=== PATIENT | female | born 1955 | race Caucasian/White ===

== ENCOUNTER 2025-04-03 09:33 | Outpatient (CLI) | payer MEDICARE, MEDICAID, SELFPAY ==
--- NOTE | 2025-04-03 | ECHO_ITS ---
Patient Info Name: Lluvia Brink Age: 69 years : 1955 Gender: Female Ht: 69 in Wt: 157 lbs BSA: 1.87 m2 HR: 65 bpm BP: 97 / 76 mmHg Technical Quality: Good Exam Date: 04/03/2025 9:54 AM Patient Status: unknown Admit Date: 04/03/2025 Exam Type: CA echo doppler color flow Complete two-dimensional, color flow and Doppler transthoracic echocardiogram is performed. Driver Education Instructor: Cathleen Rogel Attending Provider: Toni Dean DO Summary 1. Complete two-dimensional, color flow and Doppler transthoracic echocardiogram is performed. 2. Left ventricular systolic function is normal, estimated at 55-60. 3. There is severe asymmetric septal increased left ventricular wall thickness. Consistent with hypertrophic cardiomyopathy. 4. The left ventricular diastolic function is grade I diastolic dysfunction. Left Ventricle Left ventricular chamber dimension is normal. Left ventricular systolic function is normal, estimated at 55-60. There is severe asymmetric septal increased left ventricular wall thickness. Consistent with hypertrophic cardiomyopathy. Left ventricular septal wall motion is normal. The left ventricular diastolic function is grade I diastolic dysfunction. Right Ventricle Right ventricular chamber dimension is normal. Right ventricular systolic function is normal. Left Atria Left atrial chamber dimension is normal. Right Atria Right atrial chamber dimension is normal. Aortic Valve The aortic valve is trileaflet. There is no aortic valve sclerosis. There is no aortic valve stenosis. There is no aortic valve regurgitation. Pulmonic Valve The pulmonic valve is normal. There is no pulmonic valve stenosis. There is no pulmonic regurgitation. Mitral Valve The mitral valve has normal leaflets. There is no mitral valve stenosis. There is no mitral valve regurgitation. There is mild mitral valve calcification. Tricuspid Valve The tricuspid valve leaflets are normal. There is no significant tricuspid valve stenosis. There is no tricuspid valve regurgitation. Pericardium/Pleural The pericardium appears normal. There is no pericardial effusion. Inferior Vena Cava Normal inferior vena cava with >50% collapse upon inspiration consistent with normal right atrial pressure, 5 mmHg. Aorta The aortic root size at the sinus of Valsalva is normal. The prox ascending aorta size is normal. Left Ventricular Outflow Tract Name Value Normal LVOT 2D LVOT Diameter 2.0 cm LVOT Doppler LVOT Peak Velocity 174 cm/s LVOT Peak Gradient 12 mmHg LVOT Mean Gradient 6 mmHg LVOT VTI 36 cm LVOT VTI/AV VTI Ratio 0.9 LVOT Stroke Volume 113 ml LVOT CO 7.1 l/min LVOT CI 3.8 l/min/m2 Pulmonic Valve Name Value Normal RVOT Doppler RVOT Peak Velocity 121 cm/s RVOT Peak Gradient 6 mmHg PV Doppler PV Peak Velocity 125 cm/s PV Peak Gradient 6 mmHg Mitral Valve Name Value Normal MV Diastolic Function MV E Peak Velocity 60 cm/s MV A Peak Velocity 90 cm/s MV E/A 0.7 MV Decel Time (PW) 276 ms MV Annular TDI MV E/e' (Septal) 18.8 MV E/e' (Lateral) 10.7 MV E/e' (Average) 14.8 Tricuspid Valve Name Value Normal Estimated PAP/RSVP RA Pressure 5 mmHg <=5 Aortic Valve Name Value Normal AV Doppler AV Peak Velocity 185 cm/s AV Peak Gradient 14 mmHg AV Mean Gradient 7 mmHg AV VTI 39 cm AV Area (Cont Eq VTI) 2.9 cm2 >=3.0 AV Area (Cont Eq Nir) 2.9 cm2 AV DI (Nir) 0.94 AV Regurgitation 2D LVOT Area 3.1 cm2 Ventricles Name Value Normal LV Dimensions 2D/MM IVS Diastolic Thickness (2D) 2.4 cm 0.6-1.0 LVID Diastole (2D) 2.5 cm 3.8-5.2 LVIW Diastolic Thickness (2D) 1.1 cm 0.6-0.9 LVID Systole (2D) 1.8 cm 2.2-3.5 LVOT Diameter 2.0 cm LV Mass (2D Cubed) 166.41 g 67.00-162.00 LV Mass Index (2D Cubed) 89 g/m2 43-95 Relative Wall Thickness (2D) 0.87 <=0.42 LV Fractional Shortening/Ejection Fraction 2D/MM LV Fractional Shortening (2D) 30 % 27-45 LV EF (2D Teichholz) 59 % LV Diastolic Volume (4C MOD) 101 ml LV EF (4C MOD) 76 % LV Diastolic Volume (2C MOD) 92 ml LV EF (2C MOD) 81 % LV Diastolic Volume (BP MOD) 96 ml 46-106 LV Diastolic Volume Index (BP MOD) 52 ml/m2 29-61 LV Systolic Volume (BP MOD) 22 ml 14-42 LV Systolic Volume Index (BP MOD) 12 ml/m2 8-24 LV EF (BP MOD) 77 % 54-74 LV Diastolic Length (4C) 8.5 cm LV Systolic Length (4C) 6.1 cm LV Stroke Volume (4C MOD) 76 ml Atria Name Value Normal LA Dimensions LA Volume (4C A-L) 43 ml LA Volume (BP A-L) 48 ml RA Dimensions RA Area (4C) 12.1 cm2 <=18.0 Report Signatures
--- OUTSIDE RECORDS SUMMARY | 2025-04-03 10:16 | XMS_ITS ---
Author Organization [facility] Address [address] [place] [address] Care Team Providers Care Product Marketing Director Name Role Phone Darin Valles Primary Care Provider + Portillo Maciel MD Unavailable Pradeep Guerra MD Unavailable Active Problems Problem Noted Date Diagnosed Date Constipation 03/06/2025 Assessment & Plan (03/06/2025 2:03 PM CDT): - 03/06: no BM since admission, milk of magnesia ordered Abnormal CT scan 03/05/2025 Assessment & Plan (03/05/2025 11:07 AM CDT): - Right adnexal cystic lesions maximally measures 3.4 cm. These are slightly increased in size since 07/23/2021. Can consider follow-up imaging in 6-12 months to assess for interval change. - 03/05: discussed with patient at bedside ABLA (acute blood loss anemia) 03/04/2025 Assessment & Plan (03/04/2025 2:46 PM CDT): - Hgb 11.4 on admission - 03/01: Hgb 10.7 - CBC as indicated Discharge planning issues 03/04/2025 Assessment & Plan (03/06/2025 1:59 PM CDT): - 03/04: Patient is medically stable for discharge, SW/CM updated. Discharge pending family choice of facility - : Patient is medically stable for discharge, SW/CM updated. Discharge pending insurance authorization [x] treatment plan note Acute pain due to trauma 03/04/2025 Assessment & Plan (03/04/2025 2:47 PM CDT): - tylenol 1000 mg q6h - Ibuprofen 800 mg TID PRN - Oxycodone 5 mg q4h PRN Other closed displaced fract ure of proximal end of left humerus, initial encounter 03/02/2025 Assessment & Plan (03/06/2025 3:33 PM CDT): S/p mechanical fall. L proximal humerus fracture and L scapular body fracture. Ambulates with a walker at baseline, L arm dominant. -Ortho consulted - nonop management. -NWB LUE per ortho -Sling, out for ROM -PT/OT, pain control - DVT ppx at discharge: Eliquis 2.5 mg BID x 6 weeks - Follow up with Ortho Trauma 04/15/25 Pubic ramus fracture 03/02/2025 Assessment & Plan (03/06/2025 3:33 PM CDT): Left superior and inferior mildly displaced pubic rami fractures -Ortho consulted -CT pelvis and pelvic XR - non operative management - WBAT BLE - PT/OT, pain control - DVT ppx at discharge: Eliquis 2.5 mg BID x 6 weeks - Follow up with Ortho Trauma 04/15/25 Seizure disorder 03/02/2025 Assessment & Plan (03/02/2025 5:10 PM CDT): History of seizure disorder. -continue home meds: lamotrigine 200 mg BID, Keppra 750 mg BID, phenobarb 64.8 mg TID Calculus of gallbladder with out cholecystitis without obstruction 09/28/2021 Overview (09/28/2021): Added automatically from request for surgery [id number] Abnormal electrocardiogram (ECG) (EKG) Allergic rhinitis 09/07/2021 Asthma 09/07/2021 Assessment & Plan (03/04/2025 2:48 PM CDT): - continue home singulair Candidiasis 09/07/2021 Disorder of vitamin B12 09/07/2021 Folliculitis 09/07/2021 Gastroesophageal reflux disease 09/07/2021 Hyperlipidemia 09/07/2021 Pneumonia 09/07/2021 Pure hypercholesterolemia 09/07/2021 Assessment & Plan (03/04/2025 2:47 PM CDT): - continue home atorvastatin Vitamin D deficiency 09/07/2021 Anxiety 07/09/2021 Assessment & Plan (03/04/2025 2:54 PM CDT): - continue quetiapine 12.5 mg nightly COPD (chronic obstructive pulmonary disease) Assessment & Plan (03/02/2025 5:11 PM CDT): On home O2 2-3 L NC at night. 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 Past Treatment and Therapy Plans No past plan information found. Lifetime Dose Tracking * Chemical Lifetime Dose Automatic Entry Manual Entr y Fluoro Time 0.333 minutes 0.333 minutes 0 minutes Air kerma at the reference point (Ka,r) 1.48 mGy 1 .48 mGy 0 mGy DLP 1,241 mGycm 1,241 mGycm 0 mGycm Treatment Summaries Colon cancer (HCC)* Images from the original note were not included. [facility] [address] [place] [address] This Survivorship Care Plan is a cancer treatment summary and follow-up plan and is provided to youto keep with your health care records and to share with your primary care provider or any of your doctors and nurses. This summary is a brief record of major aspects of your cancer treatment not a detailed or comprehensive record of your care. You should review this with your cancer provider. Treatment Summary and Survivorship Care Plan for Colorectal Cancer General Information Patient name Lluvia Brink (home) Date of 1955 Health Care Providers (Including Names, Institutions) Provider Name: Contact Information: Primary Care Physician Darin Valles PA [phone] Surgeon Portilol Maciel MD [phone] Radiation Oncologist No care service team leader to display Medical Oncologist No care service team leader to display Ferruler Pradeep Guerra MD [phone] Treatment Summary Cancer Diagnosis Information Diagnosis Malignant neoplasm of sigmoid colon (CMS/HCC) (HCC) Diagnosis date 06/10/2021 Staging information Cancer Staging Stage II Predisposing Conditions None Family History of Colon, Rectal or Anal Cancer Colon, Rectal, or Anal Cancer- related family historyis not on file. Received Genetic counseling No Genetic Testing No Pre-op Colonoscopy Yes, sigmoidoscopy Completion to cecum No Treatment Completed Surgery Surgery date 07/24/2021 Surgical procedure / location / findings Laparoscopic Sigmoid Colon Resection and Oophorectomy Radiation No Permanent [place] No Persistent symptoms or side effects that have continued after finishing treatment: None Treatment Ongoing: No Follow-up Care Plan Your follow-up care plan is design to inform you and primary care providers regarding the recommended and required follow-up, cancer screening and routine health maintenance that is needed to maintain optimal health. Schedule of Clinical Visits Coordinating Provider When/How often Colon Surgeon: Portillo Maciel MD History and Physical every 3 months for 2 years then, every 6 months for following 3 years Darin Valles After 5 years of treatment completion - yearly exam Cancer Surveillance or other Recommended Tests Coordinating Provider Test How Often Colon Surgeon: Portillo Maciel MD Colonoscopy 1 year after surgery Colon Surgeon: Portillo Maciel MD CEA blood test Every 3 months for 2 years then every 6 months for following 3 years. Possible late- and long-term effects that someone with this type of cancer and treatment may experience: Bowel problems (urgency, incontinence, change in consistency) Numbness/tingling Fatigue Memory/concentration difficulty Patients receiving radiation therapy for rectal cancer may also experience: Pelvic insufficiency fractures Urinary problems - urinary incontinence Sexual dysfunction - erectile dysfunction, ejaculatory problems, menopause, vaginal dryness, painful intercourse Please continue to see your primary care provider for all general health care recommended for a patient your age, including cancer screening tests, except for colon cancer. Any symptoms should be brought to the attention of your provider: Anything that represents a brand new symptom; Anything that represents a persistent symptom; Anything you are worried about that might be related to the cancer coming back. Cancer survivors may experience issues with the areas listed below. If you have any concerns in these or other areas, please speak with your doctors or nurses to find out how you can get help with them. Anxiety and depression Emotional and mental health Fatigue Fertility Financial advice or assistance Insurance Memory or concentration loss Parenting Physical functioning School/work Sexual functioning Stopping smoking Weight changes Other A number of lifestyle/behaviors can affect your ongoing health, including the risk for the cancer coming back or developing another cancer. Discuss these recommendations with your doctor or nurse: Colon and Rectal cancer require lifelong surveillance. It is essential that you follow your doctors??? recommendations for follow up appointments and tests. Eat a healthy diet: focus on lean meats and proteins, more fruits, vegetables and whole grains and low in sugars and fats. Limit red meat and avoid processed meat. Maintain a healthy weight; avoid being overweight. Aim for a normal body mass index (BMI) of 18.5-24.9. Help learning to eat healthier, call the unit control worker at: [facility] . Have an active lifestyle, strive for 30 minutes of moderate exercise 5 times a week and strength orresistance training at least twice a week. Use broad-spectrum (UVA+UVB) sunscreen with SPF 30 or greater, is water resistant, limit time spentin the sun (10 am-4pm), wear hat, wear UV protective clothing, wear sunglasses. Never use a tanningbed. Skin that was irradiated may be more sensitive over your lifetime. Do not smoke or chew tobacco; participate in a smoking cessation program. Limit alcohol intake, 1 drink per day for a woman and 2 drinks per day for a man. Family members may be at risk for colorectal cancer, please advise your family members to discuss with their primary care physician their risk and screening needs. Family members may be at risk for colorectal cancer, please advise your family members to discuss with their primary care physician their risk and screening needs. Discuss your need for daily aspirin and other healthy life style measures with your primary care physician. Resources you may be interested in: [facility] A National Cancer [place] [facility] http://www.[facility] [place]/ [facility] 1st floor of [facility] [phone]. Computer access, educational material, counseling services (FREE) [employer] Association: the place for ostomy resources, advocacy, and support. www.ostomy.org The ostomy nurse at [facility] can be reached at [phone] Online Resources: www.cancer.net; http://www.cdc.gov/cancer/survivorship; http://www.cancercare.org/tagged/post-treatment_survivorship; http://www.cancer.gov/about-cancer/coping/survivorship [employer]: https://survivorship.cancer.gov/ an online tool for cancer survivors andcaregivers created by the [place] [employer] and the National Cancer [place]. It provides: Information on dealing with side effects from cancer and treatment Caregivers with support and resources Practical advice about talking to friends and family about cancer Questions to ask their health care team Help understanding their rights in the workplace
--- OUTSIDE RECORDS SUMMARY | 2025-04-03 10:16 | XMS_ITS ---
Author Organization [facility] Address [address] [place] [address] Care Team Providers Care Unloading Checker Name Role Phone Maurice Link MD Primary Care Provider [phone] [place] PROTOTYPE CARPENTER-FAMILY LITERACY COORDINATOR Unavailable [phone] Active Problems Problem Noted Date Diagnosed Date Closed displaced trimalleolar fracture of right ankle 04/06/2024 Fall, initial encounter 04/06/2024 Elevated CK 04/06/2024 Closed fracture of right ankle, initial encounte r 04/06/2024 Traumatic rhabdomyolysis, initial encounter 03/12 Ground-level fall 04/06/2024 Epilepsy 07/01/2021 COPD (chronic obstructive pulmonary disease) Acute encephalopathy 07/01/2021 Leukocytosis 07/01/2021 Ileus 07/01/2021 Primary hypertension 07/01/2021 Colon cancer 07/01/2021 Dysuria 06/26/2021 Altered mental status 06/26/2021 Acute cystitis without hematuria 06/26/2021 Dyspnea and respiratory abnormalities 06/26/2021 Seizures 06/26/2021 Current Treatment and Therapy Plans No current plan information found. Past Treatment and Therapy Plans No past plan information found. Lifetime Dose Tracking * Chemical Lifetime Dose Automatic Entry Manual Entr y Dose Length Product 1,297.8 mGy-cm 1,297.8 mGy-cm 0 mG y-cm
--- OUTSIDE RECORDS SUMMARY | 2025-04-03 10:16 | XMS_ITS | Clinical Summary ---
Author Organization [facility] [employer] Address [address] [place] [address] Care Team Providers Care Standards Engineer Name Role Phone Maurice Link MD Primary Care Provider [phone] America Ly APRN-FITNESS INSTRUCTOR Unavailable [phone] Source Comments [facility] [employer],non-owned Affiliates and Associated Physician Practices is amultiple site organization consisting of ambulatory clinics and hospital sitesin [place], [place], [place] and [place]. This disclosure is being madepursuant to the Care Everywhere program and may not contain all information available regarding this patient. Last updated 18.[facility] [employer] Allergies No known active allergies Medications * Be aware that medications may not be up to date on this document. Alwaysverify current medications with the patient. lamoTRIgine (LAMICTAL) 200 MG tablet Take 1 (one) tablet by mouth 2 times daily 1 Active PHENobarbital (LUMINAL) 64.8 MG tablet Take 1 (one) tablet by mouth 2 times daily for 90 days 60 tablet 2 1 04/12/20 25 Active atorvastatin (Lipitor) 40 MG tablet Take 1 (one) tablet by mouth at bedtime Active albuterol HFA (Proventil; Ventolin; Proair) 108 (90 Base) MCG/ACT inhaler Inhale 2 (two) puffs by mouth every 4 hours as needed for Shortness of Breath or Wheezing 4 Active budesonide-form oterol (Symbicort) 80-4.5 MCG/ACT inhaler Inhale 2 (two) puffs by mouth 2 times daily 4 Active polyethylene glycol 3350 (Miralax) 17 g packet Take 17 (seventeen) g by mouth once daily as needed for Constipation 4 Active vitamin D3 (Cholecaciferol ) 125 MCG (5000 UT) tablet Take 1 (one) tablet by mouth once daily 4 Active vitamin D3 (Cholecalcifero l) 25 MCG (1000 UNITS) tablet Take 1 (one) tablet by mouth once daily 4 Active apixaban (Eliquis) 2.5 MG tablet Take 1 (one) tablet by mouth 2 times daily for 35 days 4 Active oxyCODONE, immediate release, (Roxicodone) 5 MG tabletIndicatio ns:Closed bimalleolar fracture, unspecified laterality, initial encounter TAKE 1 TABLET BY MOUTH EVERY 4 HOURS NEEDED FOR PAIN 15 tablet 4 Active oxyCODONE, immediate release, (Roxicodone) 5 MG tabletIndicatio ns:Closed bimalleolar fracture, unspecified laterality, initial encounter Take 1 (one) tablet by mouth every 4 hours as needed 30 tablet 4 Active PHENobarbital 60 MG tablet Take 1 (one) tablet by mouth every 8 hours 90 tablet 3 4 Active Active Problems Problem Noted Date Diagnosed Date [...] Dyspnea and respiratory abnormalities 06/26/2021 Seizures 06/26/2021 Social History Tobacco Use Types Packs/Day Years Used Date Smoking Tobacco: Former Cigarettes Q uit: 07/11/2004 Smokeless Tobacco: Never Tobacco Cessation:Counseling Given: Not Answered Alcohol Use Standard Drinks/Week Comments Never 0 (1 standard drink = 0.6 oz pur e alcohol) AUDIT-C Answer Date Recorded Q1: How often do you have a drink containing alcohol? Never 04/06/2024 Q2: How many drinks containi ng alcohol do you have on a typical day when you are drinking? Patient does not drink Q3: How often do you have si x or more drinks on one occasion? Never 04/06/2024 Overall Financial Resource Strain (CARDIA) Answe r Date Recorded How hard is it for you to pa y for the very basics like food, housing, medical care, and heating? Not hard at all 04/06/2024 PHQ-2 Answer Date Recorded Patient Health Questionnaire-2 Score 0 07/27/2024 [facility] - Occupational Stress Questionnaire Answer Date Recorded Do you feel stress - tense, restless, nervous, or anxious, or unable to sleep at night because your mind is troubled all the time - these days? Not at all 04/06/2024 Hunger Vital Sign Answer Date Recorded Within the past 12 months, y ou worried that your food would run out before you got the money to buy more. Never true 04/06/20 24 Within the past 12 months, t he food you bought just didn't last and you didn't have money to get more. Never true 04/06/2024 PRAPARE - Transportation Answer Date Re corded In the past 12 months, has l ack of transportation kept you from medical appointments or from getting medications? No 03/12 In the past 12 months, has l ack of transportation kept you from meetings, work, or from getting things needed for daily living? No 04/06/2024 Housing Stability Vital Sign Answer Felipe e Recorded In the last 12 months, was t here a time when you were not able to pay the mortgage or rent on time? No 04/06/2024 In the last 12 months, how many places have you lived? 1 04/06/2024 In the last 12 months, was t here a time when you did not have a steady place to sleep or slept in a fpc (including now)? No 04/06/2024 Comments Unknown Sex and Gender Information Value Date Recorded Sex Assigned at Not on file Legal Sex Female 1:57 PM [employer]IDENTIAL [employer] Gender Identity Not on file Sexual Orientation Not on file Last Filed Vital Signs Vital Sign Reading Time Taken Comments Blood Pressure 121/71 05/14/2024 12:12 PM [employer]IDENTIAL [employer]PENTER Pulse 74 05/14/2024 12:12 PM [employer]IDENTIAL [employer]PENTER Temperature 36.2 C (97.2 F) 05/14/2024 12:12 PM [employer]IDENTIAL CARPENTER Respiratory Rate 20 05/14/2024 12:12 PM [employer]IDENTIAL CARPENTER Oxygen Saturation 94% 05/14/2024 12:12 PM [employer]IDENTIAL CARPENTER Inhaled Oxygen Concentration - - Weight 88 kg (194 lb) 07/27/2024 9:25 AM RESIDENTIAL CARPENTER Height 172.7 cm (5' 8) 07/27/2024 9:25 AM [facility]IDENTIAL [facility] Body Mass Index 29.5 07/27/2024 9:25 AM [facility]IDENT[facility] Plan of Treatment Health Maintenance Due Date Last Done Comments BONE DENSITY TESTING 1955 COLOGUARD (AGES 45-75) - COLON CA SCREENING 1955 CT COLONOGRAPHY - COLON CA SCREENING 1955 FIT - COLON CA SCREENING 1955 FLEX SIG - COLON CA SCREENING 1955 MAMMOGRAM 1955 MEDICARE AWV 12 MONTHS 1955 HEPATITIS C SCREENING 06/17/1973 DTAP/TDAP/TD VACCINES (1 - Tdap) 1974 PNEUMOCOCCAL VACCINE 50+ (1 of 2 - PCV) 1974 ZOSTER VACCINE (1 of 2) 2005 Respiratory Syncytial Virus (RSV) Vaccine Pt: or over 60 yrs (1 - Risk 60-74 years 1-dose series) 2015 COVID-19 VACCINE ( - season) 2025 INFLUENZA VACCINE (#1) 2025 2, 04/26/2019, 03/28/2018, Additional history exists SCREENING FOR DIABETES 04/11/2027 4, 04/10/2024, 04/09/2024, Additional history exists COLON MONITORING 07/23/2031 07/23/2021 COLONOSCOPY - COLON CA SCREENING 07/23/2031 07/23/2021 Colorectal Cancer Screening 07/23/2031 DEPRESSION SCREENING Completed 07/27/2024, 06/15/20 24 HEPATITIS B VACCINE Aged Out No longe r eligible based on patient's age to complete this topic HIB VACCINE Aged Out No longer eligi ble based on patient's age to complete this topic HPV VACCINE Aged Out No longer eligi ble based on patient's age to complete this topic MENINGOCOCCAL (Group B) VACCINE SHARED DECISION-MAKING Aged Out No longer eligible based on patient's age to complete this topic MENINGOCOCCAL GROUPS A/C/Y/W VACCINE Aged Out No longer eligible based on patient's age to complete this topic Goals Goal Patient Goal Type Associated Problems Recent Progress Patient-Stated? Author Safety General No Roya English RN Note: Expected end date: 04/13/2024 Interventions: Complete physical therapy Safe discharge Medical Devices Implanted Type Area Software Technical Lead Device Identifier Shelf Expiration Date Model / Serial / Lot Screw 2.7mm 2.1mm 14mm T8 Slf-Tap Lck Implanted:Qty: 2 on 04/09/2024 by Nacho Zavaleta DO at [facility] Right: Ankle [employer] 202.214 / / 3.5 Mm Locking Screws Self Tapping With Start Drive Recess 85mm Implanted:Qty: 1 on 04/09/2024 by Sathish Park MD at [facility] Right: Ankle 204.885 / / Screw 3.5mm 2.9mm 14mm T15 Ft Slf-Tap Implanted:Qty: 1 on 04/09/2024 by Sathish Park MD at [facility] Right: Ankle [employer] 212.103 / / Plate 7 Hl Fib Rt Dist Lat 125mm Contr Implanted:Qty: 1 on 04/09/2024 by Sathish Park MD at [facility] Right: Ankle [employer] [id number] / / Plate 3 Hl Shrp Hk Lopro Precontr Fib Implanted:Qty: 1 on 04/09/2024 by Sathish Park MD at [facility] Right: Ankle [employer] [id number] / / Screw 2.7mm 2.1mm 16mm T8 Slf-Tap Lck Implanted:Qty: 2 on 04/09/2024 by Nacho Zavaleta DO at [facility] Right: Ankle [employer] 202.216 / / Screw 2.7mm 2.1mm 18mm T8 Slf-Tap Lck Implanted:Qty: 3 on 04/09/2024 by Nacho Zavaleta DO at [facility] Right: Ankle [employer] 202.218 / / Screw 3.5mm 6mm 14mm [employer] Slf-Tap Sm Implanted:Qty: 2 on 04/09/2024 by Nacho Zavaleta DO at [facility] Right: Ankle [employer] 204.814 / / Screw 3.5mm 6mm 38mm 2.5mm Ft Slf-Tap Implanted:Qty: 1 on 04/09/2024 by Nacho Zavaleta DO at [facility] Right: Ankle [employer] 204.838 / / Screw 3.5mm 6mm 50mm Slf-Tap Sm Hex Sckt Implanted:Qty: 1 on 04/09/2024 by Nacho Zavaleta DO at [facility] Right: Ankle [employer] 204.850 / / Screw 3.5mm 6mm 55mm 2.5mm Ft Slf-Tap Implanted:Qty: 1 on 04/09/2024 by Nacho Zavaleta DO at [facility] Right: Ankle [employer] 204.855 / / Screw 3.5mm 6mm 44mm 2.5mm Ft Slf-Tap Implanted:Qty: 1 on 04/09/2024 by Nacho Zavaleta DO at [facility] Right: Ankle [employer] 204.844 / / Explanted Type Area Software Technical Lead Device Identifier Shelf Expiration Date Model / Serial / Lot Screw 3.5mm 6mm 95mm [employer] Slf-Tap Sm Explanted:Qty: 1 on 04/09/2024 by Sathish Park MD at [facility] Right: Ankle [employer] 204.895 / / Procedures Procedure Name Priority Date/Time Associated Diagnosis Comments RENAL FUNCTION PANEL Routine 04/11/2024 2:41 AM CDT from Last 3 Months or Most Recently Relevant to Health Maintenance Results * (ABNORMAL) RENAL FUNCTION PANEL (04/11/2024 2:41 AM CDT) BUN 9 7 - 26 mg/dL 04/11/2024 4:09 AM [facility] Creatinine 0.76 0.56 - 0.96 mg/dL 04/11/2024 4:09 AM [facility] Sodium 137 136 - 145 mmol/L 04/11/2024 4:09 AM [facility] Potassium 3.6 3.5 - 4.5 mmol/L 04/11/2024 4:09 AM [facility] Chloride 107 98 - 107 mmol/L 04/11/2024 4:09 AM [facility] CO2 23 22 - 29 mmol/L 04/11/2024 4:09 AM [facility] Glucose 98 70 - 115 mg/dL 04/11/2024 4:09 AM [facility] Albumin 2.6(L) 3.4 - 5.0 g/dL 04/11/2024 4:09 AM [facility] Calcium 9.5 8.4 - 10.2 mg/dL 04/11/2024 4:09 AM [facility] Phosphorus 2.3(L) 2.9 - 5.1 mg/dL 04/11/2024 4:09 AM [facility] Anion Gap 7 6 - 16 04/11/2024 4:09 AM [facility] BUN/Creatinine Ratio 12 7 - 23 04/11/2024 4:09 AM [facility] Osmolality Calculated 283 275 - 295 mOsm/kg 04/11/2024 4:09 AM [facility] eGFR by CKD-EPI 85(L) >=90 mL/min/1.7 3 m2 04/11/2024 4:09 AM [facility] Blood BLOOD SPECIMEN / Unknown Lab Venipuncture / Unknown 04/11/2024 2:41 AM CDT 04/11/2024 3:39 AM CDT us José Miguel Philip MD LAB - CHEMISTRY ORDERABLES F inal Result [facility] [address] [place] [address], [facility] [phone] from Last 3 Months or Most Recently Relevant to Health Maintenance Insurance [facility] MEDICARE Member Subscriber Plan / Payer (Ef fective 2023-Present) Name:Lluvia Brink Member ID:[id number] Relation to Subscriber:Self Name:Lluvia Brink Subscriber ID:[id number] Payer ID:Not on file Group ID:Not on file Type:Medicare Address: [place] [id number] MEDICARE Advance Directives * Full Code (Latest Code Status on File) Date Activated Date Inactivated Comments 04/06/2024 4:50 PM 04/11/2024 6:45 PM * Full Code Date Activated Date Inactivated Comments 06/26/2021 5:21 PM 07/01/2021 2:25 PM Care Teams Standards Engineer Relationship Specialty Start Date End Date Maurice Link MD [address] [place] [address] PCP - General Internal Medicine 07/27/24 America Ly APRN-FITNESS INSTRUCTOR [address] [place] [address] PCP - Attributed-[facility] 02/08/25
--- OUTSIDE RECORDS SUMMARY | 2025-04-03 10:16 | XMS_ITS | Clinical Summary ---
Author Organization [facility] Address [address] [place] [address] Care Team Providers Care [place]. Senator Name Role Phone Darin Valles Primary Care Provider + Portillo Maciel MD Unavailable [phone] Pradeep Guerra MD Unavailable [phone] Allergies Active Allergy Reactions Criticality Noted Date Comments Iodinated Contrast Media Unknown 06/10/2021 Medications lamoTRIgine (LaMICtal) 200 mg tabletIndication s:Tonic-Clonic Epilepsy Take 200 mg by mouth 2 (two) times a day 021 Active PHENobarbitaL (LUMINAL) 60 mg tabletIndication s:seizure disorder Take 64.8 mg by mouth 3 (three) times a day 970 Active cyanocobalamin (Vitamin B-12) 1,000 mcg sublingual tabletIndication s:Prevention of Vitamin B12 Deficiency Take 1,000 mcg by mouth 2 (two) times a day Active bisacodyl EC (DULCOLAX EC) 5 mg EC tabletIndication s:constipation Take 5 mg by mouth daily as needed Active atorvastatin (LIPITOR) 10 mg tabletIndication s:hyperlipidemia Take 10 mg by mouth every morning Active montelukast (SINGULAIR) 10 mg tabletIndication s:Seasonal Allergic Rhinitis Take 10 mg by mouth every morning Active cyanocobalamin (Vitamin B-12) 1,000 mcg/mL injectionIndicat ions:Vitamin B12 Deficiency Inject under the skin every 30 (thirty) days Active medical supply, miscellaneous (MISCELLANEOUS MEDICAL SUPPLY [facility]) nightly HOME OXYGEN AT BEDTIME: 2-3L/NC Active QUEtiapine (SEROquel) 25 mg tablet Take 0.5 tablets (12.5 mg total) by mouth nightly Active acetaminophen 500 mg capsuleIndicatio ns:Pain Take 2 capsules (1,000 mg total) by mouth every 6 (six) hours as needed (pain) Active ibuprofen (ADVIL,MOTRIN) 800 mg tablet Take 1 tablet (800 mg total) by mouth 3 (three) times a day as needed for pain Active apixaban (ELIQUIS) 2.5 mg tabletIndication s:VTE Prophylaxis Take 1 tablet (2.5 mg total) by mouth 2 (two) times a day 84 tablet 2024 Active levETIRAcetam (KEPPRA) 750 mg tablet Take 1 tablet (750 mg total) by mouth 2 (two) times a day Active polyethylene glycol (MIRALAX) 17 gram packetIndication s:constipation Take 1 packet (17 g total) by mouth daily Active senna-docusate (PERICOLACE) 8.6-50 mg Take 1 tablet by mouth 2 (two) times a day Active oxyCODONE (ROXICODONE) 5 mg immediate release tabletIndication s:Pain Take 1 tablet (5 mg total) by mouth every 4 (four) hours as needed for pain 15 tablet Active clonazePAM (KlonoPIN) 0.5 mg tablet every 12 hours 2024 Discontinued(S top Taking at Discharge) acetaminophen 500 mg capsuleIndicatio ns:Pain Take 2 capsules (1,000 mg total) by mouth every 6 (six) hours 30 tablet 2024 Discontinued ibuprofen (ADVIL,MOTRIN) 600 mg tabletIndication s:Postoperative Acute Pain Take 1 tablet (600 mg total) by mouth every 8 (eight) hours 30 tablet 022 2024 Discontinued(S top Taking at Discharge) oxyCODONE (ROXICODONE) 5 mg immediate release tabletIndication s:Pain Take 1 tablet (5 mg total) by mouth every 4 (four) hours as needed (breakthrough pain) 5 tablet 022 2024 Discontinued(S top Taking at Discharge) docusate sodium (COLACE) 100 mg capsuleIndicatio ns:constipation Take 1 capsule (100 mg total) by mouth 2 (two) times a day as needed for constipation with a glass of water. Hold for diarrhea 20 capsule 022 2024 Discontinued(S top Taking at Discharge) oxyCODONE (ROXICODONE) 5 mg immediate release tabletIndication s:Pain Take 1 tablet (5 mg total) by mouth every 4 (four) hours as needed for pain 10 tablet 022 2024 Discontinued Active Problems Problem Noted Date Diagnosed Date [...] Discharge pending family choice of facility - 03/05-: Patient is medically stable for discharge, SW/CM [...] (09/28/2021): Added automatically from request for surgery [id number] Abnormal electrocardiogram (ECG) (EKG) Allergic rhinitis 09/07/2021 [...] strain 03/28/2018 Labyrinthitis 09/07/2016 Pediculosis capitis 06/08/2016 Encounters Date Type Department Care Team Description 03/27/[address] [phone] Mariah Valdes RN 03/02/2025 4:00 AM CDT - 03/06/2025 3:34 PM CDT Hospital Encounter [address] [phone] Cleveland Pierce MD Paulsen, Robbie Ellen, MD Mariee, Joe Semaj, MD Other closed displaced fracture of proximal end of left humerus, initial encounter (Primary Dx); Closed fracture of left scapula, unspecified part of scapula, initial encounter; Closed fracture of left inferior pubic ramus, initial encounter (HCC); Closed fracture of superior ramus of left pubis, initial encounter (HCC) Discharge Disposition: Discharge to [facility] 02/23/2025 Documentation [facility] [address] [place] [address] 4th [address] [place] [address] Iveth Pepe MD from Last 3 Months Surgical History Surgery Date Site/Laterality Comments CARDIAC CATHETERIZATION COLON SURGERY 07/24/2021 SIGMOIDOSCOPY 07/23/2021 CHOLECYSTECTOMY 10/29/2021 Medical History Medical History Date Comments COPD (chronic obstructive pulmonary disease) HTN (hypertension) Heart attack ([facility]) 2008 Colon cancer ([facility]) 04/08/2021 Mild cognitive impairment GERD (gastroesophageal reflux disease) Seizure disorder ([facility]) since age 5 RBBB (right bundle branch block) On home oxygen therapy 2-3L/NC a t night Sleep apnea Family History Medical History Relation Name Comments Stroke Sister Anesthesia problems Neg Hx Relation Name Status Comments Sister Social History Tobacco Use Types Packs/Day Years Used Date Smoking Tobacco: Former Cigarettes Q uit: 2004 Smokeless Tobacco: Never AUDIT-C Answer Date Recorded Q1: How often do you have a drink containing alc ohol? Never 10/21/2021 Average Number of Drinks Not on file 022 Q3: How often do you have si x or more drinks on one occasion? Never 10/21/2021 Personal Safety Answer Date Recorded Have you ever been in or are you currently in a harmful physical or emotional relationship or is someone making you feel afraid or unsafe? 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 Gender Identity Not on file Sexual Orientation Not on file Obstetrics History Last Filed Vital Signs Vital Sign Reading Time Taken Comments Blood Pressure 121/68 03/06/2025 3:58 PM CDT Pulse 71 03/06/2025 3:58 PM CDT Temperature 36.6 C (97.9 F) 03/06/2025 3:58 PM CDT Respiratory Rate 18 03/06/2025 4:41 AM CDT Oxygen Saturation 93% 03/06/2025 3:58 PM CDT Inhaled Oxygen Concentration - - Weight 67.6 kg (149 lb) 03/03/2025 1:21 AM CDT Height 175.3 cm (5' 9) 03/02/2025 4:14 AM CDT Body Mass Index 22 03/02/2025 4:14 AM CDT Plan of Treatment Health Maintenance Due Date Last Done Comments Breast Cancer Screening-Mammogram 1955 Depression Screening 1955 Hepatitis C Screening 1955 Osteoporosis Screening-Bone Density Scan 1955 DTaP/Tdap/Td Vaccine (1 - Tdap) 1966 Hepatitis B Screening 1973 Zoster Vaccine (1 of 2) 2005 Pneumococcal vaccine 65+ (2 of 2 - PCV) 04/08/2018 04/08/2017 Well Visit 65+ 2020 Influenza Vaccine (#1) 2025 2, 04/26/2019, 03/28/2018, Additional history exists Fall Risk Assessment 03/06/2026 03/06/2025 Colon Cancer Screening-Colonoscopy 07/23/20312021 Medical Devices Implanted Type Area Superintendent Stations Device Identifier Shelf Expiration Date Model / Serial / Lot Vesolock [id number] Symmetry Vesolock Large Clip Internal - [id number] - [id number] Implanted:Qty: 2 on 10/29/2021 by Ezequiel Casiano MD PhD at [facility] Clip N/A: Abdomen [employer] 05/11/2024 [id number] / [id number] / [id number] Procedures Procedure Name Priority Date/Time Associated Diagnosis Comments INFECTION PREVENTION SOPHIA AURIS PCR, SURVEILLANCE Routine 03/06/2025 6:09 PM CDT ALBUMIN Routine 03/03/2025 8:06 PM CDT EGFR Routine 03/03/2025 8:06 PM CDT CBC WITHOUT DIFFERENTIAL Routine 03/03/2025 8:06 PM CDT BASIC METABOLIC PANEL Routine 03/03/2025 8:06 PM CDT ECG 12-LEAD Routine 03/02/2025 8:[address] PELVIS WO CONTRAST ED 03/02/2025 2:00 PM CDT XR PELVIS 3 OR MORE VIEWS ED 03/02/2025 1:52 PM CDT XR PELVIS 1 OR 2 VIEWS ED 03/02/2025 11:20 AM CDT XR CHEST 1 VIEW ED 03/02/2025 11:[address] SHOULDER LEFT WO CONTRAST ED Urgent/IP Urgent 03/02/2025 7:22 AM CDT XR SHOULDER LEFT 2 OR MORE VIEWS ED Urgent/IP Urgent 03/02/2025 6:22 AM CDT XR HUMERUS LEFT 2 OR MORE VIEWS ED Urgent/IP Urgent 03/02/2025 5:41 AM CDT EGFR STAT 03/02/2025 4:15 AM CDT DIFFERENTIAL AUTO STAT 03/02/2025 4:1 5 AM CDT PROTIME-INR STAT 03/02/2025 4:15 AM CDT APTT STAT 03/02/2025 4:15 AM CDT CBC WITH AUTO DIFFERENTIAL STAT 03/02/2025 4:15 AM CDT BASIC METABOLIC PANEL STAT 03/02/2025 4:15 AM CDT COLONOSCOPY 07/23/2021 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 Comment: Interpretive Data Testing performed by [facility] using the Jefe rony [id number] Sophia auris assay. This assay detects DNA from Sophia auris using Real-Time PCR. This assay is laboratory developed and is not cleared by the [place] Food and Drug Administration. The performance characteristics have been verified by the [facility]. Axilla/Groin 03/06/2025 6:09 PM CDT 03/06/2025 6:20 PM CDT Narrative HILDA [facility] - 03/07/2025 1:02 AM CDT Order placed by [facility] due to ring surveillance. us Instant Order Generic Provider LAB MICROBIOLOGY - GENERAL ORDERABLES Final Result [facility] [place] [address] [facility] * eGFR (03/03/2025 8:06 PM CDT) eGFR 79 >=60 mL/min/1. 73 m2 Comment: Interpretive Data Reference Interval Normal >/= 90 mL/min/1.73m2 Mildly decreased* 60 - 89 mL/min/1.73m2 Mildly to moderately decreased 45 - 59 mL/min/1.73m2 Moderately to severely decreased 30 - 44 mL/min/1.73m2 Severely decreased 15 - 29 mL/min/1.73m2 Kidney Failure < 15 mL/min/1.73m2 *Relative to young adult level Estimated glomerular filtration rate is determined by the 2020 CKD-EPI equation recommended by the National Kidney Foundation (A Unifying Approach to GFR Estimation: Recommendations of the NKF-ASK Task Force on Reassessing the Inclusion of Race in Diagnosing Kidney Disease, JASN 2020). The CKD-EPI equation should not be used for patients with unstable renal function and has not been validated in children and those over 70. Current interpretive data was last reviewed 2021. Blood 03/03/2025 8:06 PM CDT 03/03/2025 9:18 PM CDT Joe Mariee MD LAB BLOOD ORDERABLES Roberta dolores Result Performing Organization Address [facility] Co de Phone Number [facility] Department [place] [address] * (ABNORMAL) CBC without differential (03/03/2025 8:06 PM CDT) Pathologist [facility] [place] WBC 5.32 3.80 - 9.90 K/cumm Hgb 10.7(L) 11.9 - 15.5 g/dL [facility] Hct 31.9(L) 35.6 - 45.5 % [facility] Plt 199 150 - 400 K/cumm [facility] MPV 10.8 9.1 - 12.3 fL [facility] RBC 3.33(L) 3.90 - 5.20 M/cumm [facility] MCV 95.8 81.3 - 96.4 fL [facility] MCH 32.1 27.1 - 33.3 pg [facility] MCHC 33.5 32.3 - 35.7 g/dL [facility] RDW CV 11.9 11.1 - 14.9 % [facility] RDW SD 41.2 35.7 - 48.1 fL [facility] NRBC abs 0.00 0.00 - 0.01 K/cumm [facility] Blood 03/03/2025 8:06 PM CDT 03/03/2025 9:17 PM CDT Joe Mariee MD LAB BLOOD ORDERABLES Roberta bernal Result Performing Organization Address [facility]/ZIP Co de Phone Number [facility] Department [place] [address] * (ABNORMAL) Albumin (03/03/2025 8:06 PM CDT) Pathologist [facility] [place] Albumin 3.2(L) 3.5 - 5.0 g/dL Blood 03/03/2025 8:06 PM CDT 03/03/2025 9:18 PM CDT Niles Albarran MD LAB BLOOD ORDERABLES Roberta l Result Performing Organization Address [facility]/ZIP Co de Phone Number [facility] [place] [address] * Basic metabolic panel (03/03/2025 8:06 PM CDT) [facility] Sodium 136 135 - 145 mmol/L Potassium, pl 4.0 3.3 - 4.9 mmol/L [facility] Chloride 102 97 - 110 mmol/L [facility] CO2 25 22 - 32 mmol/L [facility] Anion gap 9 2 - 15 mmol/L [facility] BUN 17 6 - 25 mg/dL [facility] Creatinine 0.81 0.60 - 1.10 mg/dL [facility] Glucose 90 70 - 199 mg/dL [facility] Comment: Interpretive Data Fasting glucose >/= 126 mg/dl is diagnostic for diabetes. Fasting is defined as no caloric intake for at least 8 hours. Fasting glucose between 100 mg/dl to 125 mg/dl is diagnostic of prediabetes. In a patient with classic symptoms of hyperglycemia or hyperglycemic crisis, a random glucose >/= 200 mg/dl is diagnostic for diabetes. In the absence of unequivocal hyperglycemia, results should be confirmed by repeat testing. The classification and Diagnosis of Diabetes Diabetes Care 2021; 46: S19-S40. Current interpretive data was last revised 2022. Calcium 9.8 8.5 - 10.3 mg/dL [facility] Blood 03/03/2025 8:06 PM CDT 03/03/2025 9:18 PM CDT Joe Mariee MD LAB BLOOD ORDERABLES Roberta l Result Performing Organization Address [facility] Co de Phone Number [facility] Department [place] [employer] [place] [address] * ECG 12 lead (03/02/2025 8:08 PM CDT) Ventricular Rate EKG/Min 71 BPM [facility] Atrial Rate 71 BPM [facility] ND-Interval (MSEC) 152 ms [facility] QRS-Interval (MSEC) 144 ms [facility] QT-Interval (MSEC) 442 ms [facility] QTc 480 ms [facility] R Truro 227 degrees [facility] T Truro 67 degrees [facility] Diagnosis Normal sinus rhythm Right bundle branch block , plus right ventricular hypertrophy Abnormal ECG Confirmed by Rahul GRANDE, [facility] ([id number]) on 03/05/2025 8:20:01 AM [facility] 03/02/2025 8:08 PM CDT 03/05/2025 8:20 AM CDT us Joe Mariee MD ECG ORDERABLES Final Res ult [facility] * CT Pelvis WO Contrast (03/02/2025 2:00 PM CDT) Anatomical Region Laterality Modality Body N/A Computed Tomogra phy 03/02/2025 2:06 PM CDT Impressions 03/02/2025 4:35 PM CDT 1. Subacute appearing left superior and inferior pubic rami fractures extending to the pubic body with some surrounding osseous callus formation suggesting interval healing. 2. Linear areas of sclerosis involving the sacrum extending into the right and left sacral ala are concerning for sacral insufficiency fractures. Pelvic MRI may be helpful in determining extent of insufficiency fractures. 3. Right adnexal cystic lesions maximally measures 3.4 cm. These are slightly increased in size since 07/23/2021. Can consider follow-up imaging in 6-12 months to assess for interval change. Dictated by: Shahram Darnell MD The radiology attending physician has personally reviewed this study, and had reviewed and/or edited this written report and agrees with it. Electronically signed by: Lashell Card M.D. Narrative 03/02/2025 4:35 PM CDT EXAMINATION: Computed tomography of the pelvis without intravenous contrast HISTORY: Pelvic fracture TECHNIQUE: Transaxial computed tomographic images of the pelvis were obtained without intravenous contrast according to the standard protocol. COMPARISON: August FINDINGS: Comminuted fractures of the left superior and inferior pubic rami with involvement of the pubic body. There is surrounding callus likely reflecting an element of interval healing. Linear sclerotic appearance of the left and right sacral ala, greater on the left, likely reflecting sacral insufficiency fractures. Hips are seated in the acetabula without significant osteoarthritic changes. Evaluation of the intrapelvic structures on this nondedicated examination. Bladder appears normal. Calcified uterine fibroids. No abnormal pelvic lymphadenopathy. Two right adnexal cystic lesions 3.4 and 2.7 cm respectively. These are slightly increased in size since 07/23/2021 Mild scattered atherosclerotic calcifications within the iliac vessels. Imaged portion of the bowel is within normal limits without evidence of obstruction. Surgical changes of lower anterior resection. Procedure Note Lashell Card MD - 03/02/2025 EXAMINATION: Computed tomography of the pelvis without intravenous contrast HISTORY: Pelvic fracture TECHNIQUE: Transaxial computed tomographic images of the pelvis were obtained without intravenous contrast according to the standard protocol. COMPARISON: August FINDINGS: Comminuted fractures of the left superior and inferior pubic rami with involvement of the pubic body. There is surrounding callus likely reflecting an element of interval healing. Linear sclerotic appearance of the left and right sacral ala, greater on the left, likely reflecting sacral insufficiency fractures. Hips are seated in the acetabula without significant osteoarthritic changes. Evaluation of the intrapelvic structures on this nondedicated examination. Bladder appears normal. Calcified uterine fibroids. No abnormal pelvic lymphadenopathy. Two right adnexal cystic lesions 3.4 and 2.7 cm respectively. These are slightly increased in size since 07/23/2021 Mild scattered atherosclerotic calcifications within the iliac vessels. Imaged portion of the bowel is within normal limits without evidence of obstruction. Surgical changes of lower anterior resection. IMPRESSION: 1. Subacute appearing left superior and inferior pubic rami fractures extending to the pubic body with some surrounding osseous callus formation suggesting interval healing. 2. Linear areas of sclerosis involving the sacrum extending into the right and left sacral ala are concerning for sacral insufficiency fractures. Pelvic MRI may be helpful in determining extent of insufficiency fractures. 3. Right adnexal cystic lesions maximally measures 3.4 cm. These are slightly increased in size since 07/23/2021. Can consider follow-up imaging in 6-12 months to assess for interval change. Dictated by: Shahram Darnell MD The radiology attending physician has personally reviewed this study, and had reviewed and/or edited this written report and agrees with it. Electronically signed by: Lashell Card M.D. Piotr Machuca MD IM CT PROCEDURES Final Result * XR Pelvis 3 or More Views (03/02/2025 1:52 PM CDT) Anatomical Region Laterality Modality Pelvis, Body N/A Computed Radiogr aphy 03/02/2025 2:00 PM CDT Impressions 03/02/2025 4:36 PM CDT FINDINGS/IMPRESSION: Fractures of the left inferior and superior pubic rami extending to the pubic body are similar to prior study. Alignment of the hips is within normal limits. Linear areas of sclerosis through the sacrum are better appreciated on the prior CT of the pelvis. Findings are better appreciated on the separately performed CT of the pelvis. Dictated by: Shahram Darnell MD The radiology attending physician has personally reviewed this study, and had reviewed and/or edited this written report and agrees with it. Electronically signed by: Lashell Card M.D. Narrative 03/02/2025 4:36 PM CDT EXAMINATION: XR PELVIS 3 OR MORE VIEWS HISTORY: pain INLET/OUTLET/JUDET VIEWS COMPARISON: Radiograph from 03/02/2025 Procedure Note Lashell Card MD - 03/02/2025 EXAMINATION: XR PELVIS 3 OR MORE VIEWS HISTORY: pain INLET/OUTLET/JUDET VIEWS COMPARISON: Radiograph from 03/02/2025 IMPRESSION: FINDINGS/IMPRESSION: Fractures of the left inferior and superior pubic rami extending to the pubic body are similar to prior study. Alignment of the hips is within normal limits. Linear areas of sclerosis through the sacrum are better appreciated on the prior CT of the pelvis. Findings are better appreciated on the separately performed CT of the pelvis. Dictated by: Shahram Darnell MD The radiology attending physician has personally reviewed this study, and had reviewed and/or edited this written report and agrees with it. Electronically signed by: Lashell Card M.D. Joe Mariee MD IMG XR PROCEDURES Final R esult * XR Pelvis 1 or 2 Views (03/02/2025 11:20 AM CDT) Anatomical Region Laterality Modality Body, Pelvis N/A Computed Radiogr aphy 03/02/2025 11:3 2 AM CDT Impressions 03/02/2025 11:32 AM CDT Chest: Comminuted left humeral neck fracture, better assessed on earlier studies. The heart size and mediastinal contour are normal. No pleural effusion, pneumothorax, pneumonia, or pulmonary edema are present. Pelvis: Left superior and inferior pubic rami mildly displaced fractures. Both hips are seated without identification of additional pelvic fractures. Electronically signed by: Vicente Phillips M.D. Narrative 03/02/2025 11:32 AM CDT EXAMINATION: XR CHEST 1 VIEW, XR PELVIS 1 OR 2 VIEWS HISTORY: Accidental fall COMPARISON: Same-day radiographs and CT of the left shoulder Procedure Note Vicente Phillips MD - 03/02/2025 EXAMINATION: XR CHEST 1 VIEW, XR PELVIS 1 OR 2 VIEWS HISTORY: Accidental fall COMPARISON: Same-day radiographs and CT of the left shoulder IMPRESSION: Chest: Comminuted left humeral neck fracture, better assessed on earlier studies. The heart size and mediastinal contour are normal. No pleural effusion, pneumothorax, pneumonia, or pulmonary edema are present. Pelvis: Left superior and inferior pubic rami mildly displaced fractures. Both hips are seated without identification of additional pelvic fractures. Electronically signed by: Vicente Phillips M.D. Piotr Machuca MD [facility] XR PROCEDURES Final Result * XR Chest 1 Vw Portable (03/02/2025 11:20 AM CDT) Anatomical Region Laterality Modality Body, Chest N/A Computed Radiogr aphy 03/02/2025 11:3 2 AM CDT Impressions 03/02/2025 11:32 AM CDT Chest: Comminuted left humeral neck fracture, better assessed on earlier studies. The heart size and mediastinal contour are normal. No pleural effusion, pneumothorax, pneumonia, or pulmonary edema are present. Pelvis: Left superior and inferior pubic rami mildly displaced fractures. Both hips are seated without identification of additional pelvic fractures. Electronically signed by: Vicente Phillips M.D. Narrative 03/02/2025 11:32 AM CDT EXAMINATION: XR CHEST 1 VIEW, XR PELVIS 1 OR 2 VIEWS HISTORY: Accidental fall COMPARISON: Same-day radiographs and CT of the left shoulder Procedure Note Vicente Phillips MD - 03/02/2025 EXAMINATION: XR CHEST 1 VIEW, XR PELVIS 1 OR 2 VIEWS HISTORY: Accidental fall COMPARISON: Same-day radiographs and CT of the left shoulder IMPRESSION: Chest: Comminuted left humeral neck fracture, better assessed on earlier studies. The heart size and mediastinal contour are normal. No pleural effusion, pneumothorax, pneumonia, or pulmonary edema are present. Pelvis: Left superior and inferior pubic rami mildly displaced fractures. Both hips are seated without identification of additional pelvic fractures. Electronically signed by: Vicente Phillips M.D. Piotr Machuca MD IMG XR PROCEDURES Final Result * CT Shoulder Left WO Contrast (03/02/2025 7:22 AM CDT) Anatomical Region Laterality Modality Upper Extremities Left Computed Tomog christine 03/02/2025 10:1 8 AM CDT Impressions 03/02/2025 10:38 AM CDT 1. Comminuted displaced 2 part proximal humeral fracture. 2. Minimally displaced scapular body fracture. Dictated by: Adri Hays M.D. The radiology attending physician has personally reviewed this study, and had reviewed and/or edited this written report and agrees with it. Electronically signed by: Vicente Phillips M.D. Narrative 03/02/2025 10:38 AM CDT EXAMINATION: CT SHOULDER LEFT WO CONTRAST HISTORY: Left humeral fracture COMPARISON: 03/02/25 x-ray FINDINGS: There is a comminuted 2 part proximal humeral fracture with greater than 1 cm displacement of the proximal humeral shaft with adjacent fat stranding. There is no glenohumeral dislocation. There is internal fixation of the glenoid. There is a minimally displaced scapular body fracture (series 2, image 108 and series 5, image 135). There is no clavicle fracture. Procedure Note Vicente Phillips MD - 03/02/2025 EXAMINATION: CT SHOULDER LEFT WO CONTRAST HISTORY: Left humeral fracture COMPARISON: 03/02/25 x-ray FINDINGS: There is a comminuted 2 part proximal humeral fracture with greater than 1 cm displacement of the proximal humeral shaft with adjacent fat stranding. There is no glenohumeral dislocation. There is internal fixation of the glenoid. There is a minimally displaced scapular body fracture (series 2, image 108 and series 5, image 135). There is no clavicle fracture. IMPRESSION: 1. Comminuted displaced 2 part proximal humeral fracture. 2. Minimally displaced scapular body fracture. Dictated by: Adri Hays M.D. The radiology attending physician has personally reviewed this study, and had reviewed and/or edited this written report and agrees with it. Electronically signed by: Vicente Phillips M.D. Cleveland Christiano Pierce MD IMG CT PROCEDURES Final R esult * XR Shoulder Left 2 or More Views (03/02/2025 6:22 AM CDT) Anatomical Region Laterality Modality Upper Extremities, Shoulder Left Comp uted Radiography 03/02/2025 6:43 AM CDT Impressions 03/02/2025 10:45 AM CDT Comparison to same day radiograph at 5:34 AM. Screw fixation of the glenoid. Redemonstrated transverse fracture of the left humeral surgical neck with medial displacement of the distal fracture fragment. The humeral head is located. Soft tissue swelling about the proximal left arm. Dictated by: Phillip Deleon M.D. The radiology attending physician has personally reviewed this study, and had reviewed and/or edited this written report and agrees with it. Electronically signed by: Vicente Phillips M.D. Narrative 03/02/2025 10:45 AM CDT EXAMINATION: XR SHOULDER LEFT 2 OR MORE VIEWS HISTORY: Fracture Procedure Note Vicente Phillips MD - 03/02/2025 EXAMINATION: XR SHOULDER LEFT 2 OR MORE VIEWS HISTORY: Fracture IMPRESSION: Comparison to same day radiograph at 5:34 AM. Screw fixation of the glenoid. Redemonstrated transverse fracture of the left humeral surgical neck with medial displacement of the distal fracture fragment. The humeral head is located. Soft tissue swelling about the proximal left arm. Dictated by: Phillip Deleon M.D. The radiology attending physician has personally reviewed this study, and had reviewed and/or edited this written report and agrees with it. Electronically signed by: Vicente Phillips M.D. Cleveland Pierce MD IMG XR PROCEDURES Final R esult * XR Humerus Left 2 or More Views (03/02/2025 5:41 AM CDT) Anatomical Region Laterality Modality Upper Extremities, Upper Arm Left Com puted Radiography 03/02/2025 5:53 AM CDT Impressions 03/02/2025 10:42 AM CDT FINDINGS/IMPRESSION: No comparison. Screw fixation of the glenoid. Transverse fracture of the left humeral surgical neck with medial displacement of the distal fracture fragment. No definite dislocation. Dictated by: Eriberto Friedman MD The radiology attending physician has personally reviewed this study, and had reviewed and/or edited this written report and agrees with it. Electronically signed by: Vicente Phillips M.D. Narrative 03/02/2025 10:42 AM CDT EXAMINATION: XR HUMERUS LEFT 2 OR MORE VIEWS HISTORY: Fracture Procedure Note Vicente Phillips MD - 03/02/2025 EXAMINATION: XR HUMERUS LEFT 2 OR MORE VIEWS HISTORY: Fracture IMPRESSION: FINDINGS/IMPRESSION: No comparison. Screw fixation of the glenoid. Transverse fracture of the left humeral surgical neck with medial displacement of the distal fracture fragment. No definite dislocation. Dictated by: Eriberto Friedman MD The radiology attending physician has personally reviewed this study, and had reviewed and/or edited this written report and agrees with it. Electronically signed by: Vicente Phillips M.D. Cleveland Pierce MD IMG XR PROCEDURES Final R esult * eGFR (03/02/2025 4:15 AM CDT) eGFR 86 >=60 mL/min/1. 73 m2 Comment: Interpretive Data Reference Interval Normal >/= 90 mL/min/1.73m2 Mildly decreased* 60 - 89 mL/min/1.73m2 Mildly to moderately decreased 45 - 59 mL/min/1.73m2 Moderately to severely decreased 30 - 44 mL/min/1.73m2 Severely decreased 15 - 29 mL/min/1.73m2 Kidney Failure < 15 mL/min/1.73m2 *Relative to young adult level Estimated glomerular filtration rate is determined by the 2020 CKD-EPI equation recommended by the National [employer] (A Unifying Approach to GFR Estimation: Recommendations of the NKF-ASK Task Force on Reassessing the Inclusion of Race in Diagnosing Kidney Disease, JASN 2020). The CKD-EPI equation should not be used for patients with unstable renal function and has not been validated in children and those over 70. Current interpretive data was last reviewed 2021. Blood 03/02/2025 4:15 AM CDT 03/02/2025 4:24 AM CDT Cleveland Pierce MD LAB BLOOD ORDERABLES Roberta l Result [facility] [place] [address] * Differential, auto (03/02/2025 4:15 AM CDT) Neutrophil abs 5.82 1.50 - 6.50 K/cumm Imm gran abs 0.03 0.00 - 0.10 K/cumm [facility] Lymphocyte abs 1.49 0.80 - 3.30 K/cumm [facility] Monocyte abs 0.80 0.20 - 0.80 K/cumm [facility] Eosinophil abs 0.03 0.00 - 0.50 K/cumm [facility] Basophil abs 0.02 0.00 - 0.10 K/cumm [facility] Neutrophil pct 71.0 % [facility] Comment: Interpretive Data Percent cell count reference ranges are not reported, since discordance with absolute values may lead to misinterpretation of CBC data. Current Interpretive Data was last revised on 2017. Imm gran pct 0.4 % [facility] Comment: Interpretive Data Percent cell count reference ranges are not reported, since discordance with absolute values may lead to misinterpretation of CBC data. Current Interpretive Data was last revised on 2017. Lymphocyte pct 18.2 % [facility] Comment: Interpretive Data Percent cell count reference ranges are not reported, since discordance with absolute values may lead to misinterpretation of CBC data. Current Interpretive Data was last revised on 2017. Monocyte pct 9.8 % [facility] Comment: Interpretive Data Percent cell count reference ranges are not reported, since discordance with absolute values may lead to misinterpretation of CBC data. Current Interpretive Data was last revised on 2017. Eosinophil pct 0.4 % [facility] Comment: Interpretive Data Percent cell count reference ranges are not reported, since discordance with absolute values may lead to misinterpretation of CBC data. Current Interpretive Data was last revised on 2017. Basophil pct 0.2 % [facility] Comment: Interpretive Data Percent cell count reference ranges are not reported, since discordance with absolute values may lead to misinterpretation of CBC data. Current Interpretive Data was last revised on 2017. Blood 03/02/2025 4:15 AM CDT 03/02/2025 4:24 AM CDT Cleveland Pierce MD LAB BLOOD ORDERABLES Roberta bernal Result [facility] [place] [address] * (ABNORMAL) CBC with auto differential (03/02/2025 4:15 AM CDT) [facility] WBC 8.19 3.80 - 9.90 K/cumm Hgb 11.4(L) 11.9 - 15.5 g/dL [facility] Hct 34.6(L) 35.6 - 45.5 % [facility] Plt 209 150 - 400 K/cumm [facility] MPV 10.0 9.1 - 12.3 fL [facility] RBC 3.54(L) 3.90 - 5.20 M/cumm [facility] MCV 97.7(H) 81.3 - 96.4 fL [facility] MCH 32.2 27.1 - 33.3 pg [facility] MCHC 32.9 32.3 - 35.7 g/dL [facility] RDW CV 11.8 11.1 - 14.9 % [facility] RDW SD 42.8 35.7 - 48.1 fL [facility] NRBC abs 0.00 0.00 - 0.01 K/cumm [facility] Blood 03/02/2025 4:15 AM CDT 03/02/2025 4:24 AM CDT Cleveland Pierce MD LAB BLOOD ORDERABLES Roberta bernal Result [facility] [place] [address] * (ABNORMAL) aPTT (03/02/2025 4:15 AM CDT) [facility] aPTT 24(L) 26 - 38 sec Comment: Interpretive Data Heparin therapeutic range: 66.0 - 100.0 seconds. Range based on correlation with therapeutic heparin activity range of 0.3 - 0.7 Units/mL. Current interpretive data was last revised on 2023. Blood 03/02/2025 4:15 AM CDT 03/02/2025 4:32 AM CDT Cleveland Pierce MD LAB BLOOD ORDERABLES Roberta l Result Performing Organization Address [facility] Co de Phone Number [facility] [place] [address] * Protime-INR (03/02/2025 4:15 AM CDT) PT 11.3 10.2 - 13.5 sec INR 1.00 0.90 - 1.20 [facility] Comment: Interpretive data Oral anticoagulant therapeutic ranges: Venous thromboembolism prophylaxis or treatment: 2.0-3.0 CARDIOLOGY Standard range: 2.0-3.0 High-intensity range: 2.5-3.5 Refer to indication-specific guidelines for appropriate target ranges for prosthetic heart valve replacement. Current interpretive data was last revised on 2019. Blood 03/02/2025 4:15 AM CDT 03/02/2025 4:32 AM CDT Cleveland Pierce MD LAB BLOOD ORDERABLES Roberta l Result Performing Organization Address [facility] de Phone Number [facility] [place] [address] * (ABNORMAL) Basic metabolic panel (03/02/2025 4:15 AM CDT) Sodium 141 135 - 145 mmol/L Potassium, pl 4.5 3.3 - 4.9 mmol/L [facility] Chloride 111(H) 97 - 110 mmol/L [facility] CO2 23 22 - 32 mmol/L [facility] Anion gap 7 2 - 15 mmol/L [facility] BUN 18 6 - 25 mg/dL [facility] Creatinine 0.75 0.60 - 1.10 mg/dL [facility] Glucose 124 70 - 199 mg/dL [facility] Comment: Interpretive Data Fasting glucose >/= 126 mg/dl is diagnostic for diabetes. Fasting is defined as no caloric intake for at least 8 hours. Fasting glucose between 100 mg/dl to 125 mg/dl is diagnostic of prediabetes. In a patient with classic symptoms of hyperglycemia or hyperglycemic crisis, a random glucose >/= 200 mg/dl is diagnostic for diabetes. In the absence of unequivocal hyperglycemia, results should be confirmed by repeat testing. The classification and Diagnosis of Diabetes Diabetes Care 202; 46: S19-S40. Current interpretive data was last revised 2022. Calcium 9.7 8.5 - 10.3 mg/dL [facility] Blood 03/02/2025 4:15 AM CDT 03/02/2025 4:24 AM CDT us Cleveland Pierce MD LAB BLOOD ORDERABLES Roberta bernal Result 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 Room: [facility] ENDOSCOPY ROOM 05 Note Status: Finalized Procedure: Colonoscopy Indications: High risk colon cancer surveillance: Personalhistory of colon cancer Providers: Ashly Sparks M.D. Referring MD: Medicines: Propofol per Anesthesia Complications: No immediate complications. Estimated Blood Loss: Estimated blood loss was minimal. Estimated blood loss: none. Procedure: Pre-Anesthesia Assessment: - Prior to the procedure, a History and Physicalwas performed, and patient medications, allergies and sensitivities were reviewed. The patient'stolerance of previous anesthesia was reviewed. - The risks and benefits of the procedure and the sedation options and risks were discussed with the patient. All questions were answered and informed consent was obtained. The benefits, risks and alternatives of theprocedure and sedation were discussed and informed consentwas obtained. All questions were answered. Please referto the signed informed consent document in the medical record. The scope was passed under direct vision.The [id number] was introduced through the anusand advanced to the sigmoid colon to examine a mass.This was the intended extent. The colonoscopy wasperformed without difficulty. The patient tolerated the procedure well. The quality of the bowelpreparation was adequate. Bowel prep was administered using a split dose. Findings: A frond-like/villous partially obstructing large mass was found inthe sigmoid colon. Estimated blood loss: none. A tattoo was seen in the sigmoid colon just distal to the mass. The tattoo site appeared normal. 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 - A tattoo was seen in the sigmoid colon. Thetattoo site appeared normal. - No specimens collected. Recommendation: - Patient has a contact number available for emergencies. The signs and symptoms of potential delayed complications were discussed with thepatient. Return to normal activities tomorrow. Written discharge instructions were provided to thepatient. - Clear liquid diet. - Perform CT scan (computed tomography) of thechest, abdomen, and pelvis with contrast. Patient is to be preadmitted for contrast allergy and undergosurgical intervention tomorrow. - CEA Electronically signed by Ashly Sparks MD Ashly Sparks M.D. 07/23/2021 9:35:55 AM Number of Addenda: 0 Note Initiated On: 07/23/2021 9:14 AM us Ashly Sparks MD ENDOSCOPY PROCEDURES F inal Result from Last 3 Months or Most Recently Relevant to Health Maintenance Insurance [facility] MEDICARE ADVANTAGE [facility] Address: [address] [address] [place] [address] [facility] MEDIC[facility]AGE [facility] Address: [address] [address] [place] [address] Advance Directives For more information, please contact: [phone] * Full Code (Latest Code Status on File) Date Activated Date Inactivated Comments 03/02/2025 4:57 PM 03/06/2025 11:28 PM * Full Code Date Activated Date Inactivated Comments 07/23/2021 1:41 PM 07/28/2021 4:41 PM * Full Code Date Activated Date Inactivated Comments 07/23/2021 7:15 AM 07/23/2021 12:29 PM Care Teams [place] Senator Relationship Specialty Start Date End Date Darin Valles PA [facility] [place] [address] PCP - General Internal Medicine 05/27/21 Portillo Maciel MD [address] [facility] [id number] [place] [address] Surgeon Colon and Rectal Surgery 07/28/21 [place] [id number] [address] Photo Booth Operator Gastroenterology 07/28/21
== END 2025-04-03 09:34 | disposition home or self-care (01) ==
LOC: ANHCARD 09:35
PROVIDERS: Visit Provider Internal Medicine
DX: I10 Essential (primary) hypertension (principal)
CPT/HCPCS: 93306

== ENCOUNTER 2025-04-30 21:25 | Emergency (ER) | payer MEDICARE, MEDICAID, SELFPAY ==
--- OUTSIDE RECORDS SUMMARY | 2006-02-16 08:00 | XMS_ITS | Continuity of Care Document ---
Author Organization [facility] Address [address] [place] [address] Phone Care Team Providers Care Beverage Server Name Role Phone Desouza OD, Stephen Unavailable Unavailable Advance Directives Directive Yes / No Effective Date File Name No Information Encounters Encounter Description Practice Location Reason(s) For Visit Diagnoses Date Provider Providers Copied on Encounter [facility], [address], [place], [place], [id number], [place] tel:[phone] [facility] [place] No Information Aug-0 9-200 6 Desouza OD Stephen. [address] [place] , [address], [place], [address], [place]. tel:[phone] Family History Family Member Type Diagnosis Age At Onset No Information Payers Payer name Insurance type Covered republican ID Authorchaveza timata(s) Medicaid [facility] [id number] Social History Type Description Quantity Date Captured Comments Sex Female Smoking Status No Information Chief Complaint And Reason For Visit No Information Reason For Referral Reason For Referral No Information History Of Present Illness Encounter Date Complaint History Of Prese nt Illness No Information Functional Status Date Functional Assessmen t No Information Instructions Date Instruction Additional Infor mation No Information Assessments Type Assessment Date No Information Patient Care Teams Name Effective Dates (start - stop) Status Members No Information
[2025-04-30] VITALS (12 sets, daily range): BP systolic 118–137; BP diastolic 59–74; PULSE 68–81; RESP 12–21; TEMP 37; O2SAT 94–98
--- NOTE | ~2025-04-30 | CT_ITS ---
CT HEAD NON-CONTRAST Clinical History: seizure Comparison: None Technique: Unenhanced axial images skull base to vertex Coronal, sagittal reformats CT images acquired with automatic exposure control for dose reduction DLP: 681 mGy-cm Findings: Sulci, ventricles: Unremarkable. No intracerebral hemorrhage. No evidence acute territorial infarct. No mass effect, midline shift. Bony calvarium intact. Visualized paranasal sinuses: Clear. Mastoid air cells: Clear. IMPRESSION: 1. No acute intracranial findings. Reviewed, dictated and finalized at location R.
--- NOTE | ~2025-04-30 | XR_ITS ---
XR shoulder LT min 2V 05/01/2025 01:29 Indication: Recent fracture. Procedure: 4 views left shoulder Comparison: No prior studies for comparison. Findings: There is a displaced humeral neck fracture with developing callus formation. There is a screw transfixing the glenoid process. Acromioclavicular joint appears to be intact with mild degenerative change. Impression: 1: Healing displaced left humeral neck fracture which may be subacute or chronic with evidence of callus formation. Reviewed, dictated and finalized at location O. Impression: 1: Healing displaced left humeral neck fracture which may be subacute or chroni c with evidence of callus formation.
[2025-04-30 21:54] LABS: Hematocrit 42.5 % (37.0-47.0); Hemoglobin 14.2 g/dL (12.0-15.0); Immature Granulocyte Percent A 0.3 % (0-0.5); Lymphocytes Absolute Auto 2.30 K/mm3 (0.9-3.2); Mean Corpuscular HGB Conc 33.4 g/dl (32-36); Mean Corpuscular Hemoglobin 30.8 pg (26-34); Mean Corpuscular Volume 92.2 fl (80-100); Nucleated Red Blood Cells Absolute Auto 0.000 K/mm3 (0.0-0.012); Nucleated Red Blood Cells Perc 0.0 % (0.0-0.2); Platelet Count Result 221 k/mm3 (150-375); Red Blood Count 4.61 M/mm3 (4.2-5.4); White Blood Count 5.8 K/mm3 (4.5-10.0)
[2025-04-30 22:06] LABS: Alanine Aminotransferase 20 U/L (6-35); Albumin Level 4.0 g/dL (3.5-5.1); Alkaline Phosphatase 328 U/L (38-126); Anion Gap 10 mmol/L (4-12); Aspartate Amino Transferase 22 U/L (14-36); Bilirubin,Total 0.4 mg/dL (0.2-1.3); Blood Urea Nitrogen 11 mg/dL (7-17); Calcium 10.2 mg/dL (8.4-10.2); Carbon Dioxide 24 mmol/L (22-30); Chloride 106 mmol/L (98-107); Estimated CRCL calculation 65 ml/min; Estimated Glomerular Filt Rate > 60; Glucose 131 mg/dL (65-110); Potassium 3.4 mmol/L (3.4-5.0); Sodium 140 mmol/L (137-145); Total Protein 7.1 g/dL (6.3-8.2)
--- NOTE | 2025-04-30 22:56 | ECG_ITS ---
Test Date: 2025-04-30 23:20:30 Measurements Intervals Cook Rate: 66 P: 14 GA: 141 QRS: -25 QRSD: 153 T: 136 QT: 479 QTc: 502 Interpretive Statements SINUS RHYTHM RIGHT BUNDLE BRANCH BLOCK LEFT VENTRICULAR HYPERTROPHY AND ST-T CHANGE BASELINE ARTIFACT- I, II, III, AVR, AVL, AVF, V4-V6 ABNORMAL ECG No previous ECG available for comparison Electronically Signed On 05-01-2025 06:18:01 CDT by Dallas Allen D.O.
[2025-04-30 23:38] LABS: Add Urine Microscopic? YES; Appearance Urine Turbid (Clear); Glucose Urine UA Negative (Negative); Leukocyte Esterase Ur 2+ LEU/UL (Negative); Nitrate Urine Negative (Negative); Non Pathogenic Casts 0-2; Specific Grav Ur 1.023 (1.001-1.035)
[2025-05-01] VITALS: PULSE 69; RESP 19; O2SAT 96
--- OUTSIDE RECORDS SUMMARY | 2025-05-01 00:08 | XMS_ITS | Clinical Summary ---
Author Organization [facility] [employer] Address [address] [place] [address] Care Team Providers Care Scallop Cutter Name Role Phone Maurice Link MD Primary Care Provider [phone] Yennifer Lynna SHEAR OPERATOR-TRACK LAYER HEAD Unavailable [phone] Source Comments [facility] [employer],non-owned Affiliates and Associated Physician Practices is amultiple site organization consisting of ambulatory clinics and hospital sitesin [place], [place], [place] and [place]. This disclosure is being madepursuant to the Care Everywhere program and may not contain all information available regarding this patient. Last updated 18.[facility] [employer] Allergies No known active allergies Medications * Be aware that medications may not be up to date on this document. Alwaysverify current medications with the patient. lamoTRIgine (LAMICTAL) 200 MG tablet Take 1 (one) tablet by mouth 2 times daily 1 Active PHENobarbital (LUMINAL) 64.8 MG tablet Take 1 (one) tablet by mouth 2 times daily for 90 days 60 tablet 2 1 Active atorvastatin (Lipitor) 40 MG tablet Take [...] Dyspnea and respiratory abnormalities 06/26/2021 Seizures 06/26/2021 Encounters Date Type Department Care Team Description 04/22/2025 Patient Outreach [facility] - Care Coordination [address] [place] [phone] Karlie Colmenares Outreach Preventive Care 04/17/2025 Patient Outreach [facility] - Care Coordination [address] [place] [phone] Dedra Karlie N Outreach Preventive Care from Last 3 Months Immunizations Immunization Administration Dates Next Due INFLUENZA VACCINE, QUADR. (A FLURIA, FLUZONE QUADRIVALENT; 6MO+) (IIV4) 07/14/2021,04/26/2019,04/08/2017,2015 INFLUENZA VACCINE, QUADR. (F LUZONE; FLULAVAL; FLUARIX; AFLURIA QUADRIVALENT; 6MO+), 0.5 ML (IIV4) 03/28/2018 PNEUMOCOCCAL PPV VACCINE 04/08/2017 Social History Tobacco Use Types Packs/Day Years [...] Recorded Patient Health Questionnaire-2 Score 0 07/27/2024 [facility] [place] [facility] - Occupational Stress [...] place to sleep or slept in a half-way (including now)? 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 Gender Identity Not on file Sexual Orientation Not on file Last Filed Vital Signs Vital Sign Reading Time Taken Comments Blood Pressure 121/71 05/14/2024 12:12 PM FILTER PLANT OPERATOR Pulse 74 05/14/2024 12:12 PM FILTER PLANT OPERATOR Temperature 36.2 C (97.2 F) 05/14/2024 12:12 PM FILTER PLANT OPERATOR Respiratory Rate 20 05/14/2024 12:12 PM FILTER PLANT OPERATOR Oxygen Saturation 94% 05/14/2024 12:12 PM FILTER PLANT OPERATOR Inhaled Oxygen Concentration - - Weight 88 kg (194 lb) 07/27/2024 9:25 AM FILTER PLANT OPERATOR Height 172.7 cm (5' 8) 07/27/2024 9:25 AM FILTER PLANT OPERATOR Body Mass Index 29.5 07/27/2024 9:25 AM FILTER PLANT OPERATOR Plan of Treatment Health Maintenance Due Date Last Done Comments BONE DENSITY TESTING 1955 COLOGUARD (AGES 45-75) - COLON CA SCREENING 1955 CT COLONOGRAPHY - COLON CA SCREENING 1955 FIT - COLON CA SCREENING 1955 FLEX SIG - COLON CA SCREENING 1955 MAMMOGRAM 1955 MEDICARE AWV 12 MONTHS 1955 HEPATITIS C SCREENING 06/17/1973 DTAP/TDAP/TD VACCINES (1 - Tdap) 1974 ZOSTER VACCINE (1 of 2) 2005 Respiratory Syncytial Virus (RSV) Vaccine Pt: or over 60 yrs (1 - Risk 60-74 years 1-dose series) 2015 PNEUMOCOCCAL VACCINE 50+ (2 of 2 - PCV) 04/08/2018 04/08/2017 COVID-19 VACCINE (1 - season) 2025 INFLUENZA VACCINE (#1) 2025 [...] Progress Patient-Stated? Author Safety General No Roya English, RN Note: Expected end date: 04/13/2024 Interventions: Complete physical therapy Safe discharge Medical Devices Implanted Type Area Boat Hop Device Identifier Shelf Expiration Date Model / Serial / Lot Screw 2.7mm 2.1mm 14mm T8 Slf-Tap Lck Implanted:Qty: 2 on 04/09/2024 by Nacho Zavaleta DO at [facility] Right: Ankle Synthes [facility] [id number] / / 3.5 Mm Locking Screws Self Tapping With Start Drive Recess 85mm Implanted:Qty: 1 on 04/09/2024 by Sathish Park MD at [facility] Right: Ankle 204.885 / / Screw 3.5mm 2.9mm 14mm T15 Ft Slf-Tap Implanted:Qty: 1 on 04/09/2024 by Sathish Park MD at [facility] Right: Ankle Synthe[employer] 212.103 / / Plate 7 Hl Fib Rt Dist Lat 125mm Contr Implanted:Qty: 1 on 04/09/2024 by Sathish Park MD at [facility] Right: Ankle [employer] [id number] / / Plate 3 Hl Shrp Hk Lopro Precontr Fib Implanted:Qty: 1 on 04/09/2024 by Sathish Park MD at [facility] Right: Ankle [employer] [id number] / / Screw 2.7mm 2.1mm 16mm T8 Slf-Tap Lck Implanted:Qty: 2 on 04/09/2024 by Nacho Zavaleta DO at [facility] Right: Ankle [employer] 202.216 / / Screw 2.7mm 2.1mm 18mm T8 Slf-Tap Lck Implanted:Qty: 3 on 04/09/2024 by Nacho Zavaleta DO at [facility] Right: Ankle [employer] 202.218 / / Screw 3.5mm 6mm 14mm Ft [employer] Slf-Tap Sm Implanted:Qty: 2 on 04/09/2024 by Nacho Zavaleta DO at [facility] Right: Ankle [employer] 204.814 / / Screw 3.5mm 6mm 38mm 2.5mm Ft Slf-Tap Implanted:Qty: 1 on 04/09/2024 by Nacho Zavaleta DO at [facility] Right: Ankle [employer] 204.838 / / Screw 3.5mm 6mm 50mm Slf-Tap Sm Hex Sckt Implanted:Qty: 1 on 04/09/2024 by Nacho Zavaleta DO at [facility] Right: Ankle [employer] 204.850 / / Screw 3.5mm 6mm 55mm 2.5mm Ft Slf-Tap Implanted:Qty: 1 on 04/09/2024 by Nacho Zavaleta DO at [facility] Right: Ankle [employer] 204.855 / / Screw 3.5mm 6mm 44mm 2.5mm Ft Slf-Tap Implanted:Qty: 1 on 04/09/2024 by Nacho Zavaleta DO at [facility] Right: Ankle [employer] 204.844 / / Explanted Type Area Boat Hop Device Identifier Shelf Expiration Date Model / Serial / Lot Screw 3.5mm 6mm 95mm F[employer] Slf-Tap Sm Explanted:Qty: 1 on 04/09/2024 by Sathish Park MD at [facility] Right: Ankle Synthe[employer] [id number] / / Procedures Procedure Name Priority Date/Time Associated Diagnosis Comments RENAL FUNCTION PANEL Routine 04/11/2024 2:41 AM CDT from Last 3 Months or Most Recently Relevant to Health Maintenance Results * (ABNORMAL) RENAL FUNCTION PANEL (04/11/2024 2:41 AM CDT) BUN 9 7 - 26 mg/dL 04/11/2024 4:09 AM [facility] Creatinine 0.76 0.56 - 0.96 mg/dL 04/11/2024 4:09 AM [facility] Sodium 137 136 - 145 mmol/L 04/11/2024 4:09 AM [facility] Potassium 3.6 3.5 - 4.5 mmol/L 04/11/2024 4:09 AM [facility] Chloride 107 98 - 107 mmol/L 04/11/2024 4:09 AM [facility] CO2 23 22 - 29 mmol/L 04/11/2024 4:09 AM [facility] Glucose 98 70 - 115 mg/dL 04/11/2024 4:09 AM [facility] Albumin 2.6(L) 3.4 - 5.0 g/dL 04/11/2024 4:09 AM [facility] Calcium 9.5 8.4 - 10.2 mg/dL 04/11/2024 4:09 AM [facility] Phosphorus 2.3(L) 2.9 - 5.1 mg/dL 04/11/2024 4:[address] [facility] Anion Gap 7 6 - 16 04/11/2024 4:[address] [facility] BUN/Creatinine Ratio 12 7 - 23 04/11/2024 4:[address] [facility] Osmolality Calculated 283 275 - 295 mOsm/kg 04/11/2024 4:09 AM [facility] eGFR by CKD-EPI 85(L) >=90 mL/min/1.7 3 m2 04/11/2024 4:[address] [facility] Blood BLOOD SPECIMEN / Unknown Lab Venipuncture / Unknown 04/11/2024 2:41 AM CDT 04/11/2024 3:39 AM CDT us José Miguel Philip MD LAB - CHEMISTRY ORDERABLES F inal Result [facility] [address] [place] [address], [facility] [phone] from Last 3 Months or Most Recently Relevant to Health Maintenance Insurance [facility] MEDICARE MEDICARE Advance Directives * Full Code (Latest Code Status on File) Date Activated Date Inactivated Comments 04/06/2024 4:50 PM 04/11/2024 6:45 PM * Full Code Date Activated Date Inactivated Comments 06/26/2021 5:21 PM 07/01/2021 2:25 PM Care Teams Scallop Cutter Relationship Specialty Start Date End Date Maurice Link MD [address] [place] [phone] PCP - General Internal Medicine 07/27/24 America Ly APRN-TRACK LAYER HEAD [address] [place] [id number] PCP - Attributed-[facility] 02/08/25
--- OUTSIDE RECORDS SUMMARY | 2025-05-01 00:08 | XMS_ITS ---
Author Organization [facility] Address [address] [place] [address] Care Team Providers Care Deputy Editor In Chief Name Role Phone Maurice Link MD Primary Care Provider [phone] America Ly MECHANICAL SYSTEMS DESIGNER-COTTON FARMWORKER Unavailable [phone] Active Problems Problem Noted Date Diagnosed Date [...]
--- OUTSIDE RECORDS SUMMARY | 2025-05-01 00:08 | XMS_ITS | Data Portability ---
Author Organization [facility] Address [address] [place] [address] Assessment No assessment recorded. Plan of Treatment Reminders Order Date Submit Date Provider Last Modified By Organization Details Last Modified Time Details Appointments NEW PATIENT 30 2024 08:30A Shannan Wilde MD Not available Not available Not available Lab vitamin D, 25-hydrox y, total, serum 2023 024 [email or web address] [facility], [address] [place] [address], [facility] [address], [place], [address], 07/28/2024 11:14:52 vitamin B12 + folate, serum or blood 2023 024 [email or web address] [facility], [address] [place] [address], [address], [place], [address], 07/28/2024 11:14:52 TSH + free T4, serum 2022 023 NAHID [facility], [address] [place] [address], [address], [place], [address], 10/20/2022 17:50:03 CBC 2022 023 NAHID [facility], [address] [place], [place] [address]gil[address]to Glass, [address], [place], [address], 10/20/2022 17:50:02 lipid panel, serum 2022 023 [facility], [address] [place] [address], [address], [place], [address], 04/25/2023 08:45:17 Referral gynecolog ist referral 2021 NAHID Not available 04/15/2022 11:56:19 Procedures None recorded. Surgeries None recorded. Imaging None recorded. Medication Orders lamotrigi ne 200 mg tablet 2024 025 [facility] #[id number], [address], [place], [id number], 12/26/2024 17:28:00 phenobarb ital 60 mg tablet 2024 025 [facility] [employer] [facility] #[id number], [address], [place], [id number], 12/26/2024 17:28:03 Spiriva with [employer] r 18 mcg and inhalatio n capsules 2021 022 [email or web address] Not available 10/20/2022 15:56:22 amoxicill in 875 mg-potass ium clavulana te 125 mg tablet 2021 022 [email or web address] Not available 04/12/2022 12:25:52 naproxen 500 mg tablet 2021 022 [email or web address] Not available 10/20/2022 15:55:15 Patient TargetsNo targets recorded. Patient Instructions Encounter Date Encounter Id Patient Instructions Last Modified By Organization Details Last Modified Time 10/20/2022 [id number] thyroid nodules: care instructions [email or web address] Not available 10/20/2022 17:49:52 A healthy lifest yle: care instructions [email or web address] Not available 10/20/2022 17:49:52 epilepsy: care instructions [email or web address] Not available 10/20/2022 17:49:52 gastroesophageal reflux disease (GERD): care instructions [email or web address] Not available 10/20/2022 17:49:52 high cholesterol : care instructions Not available 10/20/2022 17:49:52 02/20/2024 [id number] heart murmur: ca re instructions [email or web address] Not available 02/20/2024 17:36:54 12/26/2024 [id number] epilepsy: care instructions [email or web address] Not available 12/26/2024 17:27:53 heart murmur: ca re instructions [email or web address] Not available 12/26/2024 17:27:53 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 for Referral 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 Referral for Fa ilure of orgasm Referring Physician: Darin Valles, Family Medicine, Encounter Date: 04/12/2022 Results Created Date Observation Date Name Description Value Unit Range Abnormal Flag Note LastModifiedBy Organization Detail LastModifiedTime 04/06/20 24 04/06/2024 Creat ine kinas e [Enzy matic activ ity/v olume ] in Serum or Plasm a creatine kinase [enzymatic activity/vol ume] in serum or plasma 1596 U/L low: 30U/Lh igh: 200U/L high Not Available Not Available 12/26/2024 05:10:10 04/06/20 24 04/06/2024 Creat ine kinas e [Enzy matic activ ity/v olume ] in Serum or Plasm a interpretati on and review of laboratory results Abnorm al Not Available Not Available 05:10:10 04/06/20 24 04/06/2024 ABO and Rh group [Type ] in Blood ABO and Rh group [type] in blood O POS Not Available Not Available 05:10:10 04/06/20 24 04/06/2024 25-hy droxy vitam in D3 [Mass /volu me] in Serum or Plasm a 25-hydroxyvi tamin D3+25-hydrox yvitamin D2 [mass/volume ] in serum or plasma 8.7 NG/mL low: 30NG/m Lhigh: 80NG/m L low The recom menda tions for 25-Hy droxy Vitam in D clini radha decis ion point s are as follo ws: Defic ient: <20.0 ng/mL Insuf ficie nt: 20.0 - 29.9 ng/mL Suffi cient : 30.0 - 100.0 ng/mL Poten tial Toxic ity: >100 ng/mL Refer ence: The Endoc rine Socie ty Clini radha Pract ice Guide lines . 2010 If the 25-Hy droxy Vitam in D resul ts are incon siten t with clini radha evide nce, it is recom ashli d that follo w-up testi ng using a metho d such as LC/MS /MS be perfo rmed to confi rm the resul t. Not Available Not Available 12/26/2024 05:10:10 04/06/2004/06/2024 25-hy droxy vitam in D3 [Mass /volu me] in Serum or Plasm a interpretati on and review of laboratory results Abnorm al Not Available Not Available 05:10:10 04/06/2004/06/2024 Creat ine kinas e [Enzy matic activ ity/v olume ] in Serum or Plasm a creatine kinase [enzymatic activity/vol ume] in serum or plasma 1758 U/L low: 30U/Lh igh: 200U/L high Not Available Not Available 12/26/2024 05:10:10 04/06/20 24 04/06/2024 Creat ine kinas e [Enzy matic activ ity/v olume ] in Serum or Plasm a interpretati on and review of laboratory results Abnorm al Not Available Not Available 05:10:10 04/06/20 24 04/06/2024 Blood type and Indir ect antib khushbu scree n panel - Blood blood group antibody screen [presence] in serum or plasma NEG Not Available Not Available 12/09 05:10:10 04/06/20 24 04/06/2024 Blood type and Indir ect antib khushbu scree n panel - Blood ABO and Rh group [type] in blood O POS Not Available Not Available 05:10:10 04/06/20 24 04/06/2024 Magne sium [Mass /volu me] in Serum or Plasm a magnesium [mass/volume ] in serum or plasma 1.8 mg/dL low: 1.6mg/ dLhigh : 2.6mg/ dL Not Available Not Available 12/26/2024 05:10:10 04/06/2004/06/2024 Magne sium [Mass /volu me] in Serum or Plasm a interpretati on and review of laboratory results Normal Not Available Not Available 12/09 05:10:10 04/06/20 24 04/06/2024 Compr ehens linette metab olic 1999 panel - Serum or Plasm a urea nitrogen [mass/volume ] in serum or plasma 15 mg/dL low: 7mg/dL high: 26mg/d L Not Available Not Available 12/26/2024 05:10:10 04/06/20 24 04/06/2024 Compr ehens linette metab olic 1999 panel - Serum or Plasm a creatinine [mass/volume ] in serum or plasma 0.68 mg/dL low: 0.56mg /dLhig h: 0.96mg /dL Not Available Not Available 12/26/2024 05:10:10 04/06/20 24 04/06/2024 Compr ehens linette metab olic 1999 panel - Serum or Plasm a sodium [moles/volum e] in serum or plasma 140 mmol/ L low: 136mmo l/Lhig h: 145mmo l/L Not Available Not Available 12/26/2024 05:10:10 04/06/20 24 04/06/2024 Compr ehens linette metab olic 1999 panel - Serum or Plasm a potassium [moles/volum e] in serum or plasma 3.7 mmol/ L low: 3.5mmo l/Lhig h: 4.5mmo l/L Not Available Not Available 12/26/2024 05:10:10 04/06/20 24 04/06/2024 Compr ehens linette metab olic 1999 panel - Serum or Plasm a chloride [moles/volum e] in serum or plasma 113 mmol/ L low: 98mmol /Lhigh : 107mmo l/L high Not Available Not Available 12/26/2024 05:10:10 04/06/20 24 04/06/2024 Compr ehens linette metab olic 1999 panel - Serum or Plasm a carbon dioxide, total [moles/volum e] in serum or plasma 22 mmol/ L low: 22mmol /Lhigh : 29mmol /L Not Available Not Available 12/26/2024 05:10:10 04/06/20 24 04/06/2024 [facility] 1999 panel - Serum or Plasm a glucose [mass/volume ] in serum or plasma 113 mg/dL low: 70mg/d Lhigh: 115mg/ dL Not Available Not Available 12/26/2024 05:10:10 04/06/20 24 04/06/2024 [facility] 1999 panel - Serum or Plasm a calcium [moles/volum e] in serum or plasma 9.3 mg/dL low: 8.4mg/ dLhigh : 10.2mg /dL Not Available Not Available 12/26/2024 05:10:10 04/06/20 24 04/06/2024 [facility] 1999 panel - Serum or Plasm a protein [mass/volume ] in serum or plasma 6.1 g/dL low: 6g/dLh igh: 8.3g/d L Not Available Not Available 12/26/2024 05:10:10 04/06/20 24 04/06/2024 [facility] 1999 panel - Serum or Plasm a albumin [mass/volume ] in serum or plasma by bromocresol green (bcg) dye binding method 3.4 g/dL low: 3.4g/d Lhigh: 5g/dL Not Available Not Available 12/26/2024 05:10:10 04/06/20 24 04/06/2024 [place] [id number] panel - Serum or Plasm a bilirubin.to steve [mass/volume ] in serum or plasma 0.8 mg/dL low: 0.2mg/ dLhigh : 1.2mg/ dL Not Available Not Available 12/26/2024 05:10:10 04/06/20 24 04/06/2024 [facility] 1999 panel - Serum or Plasm a alkaline phosphatase [enzymatic activity/vol ume] in serum or plasma 131 U/L low: 40U/Lh igh: 150U/L Not Available Not Available 12/26/2024 05:10:10 04/06/20 24 04/06/2024 [place] [id number] panel - Serum or Plasm a alanine aminotransfe rase [enzymatic activity/vol ume] in serum or plasma by no addition of P-5'-P 20 U/L low: 5U/Lhi gh: 55U/L Not Available Not Available 12/26/2024 05:10:10 04/06/20 24 04/06/2024 Compr ehens linette metab olic 1999 panel - Serum or Plasm a aspartate aminotransfe rase [enzymatic activity/vol ume] in serum or plasma 40 U/L low: 5U/Lhi gh: 34U/L high Not Available Not Available 12/26/2024 05:10:10 04/06/20 24 04/06/2024 Compr ehens linette metab olic 1999 panel - Serum or Plasm a anion gap 5 low: 6high: 16 low Not Available Not Available 12/26/2024 05:10:10 04/06/20 24 04/06/2024 Compr ehens linette metab olic 1999 panel - Serum or Plasm a urea nitrogen/cre atinine [mass ratio] in serum or plasma 22 low: 7high: 23 Not Available Not Available 12/26/2024 05:10:10 04/06/20 24 04/06/2024 Compr ehens linette metab olic 1999 panel - Serum or Plasm a osmolality calculated 292 text: 275 - 295 mOsm/k g Not Available Not Available 12/26/2024 05:10:10 04/06/20 24 04/06/2024 Compr ehens linette metab olic 2000 panel - Serum or Plasm a albumin/glob ulin ratio 1.3 low: 1.1hig h: 2.3 Not Available Not Available 12/26/2024 05:10:10 04/06/20 24 04/06/2024 Compr ehens linette metab olic 1999 panel - Serum or Plasm a glomerular filtration rate [volume rate/area] in serum, plasma or blood by creatinine-b ased formula (CKD-epi)/1. 73 sq M text: >=90 mL/min /1.73 m2 Not Available Not Available 12/26/2024 05:10:10 04/06/20 24 04/06/2024 Compr ehens linette metab olic 1999 panel - Serum or Plasm a interpretati on and review of laboratory results Abnorm al Not Available Not Available 05:10:10 04/06/20 24 04/06/2024 CBC W Auto Diffe renti al panel - Blood leukocytes [#/volume] in blood by automated count 8.3 text: 4.0 - 10.7 x10e9/ L Not Available Not Available 12/26/2024 05:10:10 04/06/20 24 04/06/2024 CBC W Auto Diffe renti al panel - Blood erythrocytes [#/volume] in blood by automated count 3.52 text: 3.90 - 5.20 x10e12 /L low Not Available Not Available 12/26/2024 05:10:10 04/06/20 24 04/06/2024 CBC W Auto Diffe renti al panel - Blood hemoglobin [mass/volume ] in blood 12.4 g/dL low: 11.9g/ dLhigh : 15.8g/ dL Not Available Not Available 12/26/2024 05:10:10 04/06/20 24 04/06/2024 CBC W Auto Diffe renti al panel - Blood hematocrit [volume fraction] of blood by automated count 34.8 % low: 34.8%h igh: 46.1% Not Available Not Available 12/26/2024 05:10:10 04/06/20 24 04/06/2024 CBC W Auto Diffe renti al panel - Blood MCV [entitic mean volume] in red blood cells by automated count 98.9 fL low: 80fLhi gh: 98fL high Not Available Not Available 12/26/2024 05:10:10 04/06/20 24 04/06/2024 CBC W Auto Diffe renti al panel - Blood MCH [entitic mass] by automated count 35.2 pg low: 26.7pg high: 33.6pg high Not Available Not Available 12/26/2024 05:10:10 04/06/20 24 04/06/2024 CBC W Auto Diffe renti al panel - Blood MCHC [entitic mass/volume] in red blood cells by automated count 35.6 g/dL low: 31.7g/ dLhigh : 36.3g/ dL Not Available Not Available 12/26/2024 05:10:10 04/06/20 24 04/06/2024 CBC W Auto Diffe renti al panel - Blood erythrocyte [distwidth] in red blood cells by automated count 13.7 % low: 11.3%h igh: 14.8% Not Available Not Available 12/26/2024 05:10:10 04/06/20 24 04/06/2024 CBC W Auto Diffe renti al panel - Blood platelets [#/volume] in blood by automated count 182 text: 150 - 420 x10e9/ L Not Available Not Available 12/26/2024 05:10:10 04/06/20 24 04/06/2024 CBC W Auto Diffe renti al panel - Blood platelet [entitic mean volume] in blood by automated count 9 fL low: 7.8fLh igh: 11.4fL Not Available Not Available 12/26/2024 05:10:10 04/06/20 24 04/06/2024 CBC W Auto Diffe renti al panel - Blood neutrophils/ leukocytes in blood by automated count 63.4 % low: 41%hig h: 74% Not Available Not Available 12/26/2024 05:10:10 04/06/20 24 04/06/2024 CBC W Auto Diffe renti al panel - Blood lymphocytes/ leukocytes in blood by automated count 24.1 % low: 17%hig h: 47% Not Available Not Available 12/26/2024 05:10:10 04/06/20 24 04/06/2024 CBC W Auto Diffe renti al panel - Blood monocytes/le ukocytes in blood by automated count 11.5 % low: 3%high : 11% high Not Available Not Available 12/26/2024 05:10:10 04/06/20 24 04/06/2024 CBC W Auto Diffe renti al panel - Blood eosinophils/ leukocytes in blood by automated count 0.2 % low: 0%high : 7% Not Available Not Available 12/26/2024 05:10:10 04/06/20 24 04/06/2024 CBC W Auto Diffe renti al panel - Blood basophils/le ukocytes in blood by automated count 0.2 % low: 0%high : 1.6% Not Available Not Available 12/26/2024 05:10:10 04/06/20 24 04/06/2024 CBC W Auto Diffe renti al panel - Blood immature granulocytes /leukocytes in blood by automated count 0.6 % low: 0%high : 1% Not Available Not Available 12/26/2024 05:10:10 04/06/20 24 04/06/2024 CBC W Auto Diffe renti al panel - Blood neutrophils [#/volume] in blood by automated count 5.28 text: 1.60 - 7.50 x10e9/ L Not Available Not Available 12/26/2024 05:10:10 04/06/20 24 04/06/2024 CBC W Auto Diffe renti al panel - Blood lymphocytes [#/volume] in blood by automated count 2.01 text: 1.00 - 4.40 x10e9/ L Not Available Not Available 12/26/2024 05:10:10 04/06/20 24 04/06/2024 CBC W Auto Diffe renti al panel - Blood monocytes [#/volume] in blood by automated count 0.96 text: 0.15 - 1.00 x10e9/ L Not Available Not Available 12/26/2024 05:10:10 04/06/20 24 04/06/2024 CBC W Auto Diffe renti al panel - Blood eosinophils [#/volume] in blood 0.02 text: 0.00 - 0.60 x10e9/ L Not Available Not Available 12/26/2024 05:10:10 04/06/20 24 04/06/2024 CBC W Auto Diffe renti al panel - Blood basophils [#/volume] in blood by automated count 0.02 text: 0.00 - 0.13 x10e9/ L Not Available Not Available 12/26/2024 05:10:10 04/06/20 24 04/06/2024 CBC W Auto Diffe renti al panel - Blood interpretati on and review of laboratory results Abnorm al Not Available Not Available 05:10:10 04/07/20 24 04/07/2024 CBC panel - Blood by Autom ated count leukocytes [#/volume] in blood by automated count 6.2 text: 4.0 - 10.7 x10e9/ L Not Available Not Available 12/26/2024 05:10:11 04/07/20 24 04/07/2024 CBC panel - Blood by Autom ated count erythrocytes [#/volume] in blood by automated count 3.2 text: 3.90 - 5.20 x10e12 /L low Not Available Not Available 12/26/2024 05:10:11 04/07/20 24 04/07/2024 CBC panel - Blood by Autom ated count hemoglobin [mass/volume ] in blood 11.3 g/dL low: 11.9g/ dLhigh : 15.8g/ dL low Not Available Not Available 12/26/2024 05:10:11 04/07/20 24 04/07/2024 CBC panel - Blood by Autom ated count hematocrit [volume fraction] of blood by automated count 32.4 % low: 34.8%h igh: 46.1% low Not Available Not Available 12/26/2024 05:10:11 04/07/20 24 04/07/2024 CBC panel - Blood by Autom ated count MCV [entitic mean volume] in red blood cells by automated count 101.3 fL low: 80fLhi gh: 98fL high Not Available Not Available 12/26/2024 05:10:11 04/07/20 24 04/07/2024 CBC panel - Blood by Autom ated count MCH [entitic mass] by automated count 35.3 pg low: 26.7pg high: 33.6pg high Not Available Not Available 12/26/2024 05:10:11 04/07/20 24 04/07/2024 CBC panel - Blood by Autom ated count MCHC [entitic mass/volume] in red blood cells by automated count 34.9 g/dL low: 31.7g/ dLhigh : 36.3g/ dL Not Available Not Available 12/26/2024 05:10:11 04/07/20 24 04/07/2024 CBC panel - Blood by Autom ated count erythrocyte [distwidth] in red blood cells by automated count 14 % low: 11.3%h igh: 14.8% Not Available Not Available 12/26/2024 05:10:11 04/07/20 24 04/07/2024 CBC panel - Blood by Autom ated count platelets [#/volume] in blood by automated count 155 text: 150 - 420 x10e9/ L Not Available Not Available 12/26/2024 05:10:11 04/07/20 24 04/07/2024 CBC panel - Blood by Autom ated count platelet [entitic mean volume] in blood by automated count 9.7 fL low: 7.8fLh igh: 11.4fL Not Available Not Available 12/26/2024 05:10:11 04/07/20 24 04/07/2024 CBC panel - Blood by Autom ated count interpretati on and review of laboratory results Abnorm al Not Available Not Available 05:10:11 04/07/20 24 04/07/2024 Renal funct ion 1999 panel - Serum or Plasm a urea nitrogen [mass/volume ] in serum or plasma 11 mg/dL low: 7mg/dL high: 26mg/d L Not Available Not Available 12/26/2024 05:10:11 04/07/20 24 04/07/2024 Renal funct ion 1999 panel - Serum or Plasm a creatinine [mass/volume ] in serum or plasma 0.66 mg/dL low: 0.56mg /dLhig h: 0.96mg /dL Not Available Not Available 12/26/2024 05:10:11 04/07/20 24 04/07/2024 Renal funct ion 1999 panel - Serum or Plasm a sodium [moles/volum e] in serum or plasma 137 mmol/ L low: 136mmo l/Lhig h: 145mmo l/L Not Available Not Available 12/26/2024 05:10:11 04/07/20 24 04/07/2024 Renal funct ion 1999 panel - Serum or Plasm a potassium [moles/volum e] in serum or plasma 4.1 mmol/ L low: 3.5mmo l/Lhig h: 4.5mmo l/L Not Available Not Available 12/26/2024 05:10:11 04/07/20 24 04/07/2024 Renal funct ion 1999 panel - Serum or Plasm a chloride [moles/volum e] in serum or plasma 110 mmol/ L low: 98mmol /Lhigh : 107mmo l/L high Not Available Not Available 12/26/2024 05:10:11 04/07/20 24 04/07/2024 Renal funct ion 1999 panel - Serum or Plasm a carbon dioxide, total [moles/volum e] in serum or plasma 23 mmol/ L low: 22mmol /Lhigh : 29mmol /L Not Available Not Available 12/26/2024 05:10:11 04/07/20 24 04/07/2024 Renal funct ion 1999 panel - Serum or Plasm a glucose [mass/volume ] in serum or plasma 78 mg/dL low: 70mg/d Lhigh: 115mg/ dL Not Available Not Available 12/26/2024 05:10:11 04/07/20 24 04/07/2024 Renal funct ion 1999 panel - Serum or Plasm a albumin [mass/volume ] in serum or plasma by bromocresol green (bcg) dye binding method 2.9 g/dL low: 3.4g/d Lhigh: 5g/dL low Not Available Not Available 12/26/2024 05:10:11 04/07/20 24 04/07/2024 Renal funct ion 1999 panel - Serum or Plasm a calcium [moles/volum e] in serum or plasma 9.2 mg/dL low: 8.4mg/ dLhigh : 10.2mg /dL Not Available Not Available 12/26/2024 05:10:11 04/07/20 24 04/07/2024 Renal funct ion 1999 panel - Serum or Plasm a phosphate [mass/volume ] in serum or plasma 1.8 mg/dL low: 2.9mg/ dLhigh : 5.1mg/ dL low Not Available Not Available 12/26/2024 05:10:11 04/07/20 24 04/07/2024 Renal funct ion 1999 panel - Serum or Plasm a anion gap 4 low: 6high: 16 low Not Available Not Available 12/26/2024 05:10:11 04/07/20 24 04/07/2024 Renal funct ion 1999 panel - Serum or Plasm a urea nitrogen/cre atinine [mass ratio] in serum or plasma 17 low: 7high: 23 Not Available Not Available 12/26/2024 05:10:11 04/07/20 24 04/07/2024 Renal funct ion 1999 panel - Serum or Plasm a osmolality calculated 282 text: 275 - 295 mOsm/k g Not Available Not Available 12/26/2024 05:10:11 04/07/20 24 04/07/2024 Renal funct ion 1999 panel - Serum or Plasm a glomerular filtration rate [volume rate/area] in serum, plasma or blood by creatinine-b ased formula (CKD-epi)/1. 73 sq M text: >=90 mL/min /1.73 m2 Not Available Not Available 12/26/2024 05:10:11 04/07/20 24 04/07/2024 Renal funct ion 1999 panel - Serum or Plasm a interpretati on and review of laboratory results Abnorm al Not Available Not Available 05:10:11 04/07/20 24 04/07/2024 Creat ine kinas e [Enzy matic activ ity/v olume ] in Serum or Plasm a creatine kinase [enzymatic activity/vol ume] in serum or plasma 1046 U/L low: 30U/Lh igh: 200U/L high Not Available Not Available 12/26/2024 05:10:10 04/07/20 24 04/07/2024 Creat ine kinas e [Enzy matic activ ity/v olume ] in Serum or Plasm a interpretati on and review of laboratory results Abnorm al Not Available Not Available 05:10:10 04/08/20 24 04/09/2024 Bacte kenia ident ified in Urine by Cultu re bacteria identified in urine by culture 100-1, 000 CFU/mL urogen ital sakshi Not Available Not Available 05:10:11 04/08/20 24 04/08/2024 Renal funct ion 1999 panel - Serum or Plasm a urea nitrogen [mass/volume ] in serum or plasma 8 mg/dL low: 7mg/dL high: 26mg/d L Not Available Not Available 12/26/2024 05:10:11 04/08/20 24 04/08/2024 Renal funct ion 1999 panel - Serum or Plasm a creatinine [mass/volume ] in serum or plasma 0.66 mg/dL low: 0.56mg /dLhig h: 0.96mg /dL Not Available Not Available 12/26/2024 05:10:11 04/08/20 24 04/08/2024 Renal funct ion 1999 panel - Serum or Plasm a sodium [moles/volum e] in serum or plasma 134 mmol/ L low: 136mmo l/Lhig h: 145mmo l/L low Not Available Not Available 12/26/2024 05:10:11 04/08/20 24 04/08/2024 Renal funct ion 1999 panel - Serum or Plasm a potassium [moles/volum e] in serum or plasma 4.2 mmol/ L low: 3.5mmo l/Lhig h: 4.5mmo l/L Not Available Not Available 12/26/2024 05:10:11 04/08/20 24 04/08/2024 Renal funct ion 1999 panel - Serum or Plasm a chloride [moles/volum e] in serum or plasma 109 mmol/ L low: 98mmol /Lhigh : 107mmo l/L high Not Available Not Available 12/26/2024 05:10:11 04/08/20 24 04/08/2024 Renal funct ion 1999 panel - Serum or Plasm a carbon dioxide, total [moles/volum e] in serum or plasma 20 mmol/ L low: 22mmol /Lhigh : 29mmol /L low Not Available Not Available 12/26/2024 05:10:11 04/08/20 24 04/08/2024 Renal funct ion 1999 panel - Serum or Plasm a glucose [mass/volume ] in serum or plasma 94 mg/dL low: 70mg/d Lhigh: 115mg/ dL Not Available Not Available 12/26/2024 05:10:11 04/08/20 24 04/08/2024 Renal funct ion 1999 panel - Serum or Plasm a albumin [mass/volume ] in serum or plasma by bromocresol green (bcg) dye binding method 2.9 g/dL low: 3.4g/d Lhigh: 5g/dL low Not Available Not Available 12/26/2024 05:10:11 04/08/20 24 04/08/2024 Renal funct ion 1999 panel - Serum or Plasm a calcium [moles/volum e] in serum or plasma 9.1 mg/dL low: 8.4mg/ dLhigh : 10.2mg /dL Not Available Not Available 12/26/2024 05:10:11 04/08/20 24 04/08/2024 Renal funct ion 1999 panel - Serum or Plasm a phosphate [mass/volume ] in serum or plasma 2 mg/dL low: 2.9mg/ dLhigh : 5.1mg/ dL low Not Available Not Available 12/26/2024 05:10:11 04/08/20 24 04/08/2024 Renal funct ion 1999 panel - Serum or Plasm a anion gap 5 low: 6high: 16 low Not Available Not Available 12/26/2024 05:10:11 04/08/20 24 04/08/2024 Renal funct ion 2000 panel - Serum or Plasm a urea nitrogen/cre atinine [mass ratio] in serum or plasma 12 low: 7high: 23 Not Available Not Available 12/26/2024 05:10:11 04/08/20 24 04/08/2024 Renal funct ion 1999 panel - Serum or Plasm a osmolality calculated 276 text: 275 - 295 mOsm/k g Not Available Not Available 12/26/2024 05:10:11 04/08/20 24 04/08/2024 Renal funct ion 2000 panel - Serum or Plasm a glomerular filtration rate [volume rate/area] in serum, plasma or blood by creatinine-b ased formula (CKD-epi)/1. 73 sq M text: >=90 mL/min /1.73 m2 Not Available Not Available 12/26/2024 05:10:11 04/08/20 24 04/08/2024 Renal funct ion 1999 panel - Serum or Plasm a interpretati on and review of laboratory results Abnorm al Not Available Not Available 05:10:11 04/08/20 24 04/08/2024 Magne sium [Mass /volu me] in Serum or Plasm a magnesium [mass/volume ] in serum or plasma 1.8 mg/dL low: 1.6mg/ dLhigh : 2.6mg/ dL Not Available Not Available 12/26/2024 05:10:11 04/08/20 24 04/08/2024 Magne sium [Mass /volu me] in Serum or Plasm a interpretati on and review of laboratory results Normal Not Available Not Available 12/09 05:10:11 04/08/20 24 04/08/2024 Creat ine kinas e [Enzy matic activ ity/v olume ] in Serum or Plasm a creatine kinase [enzymatic activity/vol ume] in serum or plasma 642 U/L low: 30U/Lh igh: 200U/L high Not Available Not Available 12/26/2024 05:10:11 04/08/20 24 04/08/2024 Creat ine kinas e [Enzy matic activ ity/v olume ] in Serum or Plasm a interpretati on and review of laboratory results Abnorm al Not Available Not Available 05:10:11 04/08/20 24 04/08/2024 Urina lysis panel - Urine by Autom ated color UA Yellow text: straw, yellow Not Available Not Available 12/26/2024 05:10:11 04/08/20 24 04/08/2024 Urina lysis panel - Urine by Autom ated clarity UA Clear text: clear Not Available Not Available 12/26/2024 05:10:11 04/08/20 24 04/08/2024 Urina lysis panel - Urine by Autom ated specific gravity UA 1.013 low: 1.005h igh: 1.03 Not Available Not Available 12/26/2024 05:10:11 04/08/20 24 04/08/2024 Urina lysis panel - Urine by Autom ated pH UA 6 pH low: 5pHhig h: 8pH Not Available Not Available 12/26/2024 05:10:11 04/08/20 24 04/08/2024 Urina lysis panel - Urine by Autom ated protein UA Negati ve text: negati ve Not Available Not Available 12/26/2024 05:10:11 04/08/20 24 04/08/2024 Urina lysis panel - Urine by Autom ated glucose UA Negati ve text: negati ve Not Available Not Available 12/26/2024 05:10:11 04/08/20 24 04/08/2024 Urina lysis panel - Urine by Autom ated ketone UA Trace text: negati ve abnormal Not Available Not Available 12/26/2024 05:10:11 04/08/20 24 04/08/2024 Urina lysis panel - Urine by Autom ated bilirubin UA Negati ve text: negati ve Not Available Not Available 12/26/2024 05:10:11 04/08/20 24 04/08/2024 Urina lysis panel - Urine by Autom ated blood UA 1+ text: negati ve abnormal Not Available Not Available 12/26/2024 05:10:11 04/08/20 24 04/08/2024 Urina lysis panel - Urine by Autom ated nitrite UA Negati ve text: negati ve Not Available Not Available 12/26/2024 05:10:11 04/08/20 24 04/08/2024 Urina lysis panel - Urine by Autom ated leukocyte esterase 1+ text: negati ve abnormal Not Available Not Available 12/26/2024 05:10:11 04/08/20 24 04/08/2024 Urina lysis panel - Urine by Autom ated urobilinogen UA Negati ve text: negati ve mg/dL Not Available Not Available 12/26/2024 05:10:11 04/08/20 24 04/08/2024 Urina lysis panel - Urine by Autom ated RBC UA 3-5 text: none seen, 0-2, 3-5 /hpf Not Available Not Available 12/26/2024 05:10:11 04/08/20 24 04/08/2024 Urina lysis panel - Urine by Autom ated WBC UA 21-50 text: none seen, 0-5 /hpf abnormal Not Available Not Available 12/26/2024 05:10:11 04/08/20 24 04/08/2024 Urina lysis panel - Urine by Autom ated squamous epithelial cells UA 0-2 text: none seen, 0-2, 3-5 /hpf Not Available Not Available 12/26/2024 05:10:11 04/08/2004/08/2024 Urina lysis panel - Urine by Autom ated mucus UA 1+ text: /lpf Not Available Not Available 12/26/2024 05:10:11 04/08/20 24 04/08/2024 Urina lysis panel - Urine by Autom ated Unknown Analyte Not Available Not Available 12/09 05:10:11 04/08/20 24 04/08/2024 Urina lysis panel - Urine by Autom ated interpretati on and review of laboratory results Abnorm al Not Available Not Available 05:10:11 04/09/20 24 04/09/2024 CBC panel - Blood by Autom ated count leukocytes [#/volume] in blood by automated count 4.5 text: 4.0 - 10.7 x10e9/ L Not Available Not Available 12/26/2024 05:10:11 04/09/20 24 04/09/2024 CBC panel - Blood by Autom ated count erythrocytes [#/volume] in blood by automated count 2.98 text: 3.90 - 5.20 x10e12 /L low Not Available Not Available 12/26/2024 05:10:11 04/09/20 24 04/09/2024 CBC panel - Blood by Autom ated count hemoglobin [mass/volume ] in blood 10.4 g/dL low: 11.9g/ dLhigh : 15.8g/ dL low Not Available Not Available 12/26/2024 05:10:11 04/09/20 24 04/09/2024 CBC panel - Blood by Autom ated count hematocrit [volume fraction] of blood by automated count 30.1 % low: 34.8%h igh: 46.1% low Not Available Not Available 12/26/2024 05:10:11 04/09/2004/09/2024 CBC panel - Blood by Autom ated count MCV [entitic mean volume] in red blood cells by automated count 101 fL low: 80fLhi gh: 98fL high Not Available Not Available 12/26/2024 05:10:11 04/09/2004/09/2024 CBC panel - Blood by Autom ated count MCH [entitic mass] by automated count 34.9 pg low: 26.7pg high: 33.6pg high Not Available Not Available 12/26/2024 05:10:11 04/09/2004/09/2024 CBC panel - Blood by Autom ated count MCHC [entitic mass/volume] in red blood cells by automated count 34.6 g/dL low: 31.7g/ dLhigh : 36.3g/ dL Not Available Not Available 12/26/2024 05:10:11 04/09/20 24 04/09/2024 CBC panel - Blood by Autom ated count erythrocyte [distwidth] in red blood cells by automated count 14.4 % low: 11.3%h igh: 14.8% Not Available Not Available 12/26/2024 05:10:11 04/09/20 24 04/09/2024 CBC panel - Blood by Autom ated count platelets [#/volume] in blood by automated count 133 text: 150 - 420 x10e9/ L low Not Available Not Available 12/26/2024 05:10:11 04/09/20 24 04/09/2024 CBC panel - Blood by Autom ated count platelet [entitic mean volume] in blood by automated count 9.6 fL low: 7.8fLh igh: 11.4fL Not Available Not Available 12/26/2024 05:10:11 04/09/20 24 04/09/2024 CBC panel - Blood by Autom ated count interpretati on and review of laboratory results Abnorm al Not Available Not Available 05:10:11 04/09/20 24 04/09/2024 Renal funct ion 1999 panel - Serum or Plasm a urea nitrogen [mass/volume ] in serum or plasma 7 mg/dL low: 7mg/dL high: 26mg/d L Not Available Not Available 12/26/2024 05:10:11 04/09/20 24 04/09/2024 Renal funct ion 1999 panel - Serum or Plasm a creatinine [mass/volume ] in serum or plasma 0.7 mg/dL low: 0.56mg /dLhig h: 0.96mg /dL Not Available Not Available 12/26/2024 05:10:11 04/09/20 24 04/09/2024 Renal funct ion 1999 panel - Serum or Plasm a sodium [moles/volum e] in serum or plasma 139 mmol/ L low: 136mmo l/Lhig h: 145mmo l/L Not Available Not Available 12/26/2024 05:10:11 04/09/20 24 04/09/2024 Renal funct ion 1999 panel - Serum or Plasm a potassium [moles/volum e] in serum or plasma 3.8 mmol/ L low: 3.5mmo l/Lhig h: 4.5mmo l/L Not Available Not Available 12/26/2024 05:10:11 04/09/20 24 04/09/2024 Renal funct ion 1999 panel - Serum or Plasm a chloride [moles/volum e] in serum or plasma 109 mmol/ L low: 98mmol /Lhigh : 107mmo l/L high Not Available Not Available 12/26/2024 05:10:11 04/09/20 24 04/09/2024 Renal funct ion 1999 panel - Serum or Plasm a carbon dioxide, total [moles/volum e] in serum or plasma 23 mmol/ L low: 22mmol /Lhigh : 29mmol /L Not Available Not Available 12/26/2024 05:10:11 04/09/20 24 04/09/2024 Renal funct ion 1999 panel - Serum or Plasm a glucose [mass/volume ] in serum or plasma 96 mg/dL low: 70mg/d Lhigh: 115mg/ dL Not Available Not Available 12/26/2024 05:10:11 04/09/20 24 04/09/2024 Renal funct ion 1999 panel - Serum or Plasm a albumin [mass/volume ] in serum or plasma by bromocresol green (bcg) dye binding method 2.7 g/dL low: 3.4g/d Lhigh: 5g/dL low Not Available Not Available 12/26/2024 05:10:11 04/09/20 24 04/09/2024 Renal funct ion 1999 panel - Serum or Plasm a calcium [moles/volum e] in serum or plasma 9.3 mg/dL low: 8.4mg/ dLhigh : 10.2mg /dL Not Available Not Available 12/26/2024 05:10:11 04/09/20 24 04/09/2024 Renal funct ion 1999 panel - Serum or Plasm a phosphate [mass/volume ] in serum or plasma 2.7 mg/dL low: 2.9mg/ dLhigh : 5.1mg/ dL low Not Available Not Available 12/26/2024 05:10:11 04/09/20 24 04/09/2024 Renal funct ion 1999 panel - Serum or Plasm a anion gap 7 low: 6high: 16 Not Available Not Available 12/26/2024 05:10:11 04/09/2004/09/2024 Renal funct ion 1999 panel - Serum or Plasm a urea nitrogen/cre atinine [mass ratio] in serum or plasma 10 low: 7high: 23 Not Available Not Available 12/26/2024 05:10:11 04/09/20 24 04/09/2024 Renal funct ion 1999 panel - Serum or Plasm a osmolality calculated 286 text: 275 - 295 mOsm/k g Not Available Not Available 12/26/2024 05:10:11 04/09/2004/09/2024 Renal funct ion 2000 panel - Serum or Plasm a glomerular filtration rate [volume rate/area] in serum, plasma or blood by creatinine-b ased formula (CKD-epi)/1. 73 sq M text: >=90 mL/min /1.73 m2 Not Available Not Available 12/26/2024 05:10:11 04/09/20 24 04/09/2024 Renal funct ion 2000 panel - Serum or Plasm a interpretati on and review of laboratory results Abnorm al Not Available Not Available 05:10:11 04/10/20 24 04/10/2024 CBC panel - Blood by Autom ated count leukocytes [#/volume] in blood by automated count 5.7 text: 4.0 - 10.7 x10e9/ L Not Available Not Available 12/26/2024 05:10:11 04/10/2004/10/2024 CBC panel - Blood by Autom ated count erythrocytes [#/volume] in blood by automated count 3.08 text: 3.90 - 5.20 x10e12 /L low Not Available Not Available 12/26/2024 05:10:11 04/10/2004/10/2024 CBC panel - Blood by Autom ated count hemoglobin [mass/volume ] in blood 10.8 g/dL low: 11.9g/ dLhigh : 15.8g/ dL low Not Available Not Available 12/26/2024 05:10:11 04/10/20 24 04/10/2024 CBC panel - Blood by Autom ated count hematocrit [volume fraction] of blood by automated count 31.6 % low: 34.8%h igh: 46.1% low Not Available Not Available 12/26/2024 05:10:11 04/10/20 24 04/10/2024 CBC panel - Blood by Autom ated count MCV [entitic mean volume] in red blood cells by automated count 102.6 fL low: 80fLhi gh: 98fL high Not Available Not Available 12/26/2024 05:10:11 04/10/20 24 04/10/2024 CBC panel - Blood by Autom ated count MCH [entitic mass] by automated count 35.1 pg low: 26.7pg high: 33.6pg high Not Available Not Available 12/26/2024 05:10:11 04/10/20 24 04/10/2024 CBC panel - Blood by Autom ated count MCHC [entitic mass/volume] in red blood cells by automated count 34.2 g/dL low: 31.7g/ dLhigh : 36.3g/ dL Not Available Not Available 12/26/2024 05:10:11 04/10/20 24 04/10/2024 CBC panel - Blood by Autom ated count erythrocyte [distwidth] in red blood cells by automated count 14.6 % low: 11.3%h igh: 14.8% Not Available Not Available 12/26/2024 05:10:11 04/10/20 24 04/10/2024 CBC panel - Blood by Autom ated count platelets [#/volume] in blood by automated count 156 text: 150 - 420 x10e9/ L Not Available Not Available 12/26/2024 05:10:11 04/10/20 24 04/10/2024 CBC panel - Blood by Autom ated count platelet [entitic mean volume] in blood by automated count 9.7 fL low: 7.8fLh igh: 11.4fL Not Available Not Available 12/26/2024 05:10:11 04/10/2004/10/2024 CBC panel - Blood by Autom ated count interpretati on and review of laboratory results Abnorm al Not Available Not Available 05:10:11 04/10/20 24 04/10/2024 Renal funct ion 1999 panel - Serum or Plasm a urea nitrogen [mass/volume ] in serum or plasma 9 mg/dL low: 7mg/dL high: 26mg/d L Not Available Not Available 12/26/2024 05:10:11 04/10/20 24 04/10/2024 Renal funct ion 1999 panel - Serum or Plasm a creatinine [mass/volume ] in serum or plasma 0.72 mg/dL low: 0.56mg /dLhig h: 0.96mg /dL Not Available Not Available 12/26/2024 05:10:11 04/10/20 24 04/10/2024 Renal funct ion 1999 panel - Serum or Plasm a sodium [moles/volum e] in serum or plasma 137 mmol/ L low: 136mmo l/Lhig h: 145mmo l/L Not Available Not Available 12/26/2024 05:10:11 04/10/2004/10/2024 Renal funct ion 1999 panel - Serum or Plasm a potassium [moles/volum e] in serum or plasma 4 mmol/ L low: 3.5mmo l/Lhig h: 4.5mmo l/L Not Available Not Available 12/26/2024 05:10:11 04/10/20 24 04/10/2024 Renal funct ion 1999 panel - Serum or Plasm a chloride [moles/volum e] in serum or plasma 105 mmol/ L low: 98mmol /Lhigh : 107mmo l/L Not Available Not Available 12/26/2024 05:10:11 04/10/2004/10/2024 Renal funct ion 1999 panel - Serum or Plasm a carbon dioxide, total [moles/volum e] in serum or plasma 24 mmol/ L low: 22mmol /Lhigh : 29mmol /L Not Available Not Available 12/26/2024 05:10:11 04/10/20 24 04/10/2024 Renal funct ion 1999 panel - Serum or Plasm a glucose [mass/volume ] in serum or plasma 116 mg/dL low: 70mg/d Lhigh: 115mg/ dL high Not Available Not Available 12/26/2024 05:10:11 04/10/20 24 04/10/2024 Renal funct ion 1999 panel - Serum or Plasm a albumin [mass/volume ] in serum or plasma by bromocresol green (bcg) dye binding method 2.7 g/dL low: 3.4g/d Lhigh: 5g/dL low Not Available Not Available 12/26/2024 05:10:11 04/10/20 24 04/10/2024 Renal funct ion 1999 panel - Serum or Plasm a calcium [moles/volum e] in serum or plasma 9 mg/dL low: 8.4mg/ dLhigh : 10.2mg /dL Not Available Not Available 12/26/2024 05:10:11 04/10/20 24 04/10/2024 Renal funct ion 1999 panel - Serum or Plasm a phosphate [mass/volume ] in serum or plasma 2.2 mg/dL low: 2.9mg/ dLhigh : 5.1mg/ dL low Not Available Not Available 12/26/2024 05:10:11 04/10/20 24 04/10/2024 Renal funct ion 2000 panel - Serum or Plasm a anion gap 8 low: 6high: 16 Not Available Not Available 12/26/2024 05:10:11 04/10/20 24 04/10/2024 Renal funct ion 2000 panel - Serum or Plasm a urea nitrogen/cre atinine [mass ratio] in serum or plasma 13 low: 7high: 23 Not Available Not Available 12/26/2024 05:10:11 04/10/20 24 04/10/2024 Renal funct ion 2000 panel - Serum or Plasm a osmolality calculated 284 text: 275 - 295 mOsm/k g Not Available Not Available 12/26/2024 05:10:11 04/10/20 24 04/10/2024 Renal funct ion 2000 panel - Serum or Plasm a glomerular filtration rate [volume rate/area] in serum, plasma or blood by creatinine-b ased formula (CKD-epi)/1. 73 sq M text: >=90 mL/min /1.73 m2 Not Available Not Available 12/26/2024 05:10:11 04/10/20 24 04/10/2024 Renal funct ion 2000 panel - Serum or Plasm a interpretati on and review of laboratory results Abnorm al Not Available Not Available 05:10:11 04/11/20 24 04/11/2024 CBC panel - Blood by Autom ated count leukocytes [#/volume] in blood by automated count 5.1 text: 4.0 - 10.7 x10e9/ L Not Available Not Available 12/26/2024 05:10:11 04/11/20 24 04/11/2024 CBC panel - Blood by Autom ated count erythrocytes [#/volume] in blood by automated count 3.05 text: 3.90 - 5.20 x10e12 /L low Not Available Not Available 12/26/2024 05:10:11 04/11/20 24 04/11/2024 CBC panel - Blood by Autom ated count hemoglobin [mass/volume ] in blood 10.4 g/dL low: 11.9g/ dLhigh : 15.8g/ dL low Not Available Not Available 12/26/2024 05:10:11 04/11/20 24 04/11/2024 CBC panel - Blood by Autom ated count hematocrit [volume fraction] of blood by automated count 31.8 % low: 34.8%h igh: 46.1% low Not Available Not Available 12/26/2024 05:10:11 04/11/20 24 04/11/2024 CBC panel - Blood by Autom ated count MCV [entitic mean volume] in red blood cells by automated count 104.3 fL low: 80fLhi gh: 98fL high Not Available Not Available 12/26/2024 05:10:11 04/11/20 24 04/11/2024 CBC panel - Blood by Autom ated count MCH [entitic mass] by automated count 34.1 pg low: 26.7pg high: 33.6pg high Not Available Not Available 12/26/2024 05:10:11 04/11/20 24 04/11/2024 CBC panel - Blood by Autom ated count MCHC [entitic mass/volume] in red blood cells by automated count 32.7 g/dL low: 31.7g/ dLhigh : 36.3g/ dL Not Available Not Available 12/26/2024 05:10:11 04/11/20 24 04/11/2024 CBC panel - Blood by Autom ated count erythrocyte [distwidth] in red blood cells by automated count 14.8 % low: 11.3%h igh: 14.8% Not Available Not Available 12/26/2024 05:10:11 04/11/20 24 04/11/2024 CBC panel - Blood by Autom ated count platelets [#/volume] in blood by automated count 163 text: 150 - 420 x10e9/ L Not Available Not Available 12/26/2024 05:10:11 04/11/20 24 04/11/2024 CBC panel - Blood by Autom ated count platelet [entitic mean volume] in blood by automated count 9.5 fL low: 7.8fLh igh: 11.4fL Not Available Not Available 12/26/2024 05:10:11 04/11/20 24 04/11/2024 CBC panel - Blood by Autom ated count interpretati on and review of laboratory results Abnorm al Not Available Not Available 05:10:11 04/11/2004/11/2024 Renal funct ion 1999 panel - Serum or Plasm a urea nitrogen [mass/volume ] in serum or plasma 9 mg/dL low: 7mg/dL high: 26mg/d L Not Available Not Available 12/26/2024 05:00:40 04/11/20 24 04/11/2024 Renal funct ion 1999 panel - Serum or Plasm a creatinine [mass/volume ] in serum or plasma 0.76 mg/dL low: 0.56mg /dLhig h: 0.96mg /dL Not Available Not Available 12/26/2024 05:00:40 04/11/2004/11/2024 Renal funct ion 1999 panel - Serum or Plasm a sodium [moles/volum e] in serum or plasma 137 mmol/ L low: 136mmo l/Lhig h: 145mmo l/L Not Available Not Available 12/26/2024 05:00:40 04/11/2004/11/2024 Renal funct ion 1999 panel - Serum or Plasm a potassium [moles/volum e] in serum or plasma 3.6 mmol/ L low: 3.5mmo l/Lhig h: 4.5mmo l/L Not Available Not Available 12/26/2024 05:00:40 04/11/2004/11/2024 Renal funct ion 1999 panel - Serum or Plasm a chloride [moles/volum e] in serum or plasma 107 mmol/ L low: 98mmol /Lhigh : 107mmo l/L Not Available Not Available 12/26/2024 05:00:40 04/11/20 24 04/11/2024 Renal funct ion 1999 panel - Serum or Plasm a carbon dioxide, total [moles/volum e] in serum or plasma 23 mmol/ L low: 22mmol /Lhigh : 29mmol /L Not Available Not Available 12/26/2024 05:00:40 04/11/20 24 04/11/2024 Renal funct ion 1999 panel - Serum or Plasm a glucose [mass/volume ] in serum or plasma 98 mg/dL low: 70mg/d Lhigh: 115mg/ dL Not Available Not Available 12/26/2024 05:00:40 04/11/20 24 04/11/2024 Renal funct ion 1999 panel - Serum or Plasm a albumin [mass/volume ] in serum or plasma by bromocresol green (bcg) dye binding method 2.6 g/dL low: 3.4g/d Lhigh: 5g/dL low Not Available Not Available 12/26/2024 05:00:40 04/11/20 24 04/11/2024 Renal funct ion 1999 panel - Serum or Plasm a calcium [moles/volum e] in serum or plasma 9.5 mg/dL low: 8.4mg/ dLhigh : 10.2mg /dL Not Available Not Available 12/26/2024 05:00:40 04/11/2004/11/2024 Renal funct ion 1999 panel - Serum or Plasm a phosphate [mass/volume ] in serum or plasma 2.3 mg/dL low: 2.9mg/ dLhigh : 5.1mg/ dL low Not Available Not Available 12/26/2024 05:00:40 04/11/20 24 04/11/2024 Renal funct ion 1999 panel - Serum or Plasm a anion gap 7 low: 6high: 16 Not Available Not Available 12/26/2024 05:00:40 04/11/2004/11/2024 Renal funct ion 2000 panel - Serum or Plasm a urea nitrogen/cre atinine [mass ratio] in serum or plasma 12 low: 7high: 23 Not Available Not Available 12/26/2024 05:00:40 04/11/20 24 04/11/2024 Renal funct ion 1999 panel - Serum or Plasm a osmolality calculated 283 text: 275 - 295 mOsm/k g Not Available Not Available 12/26/2024 05:00:40 04/11/20 24 04/11/2024 Renal funct ion 2000 panel - Serum or Plasm a glomerular filtration rate [volume rate/area] in serum, plasma or blood by creatinine-b ased formula (CKD-epi)/1. 73 sq M 85 text: >=90 mL/min /1.73 m2 low Not Available Not Available 12/26/2024 05:00:40 04/11/20 24 04/11/2024 Renal funct ion 2000 panel - Serum or Plasm a interpretati on and review of laboratory results Abnorm al Not Available Not Available 05:00:40 06/03/20 22 06/03/2022 XR, chest No observ ation record ed. [facility] [address] [place], [address], 06/04/2022 15:23:16 10/12/19 23 10/10/2022 CT, head, w/o contr ast No observ ation record ed. [address] [place], [address], 10/11/2022 12:42:40 10/12/19 23 10/10/2022 CT, head, w/o contr ast No observ ation record ed. [address] [place], [address], 11/10/2022 05:21:41 10/12/19 23 10/10/2022 CT, head, w/o contr ast No observ ation record ed. [address] [place], [address], 10/11/2022 12:42:55 10/12/1910/11/2022 XR, knee No observ ation record ed. [address] [place], [address], 10/11/2022 12:43:12 10/12/19 23 10/11/2022 XR, hip + pelvi s, unila teral , 2 or 3 view No observ ation record ed. [address] [place], [address], 10/11/2022 12:43:39 Result Notes None recorded. Problems Name Problem SNOMED Code Status Onset Date Resolution Date Notes Provider Name and Address Organization Details Recorded Time Seizure disorder 286636841 Active Not Available [facility] 00:45:36 Allergic rhinitis 84665103 Active Not Available [facility] 00:45:36 Folliculi tis 20898110 Active Not Available [facility] 1 00:45:36 Candidias is 97518654 Active Not Available [facility] 1 00:45:36 Disorder of vitamin B12 399874391 Active Not Available [facility] Asthma 895126194 Active Not Available [facility] 1 00:45:36 Vitamin D deficienc y 65019186 Active Not Available [facility] 1 00:45:36 Hyperlipi demia 12301069 Active Not Available [facility] 1 00:45:36 Constipat ion 65747231 Active Not Available [facility] 1 00:45:36 Labyrinth itis 64367065 Active Not Available [facility] 00:45:36 Low back pain 007164106 Active Not Available [facility] 00:45:36 Pneumonia 895343732 Active Not Available [facility] 00:45:36 Gastroeso phageal reflux disease 845790393 Active Not Available [facility] 1 00:45:36 Pediculos is capitis 36577185 Active 2015 Not Available [facility] 1 00:45:36 Administr ation of influenza vaccine Active 2015 Not Available [facility] 1 00:45:36 Acute sinusitis 77780086 Active 2016 Not Available [facility] 1 00:45:36 Screening for malignant neoplasm of colon Active 2016 Not Available [facility] 1 00:45:36 Administr ation of pneumococ radha vaccine Active 2016 Not Available [facility] 1 00:45:36 Normal grief reaction 413307137 Active 2016 Not Available [facility] 1 00:45:36 Low back strain 597597723 Active 2017 Not Available [facility] 1 00:45:36 Screening for malignant neoplasm of breast Active 2018 Not Available [facility] 1 00:45:36 Cough 38309838 Active 2019 Not Available [facility] 1 00:45:36 Diarrhea 03442671 Active 2020 Not Available [facility] 00:45:36 Hematoche cruz 583636019 Active 2020 Not Available [facility] 00:45:36 Right bundle branch block 19101216 Active 2020 see myocardial perfusion study 09/09/2020 Not Available [facility] 1 00:45:37 Kidney stone 40172818 Active [address] 10/29/2020 Not Available [facility] 00:45:36 Adenocarc inoma of sigmoid colon 813714677 Active 2020 Darin Valles PA-C Attn: Accounting ,[address] [place], [address] , [place] [facility] 1 11:10:26 Anxiety 28003143 Active 2020 Darin Valles PA-C Attn: Accounting ,[address] [place], [address] , [place] [facility] 1 14:31:53 Cholelith iasis without obstructi on 15692657 Active 2021 Darin Valles PA-C Attn: Accounting ,[address] [place], [address] , [place] [facility] 2 10:04:02 Thyroid nodule 501418706 Active 2021 Darin Valles PA-C Attn: Accounting ,[address] [facility], [place], [address] , [place] [facility] 2 10:04:16 Otitis externa 8960350 Active 2021 Darin Valles PA-C Attn: Accounting ,[address] [place], [address] , [place] [facility] 2 13:07:17 Failure of orgasm 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 Please review this document and add these problems to the patient's chart manually as needed. Problem Notes None recorded. Procedures Surgical History Date Name Laterality Status Provider Name and Address Organization Details Recorded Time 4 Date of Last Pap Smear completed Juanita Durham MA [facility] 10/16/2015 12:01:18 4 Most Recent Mammogram completed Juanita Durham MA [facility] 10/16/2015 12:17:35 Orthopedic Surgery completed Juanita Durham MA [facility] 10/16/2015 12:10:45 Imaging Results None recorded. Procedure Notes None recorded. Medical Equipment None Reported. Allergies Allergen ID Allergen Name Allergen Category Reaction Reaction Severity Criticality Documentation Date Start Date Code Code System Note Provider Name and Address Organization Details Recorded Time 70283 iodine medicatio n Not available Not available Not available 08/29/2014 5933 [facility] 15:22:31 08971 Iodinated contrast media (substanc e) medicatio n Not available Not available Not available 08/29/2014 64761 2004 SNOMED ANICETO De [facility] 5 15:22:31 Medications Name Sig Start Date Stop Date Status Note LastModified by Organization Details LastModified Time amoxicill in 500 mg capsule 10/20 completed Not Available Not Available Not Available atorvasta tin 40 mg tablet TAKE 1 TABLET BY MOUTH EVERY DAY active Not Available Not Available No t Available lamotrigi ne 150 mg tablet active Not Available Not Available Not Available Qvar 80 mcg/actua tion Metered Aerosol oral inhaler 06/10 completed Not Available Not Available Not Available lamotrigi ne 200 mg tablet TAKE 2 TABLETS BY MOUTH TWICE DAILY active Not Available Not Available No t Available ipratropi um 0.5 mg-albute rol 3 mg (2.5 mg base)/3 mL nebulizat ion soln USE 3 ML(1 VIAL) VIA NEBULIZE R TWICE DAILY 06/10 completed Not Available Not Available Not Available albuterol sulfate 2.5 mg/3 mL (0.083 %) solution for nebulizat ion Inhale 3 mL 3 times a day by nebuliza tion route. 10/20 completed Not Available Not Available Not Available loperamid e 2 mg capsule Take 2 capsules as needed by oral route for 10 days. 10/20 completed Not Available Not Available Not Available atorvasta tin 10 mg tablet TAKE 1 TABLET BY MOUTH DAILY active Not Available Not Available No t Available Stool Softener 100 mg capsule TAKE 1 CAPSULE (100 MG TOTAL) BY MOUTH 2 (TWO) TIMES A DAY NEEDED FOR CONSTIPA TION WITH A GLASS OF WATER. HOLD FOR DIARRHEA 10/20 completed Not Available Not Available Not Available azithromy laura 250 mg tablet 2 tabs for 1 day then 1 tab daily for 4 more days 10/20 completed Not Available Not Available Not Available ibuprofen 800 mg tablet Take 1 tablet 3 times a day by oral route with meals for 30 days. 10/20 completed Not Available Not Available Not Available ofloxacin 0.3 % eye drops 10/20 completed Not Available Not Available Not Available tizanidin e 4 mg tablet Take 1 tablet(s ) every 8 hours by oral route as needed for 30 days. 06/10 completed Not Available Not Available Not Available hydrocodo ne 5 mg-acetam inophen 325 mg tablet 06/10 completed Not Available Not Available Not Available prednison e 20 mg tablet Take 2 tablets twice a day by oral route as directed for 2 days. 08/14 completed Not Available Not Available Not Available isosorbid e mononitra te ER 30 mg tablet,ex tended release 24 hr 10/20 completed Not Available Not Available Not Available clonazepa m 0.5 mg tablet Take 1 tablet twice a day by oral route for 30 days. 10/20 completed Not Available Not Available Not Available miconazol e nitrate 2 % vaginal cream active Not Available Not Available Not Available clindamyc in HCl 150 mg capsule active Not Available Not Available Not Available meclizine 12.5 mg tablet Take 1 tablet 3 times a day by oral route as needed for 30 days. 06/10 completed Not Available Not Available Not Available metronida zole 500 mg tablet 10/20 completed Not Available Not Available Not Available acetamino phen 300 mg-codein e 30 mg tablet 06/10 completed Not Available Not Available Not Available ciproflox acin 500 mg tablet active Not Available Not Available No t Available sulfameth oxazole 800 mg-trimet hoprim 160 mg tablet active Not Available Not Available Not Available aspirin 81 mg tablet,de layed release active Not Available Not Available Not Available tramadol 50 mg tablet 10/20 completed Not Available Not Available Not Available acetamino phen 500 mg tablet Take 2 tablets 3 times a day by oral route as needed for 30 days. 02/19 completed Not Available Not Available Not Available triamcino lone acetonide 0.1 % topical cream active Not Available Not Available Not Available carvedilo l 3.125 mg tablet 10/20 completed Not Available Not Available Not Available ondansetr on 8 mg disintegr ating tablet 10/20 completed Not Available Not Available Not Available Depo-Medr ol 80 mg/mL suspensio n for injection 08/29 completed Not Available Not Available Not Available guaifenes in 200 mg tablet 10/20 completed Not Available Not Available Not Available ketorolac 0.5 % eye drops 10/20 completed Not Available Not Available Not Available phenobarb ital 60 mg tablet TAKE 1 TABLET BY MOUTH EVERY 8 HOURS active Not Available Not Available No t Available meloxicam 7.5 mg tablet 06/10 completed Not Available Not Available Not Available famotidin e 20 mg tablet 10/20 completed Not Available Not Available Not Available prednisol one acetate 1 % eye drops,cora pension 10/20 completed Not Available Not Available Not Available Fleet Laxative (bisacody l) 5 mg tablet,de layed release 10/20 completed Not Available Not Available Not Available Imodium A-D 2 mg tablet Take 2 tablets as needed by oral route for 5 days. 10/20 completed Not Available Not Available Not Available IBU 600 mg tablet TAKE 1 TABLET BY MOUTH EVERY 8 HOURS 10/20 completed Not Available Not Available Not Available Proctozon e-HC 2.5 % topical cream perineal applicato r APPLY A THIN LAYER TO THE AFFECTED AREA(S) BY TOPICAL ROUTE 2-4 TIMESDAI LY 10/20 completed Not Available Not Available Not Available baclofen 10 mg tablet Take 1 tablet 3 times a day by oral route as needed for 30 days. 06/10 completed Not Available Not Available Not Available hydrocodo ne 7.5 mg-acetam inophen 325 mg tablet 06/10 completed Not Available Not Available Not Available cyanocoba carlito (vit B-12) 1,000 mcg/mL injection solution Inject 1000 microgra ms every month by subcutan eous route. 06/10 completed Not Available Not Available Not Available nystatin 100,000 unit/gram topical cream 10/20 completed Not Available Not Available Not Available ranitidin e 150 mg tablet TAKE 1 TABLET BY MOUTH TWICE DAILY 30 MINUTES BEFORE MEALS. 10/10 completed contamin ants Not Available Not Available Not Available prednison e 50 mg tablet TAKE ONE TABLET 13 HOURS, 7 HOURS AND 1 HOUR PRIOR TO APPOINTM ENT TIME. 04/12 completed Not Available Not Available Not Available polymyxin B sulfate 10,000 unit-trim ethoprim 1 mg/mL eye drops 10/20 completed Not Available Not Available Not Available phenobarb ital 64.8 mg tablet 10/20 completed Not Available Not Available Not Available omeprazol e 20 mg capsule,d elayed release Take 1 capsule twice a day by oral route before meals for 30 days. 10/20 completed Not Available Not Available Not Available Banophen 25 mg capsule 10/20 completed Not Available Not Available Not Available magnesium citrate oral solution Take 295 mL as needed by oral route as needed for 1 day. 06/10 completed Not Available Not Available Not Available Nix Creme Rinse 1 % topical liquid APPLY A SUFFICIE NT AMOUNT OF SHAMPOO BY TOPICAL ROUTE ONCE ALLOW TO REMAIN ON HAIR FOR 15 MINUTES BEFORE RINSING OFF WITH WATER 06/10 completed Not Available Not Available Not Available monteluka st 10 mg tablet TAKE ONE TABLET BY MOUTH DAILY 08/14 completed Not Available Not Available Not Available cyanocoba carlito (vit B-12) 1,000 mcg sublingua l tablet Place 1 tablet twice a day by sublingu al route for 30 days. 10/20 completed Not Available Not Available Not Available levofloxa laura 500 mg tablet 06/08 completed Not Available Not Available Not Available neomycin 500 mg tablet 10/20 completed Not Available Not Available Not Available albuterol sulfate HFA 90 mcg/actua tion aerosol inhaler INHALE 2 PUFFS BY MOUTH EVERY 4 HOURS NEEDED active Not Available Not Available No t Available Vitamin D2 1,250 mcg (50,000 unit) capsule TAKE 1 CAPSULE BY MOUTH EVERY WEEK 10/20 completed Not Available Not Available Not Available fluticaso ne propionat e 50 mcg/actua tion nasal spray,cora pension [place] 1 spray(s) twice a day by intranas al route for 30 days. 06/10 completed Not Available Not Available Not Available naproxen 500 mg tablet Take 1 tablet twice a day by oral route for 30 days. 10/20 completed Not Available Not Available Not Available amoxicill in 875 mg-potass ium clavulana te 125 mg tablet Take 1 tablet every 12 hours by oral route for 10 days. 04/12 completed Not Available Not Available Not Available oxycodone 5 mg tablet TAKE 1 TABLET BY MOUTH EVERY FOUR HOURS NEEDED FOR BREAKTHR OUGH PAIN 10/20 completed Not Available Not Available Not Available enoxapari n 40 mg/0.4 mL subcutane ous syringe INJECT 0.4 ML (40 MG TOTAL) UNDER THE SKIN DAILY FOR 21 DAYS 10/20 completed Not Available Not Available Not Available azithromy laura 500 mg tablet TAKE 1 TABLET BY MOUTH EVERY DAY FOR 5 DAYS 08/29 completed Not Available Not Available Not Available ezetimibe 10 mg tablet take one tablet every day by oral route for 30 days 10/20 completed Not Available Not Available Not Available Allergy Relief (loratadi ne) 10 mg tablet TAKE 1 TABLET BY MOUTH EVERY DAY 10/20 completed Not Available Not Available Not Available rosuvasta tin 40 mg tablet 10/20 completed Not Available Not Available Not Available Spiriva with HandiHale r 18 mcg and inhalatio n capsules INHALE THE CONTENTS OF ONE CAPSULE DAILY AT BEDTIME 10/20 completed Not Available Not Available Not Available Atrovent HFA 17 mcg/actua tion aerosol inhaler INHALE 2 PUFFS BY MOUTH FOUR TIMES DAILY NEEDED ONLY 06/10 completed Not Available Not Available Not Available budesonid e-formote rol HFA 80 mcg-4.5 mcg/actua tion aerosol inhaler INHALE 2 PUFFS BY MOUTH TWICE A DAY active Not Available Not Available No t Available lamotrigi ne 200 mg disintegr ating tablet TAKE 2 TABLETS BY MOUTH TWICE DAILY 10/20 completed Not Available Not Available Not Available GaviLyte- N 420 gram oral solution FOLLOW PRESCRIB ERS DIRECTIO NS ON COLONOSC OPY PREP PACKET 10/20 completed Not Available Not Available Not Available ClearLax 17 gram/dose oral powder 10/20 completed Not Available Not Available Not Available calcium 600 mg (as carbonate )-vitamin D3 20 mcg (800 unit) tablet Take 1 tablet twice a day by oral route for 30 days. 06/10 completed Not Available Not Available Not Available Qvar RediHaler 80 mcg/actua tion HFA breath activated aerosol Inhale 2 puffs twice a day by inhalati on route for 30 days. 10/20 completed Not Available Not Available Not Available Vitals Date Recorded Body height Body mass index (BMI) Body weight Heart rate Body temperature Oxygen saturation Oxygen saturation in Arterial blood by Pulse oximetry Systolic And Diastolic Provider Name and Address Organization Details Last Updated DateTime 3 172.72 cm 29.5 kg/m2 55995.9 2 g 90 /min 98.1 [degF] 95 % 95 % 106/78 mm[Hg] Gudelia Chamorro [place] - [facility] 3 16:05:29 Date Recorded Body height Body mass index (BMI) Body weight Heart rate Systolic And Diastolic Provider Name and Address Organization Details Last Updated DateTime 12/26/2024 172.72 cm 23.9 kg/m2 34024 g 82 /min 120/72 mm[Hg] Sonido Valles MA [facility] 12/26/2024 16:44:30 Date Recorded Body height Body mass index (BMI) Body weight Oxygen saturation Oxygen saturation in Arterial blood by Pulse oximetry Heart rate Systolic And Diastolic Provider Name and Address Organization Details Last Updated DateTime 4 172.72 cm 29.5 kg/m2 30894.9 2 g 96 % 96 % 80 /min 128/80 mm[Hg] Gudelia Chamorro MA [facility] 4 16:52:09 Date Recorded Body height Body mass index (BMI) Body weight Oxygen saturation Oxygen saturation in Arterial blood by Pulse oximetry Heart rate Systolic And Diastolic Provider Name and Address Organization Details Last Updated DateTime 172.72 cm 26.2 kg/m2 75105.3 2 g 95 % 95 % 80 /min 128/80 mm[Hg] Ruma Ash MA [facility] 2 12:29:58 Date Recorded Body height Body mass index (BMI) Body weight Oxygen saturation Oxygen saturation in Arterial blood by Pulse oximetry Heart rate Body temperature Systolic And Diastolic Provider Name and Address Organization Details Last Updated DateTime 2 172.72 cm 27.1 kg/m2 26582.4 4 g 95 % 95 % 79 /min 98.6 [degF] 112/74 mm[Hg] Rosaura Montelongo CMA [facility] 2 12:25:39 Social History Question Answer Notes LastModified by Organizat ion Details LastModified Time Tobacco Smoking Status Former Smoker quit 2004 Ruma Ash MA null, [place] - [facility] 03/11/2022 12:22:25 Do You Have An Advance Directive? Yes Information not available 08/29/2014 Are You Blind Or Do You Have Difficulty Seeing? No Information not available 08/29/2014 Is Blood Transfusion Acceptable In An Emergency? Yes Information not available 10/16/2015 What Is Your Level Of Caffeine Consumption? Moderate Information not available 08/29/2014 How Much Tobacco Do You Chew? None Information not available 08/29/2014 Are You Deaf Or Do You Have Serious Difficulty Hearing? No Information not available 08/29/2014 What Type Of Diet Are You Following? REGULAR Information not available 08/29/2014 Which Illicit Or Recreational Drugs Have You Used? None Information not available 10/16/2015 Education 8 Information no t available 08/29/2014 Are There Any Guns Present In Your Home? No Information not available 08/29/2014 Hard Of Hearing Or Deaf In One Or Both Ears? No Information not available 08/29/2014 Legally Blind In One Or Both Eyes? No Information not available 08/29/2014 Live Alone Or With Others? With Others Information not available 10/16/2015 Marital Status Single Informatio n not available 08/29/2014 What Was The Date Of Your Most Recent Tobacco Screening? 12/26/2024 Information not available 12/26/2024 How Many Children Do You Have? 2 Information not available 10/16/2015 Performs Monthly Self-breast Exam? No Information not available 08/29/2014 Do You Use Protection During Sex? Always Information not available 10/16/2015 What Is Your Relationship Status? Information not available 10/16/2015 Do You Use Your Seat Belt Or Car Seat Routinely? Yes Information not available 10/30/2020 Seat Belts Used Routinely Yes Information not available 08/29/2014 Are You Sexually Active? No Information not available 10/16/2015 Smoke Alarm In Home Yes Information not available 08/29/2014 Do You Have Smoke And Carbon Monoxide Detectors In Your Home? Yes Information not available 10/30/2020 Are You Passively Exposed To Smoke? No Information not available 10/30/2020 How Much Tobacco Do You Smoke? No Information not available 08/29/2014 General Stress Level Medium Information not available 08/29/2014 Do You Use Sunscreen Routinely? Yes Information not available 08/29/2014 Has Tobacco Cessation Counseling Been Provided? No Information not available 10/20/2022 On What Date Was Tobacco Cessation Counseling Provided? 12/26/2024 Information not available 12/26/2024 Do You Have Difficulty Walking Or Climbing Stairs? Yes Information not available 08/29/2014 Sex: Female Functional Status Question Answer Note LastModified by Organizat ion Details LastModified Time Do you use any illicit or recreational drugs? No Information not available 10/30/2020 Do you or have you ever used any other forms of tobacco or nicotine? No Information not available 10/20/2022 What is your level of alcohol consumption? None Information not available 08/29/2014 Do you or have you ever used smokeless tobacco? Never used smokeless tobacco Information not available 06/10/2020 Are you currently employed? No Information not available 10/16/2015 Do you have difficulty doing errands alone? No Information not available 08/29/2014 Are you able to care for yourself independently? Yes Information not available 10/30/2020 What is your occupation? Disabled Information not available 08/29/2014 Do you have difficulty dressing, bathing, grooming, or toileting? No Information not available 08/29/2014 Do you or have you ever used e-cigarettes or vape? Never used electronic cigarettes Information not available 06/10/2020 What is your exercise level? None Information not available 08/29/2014 Mental Status Question Answer Note LastModified by Organizat ion Details LastModified Time Do you feel stressed (tense, restless, nervous, or anxious, or unable to sleep at night)? [id number] Information not available 10/30/2020 Do you have difficulty concentrating, remembering or making decisions? Yes Information no t available 08/29/2014 Family History Relationship Description Onset Age of this Age Resolved Age Notes LastModified by Organization Details LastModified Time Brother Hypertensive disorder [email or web address] Not available 10/15 14:04:23 Brother Disease of liver [email or web address] Not available 10/2018 16:41:52 Brother Heart disease [email or web address] Not available 10/2018 16:42:19 Father Malignant neoplasm of lung 60 [email or web address] Not available 10/15 14:04:23 Medical History Condition Response Other Y High Blood Pressure N Breast Cancer N Thyroid Problems N Kidney or Bladder Problems N Lung Disease N COPD Y Blood Clots N Depression N GI Problems N Acne N Breast Problem N Eating Disorder N Anemia N Anesthesia Complications N Headaches/Migraines N Ovarian Cancer N Diabetes N Anxiety Disorder N Muscle, Joint, or Bone Problems N Blood Transfusions N Seizures/Epilepsy N Polyps N Infertility N Acid Reflux (GERD) N Cancer N Abuse/Domestic Violence N Asthma Y Endometriosis N High Cholesterol N Hepatitis N Liver Disease N Heart Disease N Pre-Eclampsia N Osteoporosis N Gynecological History Statement/Question Response Date of Last Mammogram On BCP's at Conception? N STIs/STDs N HPV Vaccine N Most Recent Mammogram 07/11/2013 Age at Menarche 13 Current Control Method None Age at First Child 25 If Post Menopausal, Age at Menopause 49 Sexually Active? N Menses Monthly N Date of Last Pap Smear 12/25/2013 Sexual Problems? N Desired Control Method None Obstetrics History GPAL:G 2 P 2 0 0 2 Type Value Full Term 2 Living 2 Total 2 Immunizations Vaccine Type Date Status Note Provider Nam e and Address Organization Details Recorded Time Influenza, split virus, quadrivalent, preservative 6 completed Not Available [facility] 07/28/2019 02:44:48 Influenza, split virus, quadrivalent, preservative 7 completed Not Available [facility] 07/28/2019 02:34:21 pneumococcal polysaccharide PPV23 7 completed Not Available [facility] 07/28/2019 02:34:21 Influenza, split virus, quadrivalent, PF 8 completed Not Available [facility] 07/28/2019 02:36:00 Influenza, split virus, quadrivalent, preservative 9 completed Not Available [facility] 07/28/2019 02:38:14 Influenza, split virus, quadrivalent, preservative 2 completed ANICETO Sanchez, [place] - [facility] 07/14/2021 17:51:22 Past Encounters Encounter ID Performer Location Encounter Start Date Encounter Closed Date Diagnosis/Indication Diagnosis SNOMED-CT Code Diagnosis ICD10 Code Diagnosis IMO Codes Diagnosis Note [id number] [facility] (Adult Med) [address] [place] [address] [id number] 0 08/29/2014 15:00:24 08/29/2014 17:58:35 Constipation 63866951 Labyrinthitis 61804635 Hyperlipidemia 50251290 Seizure disorder 820311024 Vitamin D deficiency 70460324 [id number] [facility] (Adult Med) [address] [place] [address] [id number] 11/01/2014 15:12:14 11/01/2014 16:31:45 Candidiasis 28635289 Labyrinthitis 10646825 Constipation 97588503 Folliculitis 70920923 Hyperlipidemia 05814797 Allergic rhinitis 54904198 Asthma 717360532 Disorder o f vitamin B12 000056424 Seizure disorder 561204192 Vitamin D deficiency 37516441 [id number] MD Joseph Schaeffer (Adult Med) [address] [place] [address] [id number] 01/02/2015 15:20:56 01/03/2015 10:04:07 Constipation 11665291 Labyrinthitis 08856298 Low back pain 181175000 [id number] MD Joseph Schaeffer (Adult Med) [address] [place] [address] [id number] 03/18/2015 15:34:48 03/18/2015 16:43:30 Allergic rhinitis 47049955 Asthma 406557538 Constipation 25372962 Disorder o f vitamin B12 758617532 Folliculitis 84411860 Hyperlipidemia 05529244 Low back pain 930515232 Seizure disorder 933900192 Vitamin D deficiency 12613379 [id number] [facility] Camp[facility] (Adult Med) [address] [place] [address] [id number] 09/03/2015 11:32:59 09/03/2015 12:18:19 Allergic rhinitis 76929467 J30.9 Asthma 318922310 J45.90 9 Constipation 76610261 K5 9.00 Disorder o f vitamin B12 341949233 D51.1 Hyperlipidemia 19435845 E78.5 Low back pain 621775752 M54.5 Seizure disorder 4634306 02 G40.909 seizure in may 2 minutes: ; one in June . same Vitamin D deficiency 347 89613 E55.9 [id number] [facility] (Adult Med) [address] [place] [address] [id number] 10/03/2015 14:50:59 10/03/2015 16:15:28 Pneumonia 545564739 J18.9 Asthma 415748227 J45.90 9 Disorder o f vitamin B12 971912980 D51.1 Constipation 55470019 K5 9.00 Hyperlipidemia 22856302 E78.5 Low back pain 681420485 M54.5 Seizure disorder 2949079 02 G40.909 seizure in may 2 minutes: ; one in June . same Vitamin D deficiency 347 59035 E55.9 [id number] [facility] (Adult Med) [address] [place] [address] [id number] 10/10/2015 10:26:50 10/13/2015 15:16:54 Pneumonia 720710527 J18.9 Low back pain 888338265 M54.5 Hyperlipidemia 83487274 E78.5 Asthma 641759956 J45.90 9 Constipation 36709574 K5 9.00 Disorder o f vitamin B12 563140168 D51.1 Vitamin D deficiency 347 62380 E55.9 [id number] MD Joseph Goff (CLINICAL SUPERVISOR) [address] [place] [address] [id number] 10/16/2015 10:22:12 10/16/2015 13:37:37 Gynecologic examination 71195870 Z01.419 Screening for malignant neoplasm of breast 147332875 Z12.31 [id number] [facility] Camp[facility] (Adult Med) [address] [place] [address] [id number] 11/28/2015 14:47:50 11/28/2015 16:07:20 Asthma 940886171 J45.909 Hyperlipidemia 14134034 E78.5 Disorder o f vitamin B12 398121050 D51.1 Allergic rhinitis 007830 04 J30.9 Low back pain 984646623 M54.5 Seizure disorder 1672125 02 G40.909 seizure in may 2 minutes: ; one in June . same Vitamin D deficiency 347 84053 E55.9 [id number] Parmjit Best MD [facility] (Adult Med) [address] [place] [address] [id number] 03/05/2016 10:06:59 03/05/2016 12:04:37 Allergic rhinitis 88483537 J30.9 Asthma 622941769 J45.90 9 Constipation 23699095 K5 9.00 Disorder o f vitamin B12 675758964 D51.1 Hyperlipidemia 88594402 E78.5 Seizure disorder 4397960 02 G40.909 seizure in may 2 minutes: ; one in June . same Vitamin D deficiency 347 55341 E55.9 Low back pain 162928965 M54.5 Gastroesop hageal reflux disease 232597388 K21.9 [id number] Doroteo Hall MD [facility] (Adult Med) [address] [place] [address] [id number] 06/08/2016 14:53:24 06/08/2016 16:47:02 Pediculosis capitis 14041196 B85.0 Asthma 845421128 J45.90 9 Seizure disorder 1234117 02 G40.909 seizure in may 2 minutes: ; one in June . same Gastroesop hageal reflux disease 650356832 K21.9 Low back pain 502051638 M54.5 Vitamin D deficiency 347 60985 E55.9 Disorder o f vitamin B12 729013311 D51.1 Hyperlipidemia 17173939 E78.5 Allergic rhinitis 570992 04 J30.9 Administra tion of influenza vaccine 90980317 Z23 [id number] Doroteo Hall MD [facility] (Adult Med) [address] [place] [address] [id number] 09/07/2016 15:57:18 09/07/2016 16:53:13 Acute sinusitis 91657059 J01.90 Screening for malignant neoplasm of colon 060654860 Z12.11 Hyperlipidemia 79543603 E78.5 Asthma 152041869 J45.90 9 Low back pain 398608096 M54.5 Gastroesop hageal reflux disease 476135504 K21.9 Vitamin D deficiency 347 40151 E55.9 [id number] Doroteo Hall MD [facility] (Adult Med) [address] [place] [address] [id number] 11/02/2016 15:14:43 11/02/2016 16:01:04 Allergic rhinitis 55587551 J30.9 [id number] Doroteo Hall MD [facility] (Adult Med) [address] [place] [address] [id number] 02/07/2017 15:30:47 02/07/2017 17:52:21 Vitamin D deficiency 71815644 E55.9 Allergic rhinitis 761173 04 J30.9 Hyperlipidemia 14739787 E78.5 Disorder o f vitamin B12 668073596 D51.1 Seizure disorder 8554195 02 G40.909 seizure in may 12 minutes: ; one in June . same Asthma 652094821 J45.90 9 Low back pain 889435826 M54.5 [id number] Doroteo Hall MD [facility] (Adult Med) [address] [place] [address] [id number] 04/08/2017 15:36:42 04/08/2017 16:47:27 Administration of influenza vaccine 25458505 Z23 Administra tion of pneumococcal vaccine 40066251 Z23 Gastroesop hageal reflux disease 670938453 K21.9 Low back pain 744832182 M54.5 Vitamin D deficiency 347 04568 E55.9 Asthma 277959434 J45.90 9 Allergic rhinitis 051868 04 J30.9 Seizure disorder 9594135 02 G40.909 seizure in may 2 minutes: ; one in June . same [id number] MD Joseph Schaeffer (Adult Med) [address] [place] [address] [id number] 06/09/2017 17:28:28 06/09/2017 17:45:33 Asthma 286185426 J45.909 Disorder o f vitamin B12 121411803 D51.1 Hyperlipidemia 23151722 E78.5 Seizure disorder 0544128 02 G40.909 seizure in may 2 minutes: ; one in June . same Allergic rhinitis 859197 04 J30.9 Gastroesop hageal reflux disease 569679535 K21.9 Low back pain 064575860 M54.5 Vitamin D deficiency 347 51530 E55.9 Normal grief reaction 27 5265211 F43.20 [id number] Doroteo Hall MD [facility] (Adult Med) [address] [place] [address] 0 08/29/2017 15:31:35 08/29/2017 16:10:13 Gastroesophageal reflux disease 128256055 K21.9 Low back pain 564554200 M54.5 Vitamin D deficiency 347 68169 E55.9 Asthma 233916209 J45.90 9 Seizure disorder 2407613 02 G40.909 seizure in may 2 minutes: ; one in June . same Hyperlipidemia 04518910 E78.5 Screening for malignant neoplasm of colon 456819623 Z12.11 [id number] Doroteo Hall MD [facility] (Adult Med) [address] [place] [address] 0 10/27/2017 14:36:53 10/27/2017 15:38:23 Gastroesophageal reflux disease 179529894 K21.9 Low back pain 993104321 M54.5 Vitamin D deficiency 347 76286 E55.9 Asthma 893686716 J45.90 9 Hyperlipidemia 57268442 E78.5 Disorder o f vitamin B12 109025177 D51.1 Seizure disorder 2115821 02 G40.909 seizure in may 2 minutes: ; one in June . same [id number] Doroteo Hall MD [facility] (Adult Med) [address] [place] [address] 0 03/28/2018 16:09:26 03/29/2018 10:17:37 Low back strain 431701222 S39.012A Normal grief reaction 27 6248870 F43.20 Administra tion of influenza vaccine 83715129 Z23 Seizure disorder 7737459 02 G40.909 seizure in may 2 minutes: ; one in June . 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 same Gastroesop hageal reflux disease 211485732 K21.9 Low back pain 272146868 M54.5 Allergic rhinitis 820379 04 J30.9 Normal grief reaction 27 6822768 F43.20 [id number] Doroteo Hall MD [facility] (Adult Med) [address] [place] [address] [phone] 0 04/26/2019 16:08:31 04/26/2019 17:09:14 Allergic rhinitis 22519679 J30.9 Administra tion of influenza vaccine 86181375 Z23 Gastroesop hageal reflux disease 125232483 K21.9 Low back pain 406918611 M54.5 Vitamin D deficiency 347 27285 E55.9 Hyperlipidemia 51817640 E78.5 Seizure disorder 2705931 02 G40.909 seizure in may 2 minutes: ; one in June . same [id number] Doroteo Hall MD [facility] (Adult Med) [address] [place] [address] 01585-265 0 06/18/2019 16:23:55 06/19/2019 10:18:04 Screening for malignant neoplasm of breast 137501024 Z12.39 Gastroesop hageal reflux disease 971049739 K21.9 Hyperlipidemia 40591180 E78.5 Low back pain 383308041 M54.5 Vitamin D deficiency 347 71695 E55.9 [id number] MD [facility] (Adult Med) [address] [place] [address] [id number] 0 09/10/2019 15:57:42 09/11/2019 14:34:09 Gastroesophageal reflux disease 953846903 K21.9 Allergic rhinitis 751419 04 J30.9 Asthma 476362714 J45.90 9 Vitamin D deficiency 347 25745 E55.9 Disorder o f vitamin B12 735277336 D51.1 Low back pain 602329791 M54.5 Seizure disorder 5293297 02 G40.909 seizure in may 12 minutes: ; one in June . same Hyperlipidemia 84890609 E78.5 [id number] [facility] (Adult Med) [address] [place] [address] [id number] 0 10/11/2019 14:14:38 10/11/2019 15:57:32 Asthma 386707537 J45.909 Gastroesop hageal reflux disease 417220179 K21.9 Allergic rhinitis 120304 04 J30.9 [id number] MD [facility] (Adult Med) [address] [place] [address] [phone] 0 12/11/2019 08:25:19 12/12/2019 17:03:45 Allergic rhinitis 05095381 J30.9 Disorder o f vitamin B12 037712104 D51.1 Gastroesop hageal reflux disease 142530548 K21.9 Hyperlipidemia 69954682 E78.5 Low back pain 499731308 M54.5 Vitamin D deficiency 347 89455 E55.9 Seizure disorder 8397320 02 G40.909 seizure in may 12 minutes: ; one in June . same Asthma 137162327 J45.90 9 [id number] MD [facility] (Adult Med) [address] [place] [address] 90809-277 0 02/11/2020 08:30:27 02/11/2020 14:48:16 Vitamin D deficiency 65162022 E55.9 Hyperlipidemia 74736877 E78.5 Gastroesop hageal reflux disease 937391916 K21.9 Cough 97391243 R05 [id number] Doroteo Hall MD [facility] (Adult Med) [address] [place] [address] [id number] 0 04/11/2020 08:10:37 04/11/2020 16:25:16 Cough 56761472 R05 Allergic rhinitis 066427 04 J30.9 Asthma 579064178 J45.90 9 Gastroesop hageal reflux disease 375340750 K21.9 Hyperlipidemia 50237576 E78.5 Low back pain 000272877 M54.5 Vitamin D deficiency 347 78654 E55.9 Seizure disorder 9062548 02 G40.909 seizure in may 2 minutes: ; one in June . same [id number] Doroteo Hall MD [facility] (Adult Med) [address] [place] [address] [phone] 0 06/10/2020 08:17:10 06/11/2020 08:44:12 Allergic rhinitis 18505805 J30.9 Disorder o f vitamin B12 086064844 D51.1 Gastroesop hageal reflux disease 074363279 K21.9 Hyperlipidemia 77480884 E78.5 Low back pain 117329682 M54.5 Seizure disorder 7031044 02 G40.909 seizure in may 2 minutes: ; one in June . same Vitamin D deficiency 347 41600 E55.9 Asthma 336524357 J45.90 9 [id number] Doroteo Hall MD [facility] (Adult Med) [address] [place] [address] [id number] 0 07/14/2020 09:35:08 07/14/2020 15:55:47 Diarrhea 33081579 R19.7 Low back pain 114424270 M54.5 Allergic rhinitis 690278 04 J30.9 Asthma 359546452 J45.90 9 Disorder o f vitamin B12 157809579 D51.1 Gastroesop hageal reflux disease 498211240 K21.9 Hyperlipidemia 71723587 E78.5 Seizure disorder 2389555 02 G40.909 seizure in may 2 minutes: ; one in June . same Vitamin D deficiency 347 09375 E55.9 [id number] Doroteo Hall MD [facility] (Adult Med) [address] [place] [address] 05402-324 0 08/14/2020 09:00:46 08/15/2020 10:30:12 Vitamin D deficiency 43989152 E55.9 Hematochezia 514219094 K 92.1 Screening for malignant neoplasm of colon 347543730 Z12.11 Allergic rhinitis 366491 04 J30.9 Hyperlipidemia 38737533 E78.5 Disorder o f vitamin B12 066676206 D51.1 Gastroesop hageal reflux disease 084473879 K21.9 Low back pain 306471490 M54.5 Seizure disorder 4906329 02 G40.909 seizure in may 12 minutes: ; one in June . same [id number] Doroteo Hall MD [facility] (Adult Med) [address] [place] [address] [id number] 0 10/30/2020 08:30:44 10/30/2020 12:05:26 Vitamin D deficiency 53847137 E55.9 Diarrhea 61580343 R19.7 Low back pain 457472260 M54.5 Gastroesop hageal reflux disease 116897576 K21.9 Constipation 36228754 K5 9.00 Allergic rhinitis 694370 04 J30.9 [id number] Doroteo Hall MD [facility] (Adult Med) [address] [place] [address] [phone] 0 07/14/2021 17:17:48 07/14/2021 17:51:45 Anxiety 28294712 F41.9 Seizure disorder 8933941 02 G40.909 seizure in may 2 minutes: ; one in June . same Administra tion of influenza vaccine 97129614 Z23 Disorder o f vitamin B12 192715533 D51.1 Hyperlipidemia 45102338 E78.5 Adenocarci noma of sigmoid colon 495230844 C18.7 Vitamin D deficiency 347 69904 E55.9 Right bund le branch block 97893244 I45.0 [id number] Doroteo Hall MD [facility] (Adult Med) [address] [place] [address] 25003-303 0 09/01/2021 16:30:11 09/02/2021 11:38:31 Vitamin D deficiency 10764403 E55.9 Seizure disorder 6274641 02 G40.909 seizure in may 2 minutes: ; one in June . same Right bund le branch block 23051427 I45.0 Low back pain 153014351 M54.50 Kidney stone 01005192 N2 0.0 Hyperlipidemia 20091123 E78.5 Gastroesop hageal reflux disease 855001875 K21.9 Disorder o f vitamin B12 055545377 D51.1 Constipation 56123821 K5 9.00 Cholelithi asis without obstruction 42007268 K80.20 calcificat ion of gallbladde r as well Allergic rhinitis 059986 04 J30.9 Adenocarci noma of sigmoid colon 122444587 C18.7 [id number] Doroteo Hall MD [facility] (Adult Med) [address] [place] [address] [phone] 0 03/11/2022 11:32:09 03/16/2022 09:29:36 Otitis externa 9635228 H60.92 Acute sinusitis 15828985 J01.90 Asthma 877965041 J45.90 9 Adenocarci noma of sigmoid colon 204697770 C18.7 Allergic rhinitis 866547 04 J30.9 Anxiety 26777856 F41.9 Constipation 29944942 K5 9.00 Disorder o f vitamin B12 894828785 D51.1 Gastroesop hageal reflux disease 326844511 K21.9 Hyperlipidemia 94846650 E78.5 Low back pain 895150421 M54.50 Right bund le branch block 17367188 I45.0 Seizure disorder 0369310 02 G40.909 seizure in may 2 minutes: ; one in June . same Vitamin D deficiency 347 80058 E55.9 [id number] Doroteo Hall MD [facility] (Adult Med) [address] [place] [address] [phone] 0 04/12/2022 12:07:54 04/13/2022 10:32:19 Failure of orgasm 272058898 F52.31 Allergic rhinitis 884945 04 J30.9 Anxiety 71336546 F41.9 Asthma 825316028 J45.90 9 Disorder o f vitamin B12 826639704 D51.1 Gastroesop hageal reflux disease 355103593 K21.9 Hyperlipidemia 67038001 E78.5 Vitamin D deficiency 347 94665 E55.9 [id number] Sola Stern MD [facility] (Adult Med) [address] [place] [address] 86251-974 0 10/20/2022 15:46:39 10/21/2022 15:47:26 Overweight 746170101 E66.3 Hyperlipidemia 22826508 E78.5 Gastroesop hageal reflux disease 671187233 K21.9 Seizure disorder 8326813 02 G40.909 Thyroid nodule 824835430 E04.1 [id number] Sola Stern MD [facility] (Adult Med) [address] [place] [address] 25510-451 0 02/20/2024 16:32:42 02/21/2024 16:19:08 Disorder of vitamin B12 172013306 D51.1 Vitamin D deficiency 347 27996 E55.9 Heart murmur 34676559 R0 1.1 F/U at next visit [id number] Sola Stern MD [facility] (Adult Med) [address] [place] [address] [phone] 0 12/26/2024 16:19:54 12/28/2024 11:44:07 Seizure disorder 210084223 G40.909 Will give pt two week supply to allow time for her to contact neurologis t Heart murmur 60991751 R0 1.1 F/U at next visit Health Concerns Section Related Observation LastModified by Organization Detai ls LastModified Time None Recorded Concern Status LastModified by Organization Details LastModified Time None Recorded Advance Directives Directive Y: Payers Insurance Date Sequence Insurance Name Policy Number Policy Andrea Covered Member ID Andrea Member ID Guarantor Name 12/26/2024 [place] [facility] Lluvia Brink [id number] Lluvia Brink 12/26/2024 2 [place] WHEN MEDICARE OR MEDICARE REPLACEMENT PRIMARY) Lluvia Brink [id number] Lluvia Brink 12/26/2024 1 [place] Lluvia Brink [id number] Lluvia Brink 12/26/2024 1 [facility] PRIOR TO 01/08/2021 (MEDICAID REPLACEMENT - HMO) Lluvia Cuba [id number] Lluvia Cuba 12/26/2024 2 [facility] - DOS ON OR AFTER 21 (MEDICAID REPLACEMENT - HMO) Lluvia Cuba [id number] Lluvia Cuba 12/26/2024 1 [facility] (MEDICARE REPLACEMENT/AD VANTAGE - HMO) [id number] Lluvia Whitley [place] [id number] Lluvia [place] Notes Date Note Type Note Provider Name and Address Organization Details Recorded Time 03/11/2022 text/html ROS as noted in the HPI sinus pressure , frontal headach , no fever Darin Valles PA-C Attn: [address] [facility], [place], [address], [place] [facility] 03/15/2022 14:00:18 04/12/2022 text/html ROS as noted in the HPI no changes Darin Valles PA-C Attn: [employer] [facility], [place], [address], [place] [facility] 04/15/2022 21:39:09 10/20/2022 text/html F/U from ED visit after falling at home. Pt was alert during the episode.. Describes herself as clumsy. Sola Stern MD Attn: [address] [facility], [place], [address], [place] [facility] 10/20/2022 17:50:21 02/20/2024 text/html Here for routine f/u. Has not been here for two years. Sola Stern MD Attn: [address] [facility], [place], [address], [place] [facility] 02/20/2024 17:37:20 12/26/2024 text/html Pt here with her granddaughter. Here for medication refills. She has been unable to contact her neurologist and is out of medication. Sola Stern MD Attn: [address]ing[address] [facility], [place], [address], [place] [facility] 12/26/2024 17:28:24 OBGyn Episode Ob Episode Information Episode Created Date Number of Fetuses Patient Bloodtype Patient rh Status Prepregnancy Weight lbs Domestic Partner Domestic Partner Phone Father Name Gold Layer Status 10/16/19 16 1 CLOSED Fetus Data First Name Last Name Admitted to NICU Weight (g) Sex Living Outcome Pediatric Complications Fetus ID Race Codes Race Delivery Type 2438.05 7 F Full Term 95460 Standard Vaginal Delivery Jaron Calculation Initial Jaron Date Initial Exam Date Initial Exam Provider Initial Ultrasound Date Last Menstrual Period Date Ultra Sound Weeks Gestation 0 Eighteen To Twenty Week Jaron Update Ultra Sound Date Fundal Height At Umbil Quickening Date Ultra Sound Latest Weeks Gestation Final Jaron Confirmed By Final Jaron Confirmed Date Final Jaron Date Ultra Sound Latest Days Gestation 0 0 Menstrual History Last Menstrual Date Menses Monthly On Bcp Conception Prior Menses Frequency Hcg Plus Date Menarche Onset Age Delivery Information Delivery Date Delivery Type Labor Anesthesia Weeks Gestation Incision Type Labor Labor Length Hrs Delivered By Post Complications Tubal Sterilization Discharge Date Comments 1 40 false Crystal Discharge Information Feeding Method Contraceptive Method Maternal HG B and HCT Levels Ob Episode Information Episode Created Date Number of Fetuses Patient Bloodtype Patient rh Status Prepregnancy Weight lbs Domestic Partner Domestic Partner Phone Father Name Gold Layer Status 10/16/19 16 1 CLOSED Fetus Data First Name Last Name Admitted to NICU Weight (g) Sex Living Outcome Pediatric Complications Fetus ID Race Codes Race Delivery Type 3968.93 M Full Term 05304 Standard Vaginal Delivery Jaron Calculation Initial Jaron Date Initial Exam Date Initial Exam Provider Initial Ultrasound Date Last Menstrual Period Date Ultra Sound Weeks Gestation 0 Eighteen To Twenty Week Jaron Update Ultra Sound Date Fundal Height At Umbil Quickening Date Ultra Sound Latest Weeks Gestation Final Jraon Confirmed By Final Jaron Confirmed Date Final Jaron Date Ultra Sound Latest Days Gestation 0 0 Menstrual History Last Menstrual Date Menses Monthly On Bcp Conception Prior Menses Frequency Hcg Plus Date Menarche Onset Age Delivery Information Delivery Date Delivery Type Labor Anesthesia Weeks Gestation Incision Type Labor Labor Length Hrs Delivered By Post Complications Tubal Sterilization Discharge Date Comments 7 40 false Chriseph e r Discharge Information Feeding Method Contraceptive Method Maternal HG B and HCT Levels
--- OUTSIDE RECORDS SUMMARY | 2025-05-01 00:08 | XMS_ITS ---
Author Organization [facility] Address [address] [place] [address] Care Team Providers Care Binder Lockstitch Name Role Phone Darin Valles Primary Care Provider + Portillo Maciel MD Unavailable Pradeep Guerra MD Unavailable [phone] Active Problems Problem Noted Date Diagnosed Date [...] (09/28/2021): Added automatically from request for surgery [id number] Abnormal electrocardiogram (ECG) (EKG) Allergic rhinitis 09/07/2021 [...] from the original note were not included. [facility] [address] [place] [address] This Survivorship Care Plan is a cancer [...] Information: Primary Care Physician Darin Valles PA [phone] Surgeon Portillo Maciel MD [phone] Radiation Oncologist No care steam brush operator to display Medical Oncologist No care steam brush operator to display Voice Data Communications Engineer Pradeep Guerra MD [phone] Treatment Summary Cancer Diagnosis Information Diagnosis Malignant [...] Help learning to eat healthier, call the liquid yeast supervisor at: [facility] [facility] . Have an active lifestyle, strive for [...] physician. Resources you may be interested in: [facility] [place] A National Cancer [facility] http://www.[facility]/ [facility] Information Center 1st floor of [facility] [phone]. Computer access, educational material, counseling services (FREE) [employer]: the place for ostomy resources, advocacy, and support. www.ostomy.org The ostomy nurse at [facility] can be reached at [phone] Online Resources: www.cancer.net; http://www.cdc.gov/cancer/survivorship; http://www.cancercare.org/tagged/post-treatment_survivorship; http://www.cancer.gov/about-cancer/coping/survivorship [employer]: https://survivorship.cancer.gov/ an online tool for cancer survivors andcaregivers created by the [employer] and the National Cancer [place]. It provides: Information on dealing with side effects from cancer and treatment Caregivers with support and resources Practical advice about talking to friends and family about cancer Questions to ask their health care team Help understanding their rights in the workplace
--- OUTSIDE RECORDS SUMMARY | 2025-05-01 00:09 | XMS_ITS | Clinical Summary ---
Author Organization [facility] Address [facility] [place] [address] Care Team Providers Care Oil Producer Name Role Phone Darin Valles Primary Care Provider + Portillo Maciel MD Unavailable [phone] Pradeep Guerra MD Unavailable Allergies Active Allergy Reactions Criticality Noted Date Comments Iodinated Contrast Media Unknown 06/10/2021 Medications lamoTRIgine (LaMICtal) 200 mg tabletIndications: Tonic-Clonic Epilepsy Take 200 mg by mouth 2 (two) times a day 1 Active PHENobarbitaL (LUMINAL) 60 mg tabletIndications: seizure disorder Take 64.8 mg by mouth 3 (three) times a day 0 Active cyanocobalamin (Vitamin B-12) 1,000 mcg sublingual tabletIndications: Prevention of Vitamin B12 Deficiency Take 1,000 mcg by mouth 2 (two) times a day Active bisacodyl EC (DULCOLAX EC) 5 mg EC tabletIndications: constipation Take 5 mg by mouth daily as needed Active atorvastatin (LIPITOR) 10 mg tabletIndications: hyperlipidemia Take 10 mg by mouth every morning Active montelukast (SINGULAIR) 10 mg tabletIndications: Seasonal Allergic Rhinitis Take 10 mg by mouth every morning Active cyanocobalamin (Vitamin B-12) 1,000 mcg/mL injectionIndicatio ns:Vitamin B12 Deficiency Inject under the skin every 30 (thirty) days Active medical supply, miscellaneous (MISCELLANEOUS MEDICAL SUPPLY [facility]) nightly HOME OXYGEN AT BEDTIME: 2-3L/NC Active QUEtiapine (SEROquel) 25 mg tablet Take 0.5 tablets (12.5 mg total) by mouth nightly 5 Active acetaminophen 500 mg capsuleIndications :Pain Take 2 capsules (1,000 mg total) by mouth every 6 (six) hours as needed (pain) 5 Active ibuprofen (ADVIL,MOTRIN) 800 mg tablet Take 1 tablet (800 mg total) by mouth 3 (three) times a day as needed for pain 5 Active apixaban (ELIQUIS) 2.5 mg tabletIndications: VTE Prophylaxis Take 1 tablet (2.5 mg total) by mouth 2 (two) times a day 84 tablet 5 Active levETIRAcetam (KEPPRA) 750 mg tablet Take 1 tablet (750 mg total) by mouth 2 (two) times a day 5 Active polyethylene glycol (MIRALAX) 17 gram packetIndications: constipation Take 1 packet (17 g total) by mouth daily 5 Active senna-docusate (PERICOLACE) 8.6-50 mg Take 1 tablet by mouth 2 (two) times a day 5 Active oxyCODONE (ROXICODONE) 5 mg immediate release tabletIndications: Pain Take 1 tablet (5 mg total) by mouth every 4 (four) hours as needed for pain 15 tablet 5 Active Active Problems Problem Noted Date Diagnosed [...] (09/28/2021): Added automatically from request for surgery [id number] Abnormal electrocardiogram (ECG) (EKG) Allergic rhinitis 09/07/2021 [...] Type Department Care Team Description 03/27/2025 Telephone [facility] [address] [place] [address] Mariah Valdes RN 03/02/2025 4:00 AM CDT - 03/06/2025 3:34 PM CDT Hospital Encounter [address] [address] Cleveland Pierce MD Paulsen, MD Jaylene Dove, Joe Cha MD Other closed displaced fracture of proximal end of left humerus, initial encounter (Primary Dx); Closed fracture of left scapula, unspecified part of scapula, initial encounter; Closed fracture of left inferior pubic ramus, initial encounter (HCC); Closed fracture of superior ramus of left pubis, initial encounter (HCC) Discharge Disposition: Discharge to [facility] 02/23/2025 Documentation [facility] 4th Floor [address] [place] [phone] Iveth Pepe MD from Last 3 Months Surgical History Surgery Date Site/Laterality Comments CARDIAC CATHETERIZATION COLON SURGERY 07/24/2021 SIGMOIDOSCOPY 07/23/2021 CHOLECYSTECTOMY 10/29/2021 Medical History Medical History Date Comments COPD (chronic obstructive pulmonary disease) HTN (hypertension) Heart attack (HCC) 2008 Colon cancer (HCC) 04/08/2021 Mild cognitive impairment GERD (gastroesophageal reflux disease) Seizure disorder ([facility]) since age 5 RBBB (right bundle branch block) On home oxygen therapy 2-3L/NC a t night Sleep apnea Family History Medical History Relation Name Comments Stroke Sister Anesthesia problems Neg Hx Relation Name Status Comments Sister Social History Tobacco Use Types Packs/Day Years Used Date Smoking Tobacco: Former Cigarettes Q uit: 2005 Smokeless Tobacco: Never AUDIT-C Answer Date Recorded [...] on file Legal Sex Female 1:50 AM 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 TENDER Gender Identity Not on file Sexual Orientation [...] Visit 65+ 2020 Influenza Vaccine (#1) 2025 , 04/26/2019, 03/28/2018, Additional history exists Fall Risk Assessment 03/06/2026 03/06/2025 Colon Cancer Screening-Colonoscopy 07/23/20312021 Medical Devices Implanted Type Area [employer] Superintendent Device Identifier Shelf Expiration Date Model / Serial / Lot Vesolock [id number] Symmetry Vesolock Large Clip Internal - [id number] - [id number] Implanted:Qty: 2 on 10/29/2021 by Ezequiel Casiano MD PhD at [facility] Clip N/A: Abdomen [employer] 05/11/2024 [id number] / [id number] / [id number] Procedures Procedure Name Priority Date/Time Associated Diagnosis [...] 4:15 AM CDT COLONOSCOPY 07/23/2021 9:14 AM NUB CARD TENDER from Last 3 Months or Most Recently Relevant to Health Maintenance Results * Infection Prevention Sophia auris PCR, surveillance Axilla/Groin (03/06/2025 6:09 PM CDT) Pathologist [facility] Sophia auris DNA Not Detected Not Detected [facility] Comment: Interpretive Data Testing performed by [facility] Molecular Infectious Disease Laboratory using the Jefe rony [id number] Sophia auris assay. This assay detects DNA from Sophia auris using Real-Time PCR. This assay is laboratory developed and is not cleared by the [place] Food and Drug Administration. The performance characteristics have been verified by the [facility] Molecular Infectious Disease Laboratory. Axilla/Groin 03/06/2025 6:09 PM CDT 03/06/2025 6:20 PM CDT Narrative [facility] - 03/07/2025 1:02 AM CDT Order placed by [facility] due to ring surveillance. us Instant Order Generic Provider LAB MICROBIOLOGY - GENERAL ORDERABLES Final Result [facility] Department [place] [address] [facility] * eGFR (03/03/2025 8:06 PM CDT) eGFR [...] MD LAB BLOOD ORDERABLES Roberta bernal Result [facility] [place] [address] * (ABNORMAL) CBC without differential (03/03/2025 8:06 PM CDT) WBC 5.32 3.80 - 9.90 K/cumm Hgb 10.7(L) 11.9 - 15.5 g/dL [facility] Hct 31.9(L) 35.6 - 45.5 % [facility] Plt 199 150 - 400 K/cumm [facility] MPV 10.8 9.1 - 12.3 fL [facility] RBC 3.33(L) 3.90 - 5.20 M/cumm [facility] MCV 95.8 81.3 - 96.4 fL [facility] MCH 32.1 27.1 - 33.3 pg [facility] MCHC 33.5 32.3 - 35.7 g/dL [facility] RDW CV 11.9 11.1 - 14.9 % [facility] RDW SD 41.2 35.7 - 48.1 fL [facility] NRBC abs 0.00 0.00 - 0.01 K/cumm [facility] Blood 03/03/2025 8:06 PM CDT 03/03/2025 9:17 PM CDT Joe Mariee MD LAB BLOOD ORDERABLES Roberta l Result Performing Organization Address City/[facility] Co de Phone Number [facility] Department [place] [address] * (ABNORMAL) Albumin (03/03/2025 8:06 PM CDT) [facility] Albumin 3.2(L) 3.5 - 5.0 g/dL Blood 03/03/2025 8:06 PM CDT 03/03/2025 9:18 PM CDT Niles Albarran MD LAB BLOOD ORDERABLES Roberta l Result Performing Organization Address [facility] Co de Phone Number [facility] [place] [address] * Basic metabolic panel (03/03/2025 8:06 PM CDT) [facility] Sodium 136 135 - 145 mmol/L Potassium, pl 4.0 3.3 - 4.9 mmol/L [facility] Chloride 102 97 - 110 mmol/L [facility] CO2 25 22 - 32 mmol/L [facility] Anion gap 9 2 - 15 mmol/L [facility] BUN 17 6 - 25 mg/dL [facility] Creatinine 0.81 0.60 - 1.10 mg/dL [facility] Glucose 90 70 - 199 mg/dL [facility] Comment: Interpretive Data Fasting glucose >/= 126 [...] 2022. Calcium 9.8 8.5 - 10.3 mg/dL [facility] Blood 03/03/2025 8:06 PM CDT 03/03/2025 9:18 PM CDT Joe Mariee MD LAB BLOOD ORDERABLES Roberta l Result Performing Organization Address City/[facility]/ZIP Co de Phone Number [facility] [place] [address] * ECG 12 lead (03/02/2025 8:08 PM CDT) Pathologist [facility] Ventricular Rate EKG/Min 71 BPM [facility] Atrial Rate 71 BPM [facility] DC-Interval (MSEC) 152 ms [facility] QRS-Interval (MSEC) 144 ms [facility] QT-Interval (MSEC) 442 ms [facility] QTc 480 ms [facility] R [place] 227 degrees [facility] T [place] 67 degrees [facility] Diagnosis Normal sinus rhythm Right bundle branch block , plus right ventricular hypertrophy Abnormal ECG Confirmed by Rahul GRANDE [facility] ([id number]) on 03/05/2025 8:20:01 AM [facility] 03/02/2025 8:08 PM CDT 03/05/2025 8:20 AM CDT Joe Mariee MD ECG ORDERABLES Final Res ult Performing Organization Address City/[facility]/ZIP Co de Phone Number [facility] * CT Pelvis WO Contrast (03/02/2025 [...] it. Electronically signed by: Lashell Card M.D. us Piotr Machuca MD IMG CT PROCEDURES Final Result * XR Pelvis [...] by: Vicente Phillips M.D. Piotr Machuca MD [facility] XR PROCEDURES Final Result * XR Chest [...] Vicente Phillips M.D. Cleveland Pierce MD IMG CT PROCEDURES Final R [...] it. Electronically signed by: Vicente Phillips M.D. us Cleveland Pierce MD IMG XR PROCEDURES Final [...] Cleveland Pierce MD LAB BLOOD ORDERABLES Roberta dolores Result [facility] [place] [address] * Differential, auto (03/02/2025 4:15 AM CDT) Neutrophil abs 5.82 1.50 - 6.50 K/cumm Imm gran abs 0.03 0.00 - 0.10 K/cumm [facility] Lymphocyte abs 1.49 0.80 - 3.30 K/cumm [facility] Monocyte abs 0.80 0.20 - 0.80 K/cumm [facility] Eosinophil abs 0.03 0.00 - 0.50 K/cumm [facility] Basophil abs 0.02 0.00 - 0.10 K/cumm [facility] Neutrophil pct 71.0 % [facility] Comment: Interpretive Data Percent cell count reference ranges are not reported, since discordance with absolute values may lead to misinterpretation of CBC data. Current Interpretive Data was last revised on 2017. Imm gran pct 0.4 % [facility] Comment: Interpretive Data Percent cell count reference ranges are not reported, since discordance with absolute values may lead to misinterpretation of CBC data. Current Interpretive Data was last revised on 2017. Lymphocyte pct 18.2 % [facility] Comment: Interpretive Data Percent cell count reference ranges are not reported, since discordance with absolute values may lead to misinterpretation of CBC data. Current Interpretive Data was last revised on 2017. Monocyte pct 9.8 % [facility] Comment: Interpretive Data Percent cell count reference ranges are not reported, since discordance with absolute values may lead to misinterpretation of CBC data. Current Interpretive Data was last revised on 2017. Eosinophil pct 0.4 % [facility] Comment: Interpretive Data Percent cell count reference ranges are not reported, since discordance with absolute values may lead to misinterpretation of CBC data. Current Interpretive Data was last revised on 2017. Basophil pct 0.2 % [facility] Comment: Interpretive Data Percent cell count reference ranges are not reported, since discordance with absolute values may lead to misinterpretation of CBC data. Current Interpretive Data was last revised on 2017. Blood 03/02/2025 4:15 AM CDT 03/02/2025 4:24 AM CDT Cleveland Pierce MD LAB BLOOD ORDERABLES Roberta l Result [facility] Department [place] [address] * (ABNORMAL) CBC with auto differential (03/02/2025 4:15 AM CDT) WBC 8.19 3.80 - 9.90 K/cumm Hgb 11.4(L) 11.9 - 15.5 g/dL [facility] Hct 34.6(L) 35.6 - 45.5 % [facility] Plt 209 150 - 400 K/cumm [facility] MPV 10.0 9.1 - 12.3 fL [facility] RBC 3.54(L) 3.90 - 5.20 M/cumm [facility] MCV 97.7(H) 81.3 - 96.4 fL [facility] MCH 32.2 27.1 - 33.3 pg [facility] MCHC 32.9 32.3 - 35.7 g/dL [facility] RDW CV 11.8 11.1 - 14.9 % [facility] RDW SD 42.8 35.7 - 48.1 fL [facility] NRBC abs 0.00 0.00 - 0.01 K/cumm [facility] Blood 03/02/2025 4:15 AM CDT 03/02/2025 4:24 AM CDT Cleveland Pierce MD LAB BLOOD ORDERABLES Roberta l Result Performing Organization Address [facility] Co de Phone Number [facility] [place] [address] * (ABNORMAL) aPTT (03/02/2025 4:15 AM CDT) aPTT 24(L) 26 - 38 sec Comment: Interpretive Data Heparin therapeutic range: 66.0 - 100.0 seconds. Range based on correlation with therapeutic heparin activity range of 0.3 - 0.7 Units/mL. Current interpretive data was last revised on 2023. Blood 03/02/2025 4:15 AM CDT 03/02/2025 4:32 AM CDT Cleveland Pierce MD LAB BLOOD ORDERABLES Roberta l Result Performing Organization Address [facility] de Phone Number [facility] [place] [address] * Protime-INR (03/02/2025 4:15 AM CDT) PT 11.3 10.2 - 13.5 sec INR 1.00 0.90 - 1.20 [facility] Comment: Interpretive data Oral anticoagulant therapeutic ranges: Venous thromboembolism prophylaxis or treatment: 2.0-3.0 CARDIOLOGY Standard range: 2.0-3.0 High-intensity range: 2.5-3.5 Refer to indication-specific guidelines for appropriate target ranges for prosthetic heart valve replacement. Current interpretive data was last revised on 2019. Blood 03/02/2025 4:15 AM CDT 03/02/2025 4:32 AM CDT Cleveland Pierce MD LAB BLOOD ORDERABLES Roberta l Result Performing Organization Address [facility] Co de Phone Number [facility] [place] [address] * (ABNORMAL) Basic metabolic panel (03/02/2025 4:15 AM CDT) Sodium 141 135 - 145 mmol/L Potassium, pl 4.5 3.3 - 4.9 mmol/L [facility] Chloride 111(H) 97 - 110 mmol/L [facility] CO2 23 22 - 32 mmol/L [facility] Anion gap 7 2 - 15 mmol/L [facility] BUN 18 6 - 25 mg/dL [facility] Creatinine 0.75 0.60 - 1.10 mg/dL [facility] Glucose 124 70 - 199 mg/dL [facility] Comment: Interpretive Data Fasting glucose >/= 126 [...] 2022. Calcium 9.7 8.5 - 10.3 mg/dL [facility] Blood 03/02/2025 4:15 AM CDT 03/02/2025 4:24 AM CDT Cleveland Pierce MD LAB BLOOD ORDERABLES Roberta bernal Result Performing Organization Address City/State/[facility] Co de Phone Number [facility] [place] [address] * COLONOSCOPY (07/23/2021 9:14 AM NUB CARD TENDER) Anatomical Region Laterality Modality Other Narrative Procedure Note Ashly Sparks MD - 07/23/2021 9:14 AM CST ENDOSCOPY LAB Patient Name: Lluvia Brink Procedure Date: 07/23/2021 9:14 AM Date of : 1955 Admit Type: Outpatient Age: 66 Gender: Female Attending MD: Ashly Sparks M.D. Room: [facility] ENDOSCOPY ROOM 05 Note Status: Finalized Procedure: [...] The scope was passed under direct vision.The [id number] was introduced through the anusand advanced to [...] 0 Note Initiated On: 07/23/2021 9:14 AM Ashly Sparks MD ENDOSCOPY PROCEDURES F inal Result from Last 3 Months or Most Recently Relevant to Health Maintenance Insurance [facility] MEDICARE ADVANTAGE IDPA [facility] MEDICARE ADVANTAGE Advance Directives For more information, please contact: [phone] * Full Code (Latest Code Status on File) Date Activated Date Inactivated Comments 03/02/2025 4:57 PM 03/06/2025 11:28 PM * Full Code Date Activated Date Inactivated Comments 07/23/2021 1:41 PM 07/28/2021 4:41 PM * Full Code Date Activated Date Inactivated Comments 07/23/2021 7:15 AM 07/23/2021 12:29 PM Care Teams Oil Producer Relationship Specialty Start Date End Date Darin Valles PA [address] [place] [address] PCP - General Internal Medicine 05/27/21 Portillo Maciel MD [phone] [place] [address] Surgeon Colon and Rectal Surgery 07/28/21 [place] [id number] [address] [facility] [address] [place] [address] Lumber Stacker Driver Gastroenterology 07/28/21
[2025-05-01] MEDS: SODIUM CHLORIDE 0.9% IV 1,000 ML 999 ML IV CONT (00:38)
[2025-05-01] MEDS: cefTRIAXone 1 GM in SODIUM CHLORIDE 0.9% IV 50 ML 100 ML IVPB (00:38)
[2025-05-01] MEDS: ACETAMINOPHEN 500 MG TABLET 1000 MG PO (00:58)
[2025-05-01] MEDS: levETIRAcetam 1500MG/NACL100ML 1,500 MG/100 ML BAG 400 MG IVPB (00:58)
--- NOTE | 2025-05-01 01:15 | ED.SEIZURE ---
HPI - Seizure General Chief Complaint: Seizure Stated Complaint: SEIZURE W/ H/O EPILEPSY Time Seen by Provider: 05/01/25 00:01 History of Present Illness HPI Narrative: 69-year-old female with history of epilepsy presenting to the emergency department today after a breakthrough seizure that happened at home. Patient states she was in bed and felt like she was about to have a seizure and then did have 1 followed by 2nd one after return to baseline. No further seizure activity. She did not take her nightly Keppra. Her neurologist is currently working with her about titration on multiple medications including taking her off of phenobarbital and she was recently on for long period of time since 9 years old and currently trying to try titrate to higher dose of Keppra. Patient states she has a headache at this time but otherwise no other symptoms. She wanted to get an x-ray of her left shoulder as she recently fractured it verses dislocated in February and was to make sure it is still okay. No new injuries. Denies any chest pain shortness a breath. She is awake alert oriented in acting appropriately. Pleasant and cooperative. Moving all extremities without any sensation or motor deficits. Seizure lasted several minutes according to patient's family report to nursing staff. No recent illnesses otherwise. Related Data Allergies Allergy/AdvReac Type Severity Reaction Status Date / Time iodine Allergy Intermediate Unknown Verified 04/30/25 21:32 Review of Systems Review of Systems: As reviewed above in HPI [facility] Surgical History Surgical History History of ankle surgery Social History Social History Smoking status: Never smoker Exam Narrative: GENERAL: [Well-appearing, well-nourished, and in no acute distress.] HEAD: [Normocephalic, atraumatic.] EYES: [PERRLA and EOMI.] ENT: Nares clear, no rhinorrhea or epistaxis. Mucous membranes moist. NECK: Supple. CHEST: [Clear to auscultation. No respiratory distress.] HEART: [Regular rate and rhythm]. No murmur heard. [Normal peripheral pulses.] ABDOMEN: [Soft, nondistended], [nontender], [No rigidity or guarding] EXTREMITIES: Normal range of motion. [No edema.] SKIN: Warm, dry, no rash. NEURO: [No focal deficits]. Alert and oriented [x3.] PSYCH: [Normal mood and affect.] Course Vital Signs Vital signs: Vital Signs Temperature 37.0 C 04/30/25 21: Pulse Rate 81 04/30/25 21: Respiratory Rate 16 04/30/25 21: Blood Pressure 137/70 04/30/25 21: Pulse Oximetry 98 04/30/25 21: Oxygen Delivery Room Air 04/30/25 21: Temperature 37.0 C 04/30/25: Pulse Rate 79 05/01/25 03:00 Respiratory Rate 17 05/01/25 03:00 Blood Pressure 117/72 05/01/25 03:00 Pulse Oximetry 98 05/01/25 03:00 Oxygen Delivery Room Air 04/30/25 21: MDM - Seizure MDM Narrative Medical decision making narrative: 69-year-old female with history of epilepsy presenting to the emergency department today after a breakthrough seizure that happened at home. Patient states she was in bed and felt like she was about to have a seizure and then did have 1 followed by 2nd one after return to baseline. No further seizure activity. She did not take her nightly Keppra. Her neurologist is currently working with her about titration on multiple medications including taking her off of phenobarbital and she was recently on for long period of time since 9 years old and currently trying to try titrate to higher dose of Keppra. Patient states she has a headache at this time but otherwise no other symptoms. She wanted to get an x-ray of her left shoulder as she recently fractured it verses dislocated in February and was to make sure it is still okay. No new injuries. Denies any chest pain shortness a breath. She is awake alert oriented in acting appropriately. Pleasant and cooperative. Moving all extremities without any sensation or motor deficits. Seizure lasted several minutes according to patient's family report to nursing staff. No recent illnesses otherwise. Patient is overall well-appearing. Normal mental status and at baseline. Hemodynamically stable without any tachycardia, fever, hypoxemia or blood pressure concerns. No physical exam findings of traumatic injury or infection. Given her age and risk factors a CT of the head and laboratory studies were obtained as well as a chest x-ray and shoulder x-ray patient's request. Urinalysis ordered at this time. Patient given a nightly dose of her 1500 Keppra IV push at this time. A fluid bolus initiated as well. Lactic acid drawn. Patient's x-rays were independently reviewed and she does still have a left proximal humerus fracture. She is aware of this from her previous injury and is supposed to be wearing a sling. She has follow-up already for this. Old fracture apparent on the x-ray confirmed by Radiology. CT of the the head shows no acute intracranial hemorrhage midline shift or mass effect. Laboratory studies showed no leukocytosis or anemia. Normal platelet count. Electrolytes are unremarkable. Normal GFR, normal glucose. Negative lactic acid. Mildly elevated alk-phos otherwise unremarkable LFTs. Urinalysis shows white blood cells and 4+ bacteria with leukocyte esterase concerning for infection which could lower her seizure threshold and be with reason she has a breakthrough today in addition to her recent medication changes. She was given Rocephin for this and will be sent home with oral antibiotics. Patient was observed here for several hours without any further seizure activity. Given a load of her nightly Keppra and antibiotics. Family will be contacted for discharge and will be sent home with antibiotics and Neurology follow-up instructions. Patient questions answered and she was safe for discharge. Medical Records Attestation: I reviewed the patient's medical records. Lab Data Attestation: I reviewed the patient's lab results. 04/30/25 21:47 04/30/25 21:47 Labs: Lab Results 04/30/25 04/30/25 04/30/25 Range/Units 21:47 23:10 23:23 WBC 5.8 (4.5-10.0) K/mm3 RBC 4.61 (4.2-5.4) M/mm3 Hgb 14.2 (12.0-15.0) g/dL Hct 42.5 (37.0-47.0) % MCV 92.2 (80-100) fl MCH 30.8 (26-34) pg MCHC 33.4 (32-36) g/dl RDW 11.8 (11.5-14.5) % Plt Count 221 (150-375) k/mm3 MPV 9.9 (7.4-10.4) fl Immature Gran % (Auto) 0.3 (0-0.5) % Neut % (Auto) 46.9 (45.5-73.1) % Lymph % (Auto) 39.6 (18.3-44.2) % [place] % (Auto) 8.4 (2.6-8.5) % Eos % (Auto) 4.3 (0-4.4) % Baso % (Auto) 0.5 (0.2-1.2) % Lymph # (Auto) 2.30 (0.9-3.2) K/mm3 [place] # (Auto) 0.5 (0.1-0.6) K/mm3 Eos # (Auto) 0.3 (0-0.3) K/mm3 Baso # (Auto) 0.0 (0.0-0.1) K/mm3 Abs Immat Gran (auto) 0.02 (0.00-0.031) K/mm3 Absolute Neuts (auto) 2.7 (1.3-6.7) K/mm3 Absolute Nucleated RBC 0.000 (0.0-0.012) K/mm3 Nucleated RBC % 0.0 (0.0-0.2) % Sodium 140 (137-145) mmol/L Potassium 3.4 (3.4-5.0) mmol/L Chloride 106 (98-107) mmol/L Carbon Dioxide 24 (22-30) mmol/L Anion Gap 10 (4-12) mmol/L BUN 11 (7-17) mg/dL Creatinine 0.71 (0.7-1.0) mg/dL Estim Creat Clear Calc 65 ml/min Estimated GFR > 60 (59 - ) Glucose 131 H (65-110) mg/dL Lactic Acid 1.9 (0.7-2.0) mmol/L Calcium 10.2 (8.4-10.2) mg/dL Total Bilirubin 0.4 (0.2-1.3) mg/dL AST 22 (14-36) U/L ALT 20 (6-35) U/L Alkaline Phosphatase 328 H (38-126) U/L Total Protein 7.1 (6.3-8.2) g/dL Albumin 4.0 (3.5-5.1) g/dL Urine Color Yellow (Yellow) Urine Appearance Turbid H (Clear) Urine pH 7.0 (5.0-9.0) Ur Specific [place] 1.023 (1.001-1.035) Urine Protein 1+ H (Negative) mg/dL Urine Glucose (UA) Negative (Negative) mg/dL Urine Ketones Trace H (Negative) mg/dL Ur Blood (Man) Negative (Negative) Urine Nitrate Negative (Negative) Urine Bilirubin Negative (Negative) Urine Urobilinogen 1.0 (<2.0) mg/dL Leukocyte Esterase Rfl 2+ H (Negative) JOSE ALEJANDRO/UL Urine RBC 0-2 (0-2) /hpf Urine WBC 21-50 H (0-3) /hpf Ur Squamous Epith Cells Occasional (Few) /hpf Urine Bacteria 4+ /hpf Urine Casts 0-2 Levetiracetam Pending Imaging Data Attestation: I personally reviewed and interpreted this imaging study as follows: My impression: Old left proximal humerus fracture, CT head unremarkable. Discharge Plan Discharge Clinical Impression: Breakthrough seizure, Urinary tract infection, Non-healing fracture Patient Disposition: Home Condition: Stable Instructions: Antibiotic Form, Epilepsy (ED), Proximal Humerus Fracture (ED), Urinary Tract Infection in Older Adults (ED) Additional Instructions: Your laboratory studies do show a urinary tract infection. Your other laboratory studies are all reassuring and unremarkable. The UTI can lower your seizure threshold and cause a breakthrough seizure specially on somebody that is having medication changes as well. CT scans do not show any intracranial process. X-ray shows a fracture of the proximal humerus which is not fully healing at this time. Maintain the sling and follow-up with orthopedics for further recommendations. Follow-up with your neurologist regarding medication changes as warranted and complete the antibiotics for the next 7 days. Return with any were current seizures or new emergent concerns. Patient Language: Bengali Prescriptions: New cefuroxime axetil 500 mg tablet 500 mg PO Q12H 7 Days Qty: 14 0RF No Action atorvastatin 10 mg tablet 10 mg PO DAILY Qty: 30 3RF levetiracetam [Keppra XR] 500 mg tablet extended release 24 hr 1,500 mg PO DAILY Qty: 90 6RF Rx Instructions: start with 1 tablet at bedtime for 2 weeks and then 2 tablets at bedtime for 2 weeks and then 3 tablets to continue lamotrigine 200 mg tablet See Rx Instructions .ROUTE .COMPLEX Qty: 120 0RF Dose Instruction: TAKE 2 TABLET BY MOUTH TWICE DAILY Rx Instructions: TAKE 2 TABLET BY MOUTH TWICE DAILY phenobarbital 60 mg tablet 60 mg PO Q8H Qty: 90 2RF Follow-up/Referrals: PHYSICIAN,INVESTIGATOR [employer] [Primary Care Provider, Internal Medicine] Time of Disposition: 02:44
[2025-05-01 01:28] VITALS: BP 156/65; PULSE 87; RESP 20; O2SAT 98
[2025-05-01 03:00] VITALS: BP 117/72; PULSE 79; RESP 17; O2SAT 98
--- NOTE | 2025-05-01 03:01 | PC.NURSE ---
This RN attempted to call pts daughter for a ride, as requested. No answer at this time. Called Gauri (in patients contact) at [phone].
--- NOTE | 2025-05-01 04:02 | PC.NURSE ---
This RN attempted to call Crystal in contacts for a ride home, no answer at this time.
--- NOTE | 2025-05-01 04:57 | PC.NURSE ---
-This RN attempted to call pts contact for a ride, no answer (Gauri, daughter pt lives w/ at [phone]). This RN attempted to call pts personal cell phone at [phone], pt states the family took her phone home to charge it. When called, the phone is disconnected/no longer in service.
--- NOTE | 2025-05-01 06:51 | PC.NURSE ---
This RN called Gauri in attempt to get pt a ride home, LMTCB w/ no answer.
--- NOTE | 2025-05-01 08:00 | PC.NURSE ---
This RN attempted to reach Gauri, pt's daughter and person to notify for transportation. No answer, message left.
--- NOTE | 2025-05-01 08:49 | PC.NURSE ---
Per charge master specialist, non emergent police was contacted for welfare check on pt daughter home due to multiple unanswered phone calls with messages after pt daughter reported she would be available for transportation upon discharge.
== END 2025-05-01 09:35 | disposition home or self-care (01) ==
PROVIDERS: Student in an Organized Health Care Education/Training Program; Emergency Provider Student in an Organized Health Care Education/Training Program
DX: G40.909 Epilepsy, unspecified, not intractable, without status epilepticus (principal); N39.0 Urinary tract infection, site not specified; S42.212G Unspecified displaced fracture of surgical neck of left humerus, subsequent encounter for fracture with delayed healing; I45.10 Unspecified right bundle-branch block; I51.7 Cardiomegaly; X58.XXXD Exposure to other specified factors, subsequent encounter
CPT/HCPCS: 36415; 70450; 73030; 80053; 81001; 83605; 85025; 87086; 93005; 96365; 96375; 99284; A9270; J0696; J1953; J7030

== ENCOUNTER 2025-05-02 10:14 | Emergency (ER) | payer MEDICARE, MEDICAID, SELFPAY ==
[2025-05-02] VITALS (12 sets, daily range): BP systolic 131–139; BP diastolic 74–81; PULSE 73–90; RESP 10–20; TEMP 36.9; O2SAT 92–98
--- NOTE | ~2025-05-02 | XR_ITS ---
EXAMINATION: XR chest 1V portable COMPARISON: No comparisons available. HISTORY: seizure FINDINGS: The lungs are clear, no effusion. No pneumothorax. Heart is normal size. Mediastinal and hilar contours are within normal limits. Healing fracture of the left humeral neck Miscellaneous: None Impression: No acute cardiopulmonary abnormality. Reviewed, dictated and finalized at location P. Impression: No acute cardiopulmonary abnormality.
--- NOTE | 2025-05-02 10:37 | ED.GENADULT ---
HPI - General Adult General Chief complaint: Seizure Stated complaint: seizure Time Seen by Provider: 05/02/25 10:36 History of Present Illness HPI narrative: This is a 69-year-old female with history of seizures who is being weaned off her phenobarbital presenting for breakthrough seizure. She has seen our emergency department 2 days ago for similar presentation. That time she was diagnosed with the UTI and discharged home. She had another seizure this morning at the senior care she was sent to the ER for re-evaluation. Patient does not remember what happened. She has no physical complaints at this time. She has been taking antibiotics as instructed. Neurologist Dr. Sanders Related Data Allergies Allergy/AdvReac Type Severity Reaction Status Date / Time iodine Allergy Intermediate Unknown Verified 04/30/25 21:32 [facility] Surgical History Surgical History History of ankle surgery Social History Social History Smoking status: Never smoker Exam Narrative: APPEARANCE: No apparent distress. Head: atraumatic. EYES: EOMI, POERL NOSE: Atraumatic NECK: Trachea midline RESPIRATORY: No increased rate of breathing clear auscultation CARDIOVASCULAR: RRR, no peripheral edema ABDOMINAL: Non-distended soft nontender MUSCULOSKELETAl: No obvious deformities head to toe trauma exam performed with no areas of pain or injury NEURO: Alert. Moving 4/4 extremities SKIN:: Warm, dry. Normal color PSYCHIATRIC: Normal affect Course Vital Signs Vital signs: Vital Signs Temperature 98.4 F 05/02/25 10:17 Pulse Rate 90 05/02/25 10:17 Respiratory Rate 18 05/02/25 10:17 Blood Pressure 139/81 05/02/25 10:17 Pulse Oximetry 97 05/02/25 10:17 Temperature 98.4 F 05/02/25 10:17 Pulse Rate 85 05/02/25 12:09 Respiratory Rate 14 05/02/25 12:09 Blood Pressure 137/79 05/02/25 12:09 Pulse Oximetry 98 05/02/25 12:09 Medical Decision Making MDM Narrative Medical decision making narrative: -Course: 69-year-old female history of epilepsy presenting for breakthrough seizure. Workup was unremarkable. Urine with signs of infection but she is already on antibiotics. Cultures have not resulted yet so we will keep her under current regiment. Case was discussed with Dr. Sanders who recommended we put her back on phenobarb is that appear to control her seizures fairly well. She was loaded the phenobarb and discharged to follow-up Dr. Sanders. -DDX includes but is not limited to: Breakthrough seizure, medication noncompliance, infection Vital Signs Vital Signs: Vital Signs Temperature 98.4 F 05/02/25 10:17 Pulse Rate 90 05/02/25 10:17 Respiratory Rate 18 05/02/25 10:17 Blood Pressure 139/81 05/02/25 10:17 Pulse Oximetry 97 05/02/25 10:17 Temperature 98.4 F 05/02/25 10:17 Pulse Rate 85 05/02/25 12:09 Respiratory Rate 14 05/02/25 12:09 Blood Pressure 137/79 05/02/25 12:09 Pulse Oximetry 98 05/02/25 12:09 Lab Data 05/02/25 11:18 05/02/25 11:18 Labs: Lab Results 05/02/25 05/02/25 05/02/25 Range/Units 11:18 11:23 12:13 WBC 7.7 (4.5-10.0) K/mm3 RBC 4.46 (4.2-5.4) M/mm3 Hgb 13.7 (12.0-15.0) g/dL Hct 41.0 (37.0-47.0) % MCV 91.9 (80-100) fl MCH 30.7 (26-34) pg MCHC 33.4 (32-36) g/dl RDW 11.9 (11.5-14.5) % Plt Count 208 (150-375) k/mm3 MPV 10.0 (7.4-10.4) fl Immature Gran % (Auto) 0.3 (0-0.5) % Neut % (Auto) 73.8 H (45.5-73.1) % Lymph % (Auto) 17.2 L (18.3-44.2) % [place] % (Auto) 5.8 (2.6-8.5) % Eos % (Auto) 2.6 (0-4.4) % Baso % (Auto) 0.3 (0.2-1.2) % Lymph # (Auto) 1.33 (0.9-3.2) K/mm3 [place] # (Auto) 0.5 (0.1-0.6) K/mm3 Eos # (Auto) 0.2 (0-0.3) K/mm3 Baso # (Auto) 0.0 (0.0-0.1) K/mm3 Abs Immat Gran (auto) 0.02 (0.00-0.031) K/mm3 Absolute Neuts (auto) 5.7 (1.3-6.7) K/mm3 Absolute Nucleated RBC 0.000 (0.0-0.012) K/mm3 Nucleated RBC % 0.0 (0.0-0.2) % Sodium 139 (137-145) mmol/L Potassium 3.6 (3.4-5.0) mmol/L Chloride 105 (98-107) mmol/L Carbon Dioxide 27 (22-30) mmol/L Anion Gap 7 (4-12) mmol/L BUN 10 (7-17) mg/dL Creatinine 0.62 L (0.7-1.0) mg/dL Estim Creat Clear Calc 75 ml/min Estimated GFR > 60 (59 - ) Glucose 96 (65-110) mg/dL POC Capillary Glucose 93 (65-105) mg/dl Lactic Acid 1.1 (0.7-2.0) mmol/L Calcium 10.2 (8.4-10.2) mg/dL Total Bilirubin 0.4 (0.2-1.3) mg/dL AST 20 (14-36) U/L ALT 14 (6-35) U/L Alkaline Phosphatase 368 H (38-126) U/L Total Protein 7.0 (6.3-8.2) g/dL Albumin 3.8 (3.5-5.1) g/dL Urine Color Yellow (Yellow) Urine Appearance Clear (Clear) Urine pH 5.5 (5.0-9.0) Ur Specific [place] 1.020 (1.001-1.035) Urine Protein 2+ H (Negative) mg/dL Urine Glucose (UA) Negative (Negative) mg/dL Urine Ketones Trace H (Negative) mg/dL Ur Blood (Man) Trace (Negative) Urine Nitrate Negative (Negative) Urine Bilirubin Negative (Negative) Urine Urobilinogen 0.2 (<2.0) mg/dL Leukocyte Esterase Rfl Trace H (Negative) JOSE ALEJANDRO/UL Urine RBC 0-2 (0-2) /hpf Urine WBC 6-10 H (0-3) /hpf Ur Squamous Epith Cells Occasional (Few) /hpf Urine Bacteria None seen /hpf Urine Casts 0-2 Levetiracetam Pending Influenza A (RT-PCR) Negative (Negative) Influenza B (RT-PCR) Negative (Negative) RSV (RT-PCR) Negative (Negative) SARS-CoV-2 RNA (RT-PCR) Negative (Negative) Discharge Plan Discharge Clinical Impression: Seizure disorder Patient Disposition: Home Condition: Stable Instructions: Antibiotic Form, Epilepsy (ED) Additional Instructions: You were seen in the emergency department for seizures. Please resume your phenobarb 60 mg p.o. 3 times daily. Please follow-up with Dr. Boudreaux in the next 3-5 days. If you develop any new or worsening symptoms return to the ED for re-evaluation. Patient Language: Upper Sorbian Prescriptions: New phenobarbital 60 mg tablet 60 mg PO TID 14 Days Qty: 42 0RF No Action atorvastatin 10 mg tablet 10 mg PO DAILY Qty: 30 3RF levetiracetam [Keppra XR] 500 mg tablet extended release 24 hr 1,500 mg PO DAILY Qty: 90 6RF Rx Instructions: start with 1 tablet at bedtime for 2 weeks and then 2 tablets at bedtime for 2 weeks and then 3 tablets to continue cefuroxime axetil 500 mg tablet 500 mg PO Q12H 7 Days Qty: 14 0RF lamotrigine 200 mg tablet See Rx Instructions .ROUTE .COMPLEX Qty: 120 0RF Dose Instruction: TAKE 2 TABLET BY MOUTH TWICE DAILY Rx Instructions: TAKE 2 TABLET BY MOUTH TWICE DAILY phenobarbital 60 mg tablet 60 mg PO Q8H Qty: 90 2RF Follow-up/Referrals: Jin aSnders MD [Physician, Neurology] - 3 Days Referral Note: epilepsy PHYSICIAN,HOSE HANDLER [Primary Care Provider, Internal Medicine]
[2025-05-02 11:27] LABS: Hematocrit 41.0 % (37.0-47.0); Hemoglobin 13.7 g/dL (12.0-15.0); Immature Granulocyte Percent A 0.3 % (0-0.5); Lymphocytes Absolute Auto 1.33 K/mm3 (0.9-3.2); Mean Corpuscular HGB Conc 33.4 g/dl (32-36); Mean Corpuscular Hemoglobin 30.7 pg (26-34); Mean Corpuscular Volume 91.9 fl (80-100); Nucleated Red Blood Cells Absolute Auto 0.000 K/mm3 (0.0-0.012); Nucleated Red Blood Cells Perc 0.0 % (0.0-0.2); Platelet Count Result 208 k/mm3 (150-375); Red Blood Count 4.46 M/mm3 (4.2-5.4); White Blood Count 7.7 K/mm3 (4.5-10.0)
[2025-05-02 11:38] LABS: Alanine Aminotransferase 14 U/L (6-35); Albumin Level 3.8 g/dL (3.5-5.1); Alkaline Phosphatase 368 U/L (38-126); Anion Gap 7 mmol/L (4-12); Aspartate Amino Transferase 20 U/L (14-36); Bilirubin,Total 0.4 mg/dL (0.2-1.3); Blood Urea Nitrogen 10 mg/dL (7-17); Calcium 10.2 mg/dL (8.4-10.2); Carbon Dioxide 27 mmol/L (22-30); Chloride 105 mmol/L (98-107); Estimated CRCL calculation 75 ml/min; Estimated Glomerular Filt Rate > 60; Glucose 96 mg/dL (65-110); Potassium 3.6 mmol/L (3.4-5.0); Sodium 139 mmol/L (137-145); Total Protein 7.0 g/dL (6.3-8.2)
[2025-05-02 12:03] LABS: Influenza A QL RT-PCR Negative (Negative); Influenza B QL RT-PCR Negative (Negative); RSV RNA, RT-PCR Negative (Negative); SARS-CoV-2 RNA PCR Negative (Negative)
[2025-05-02] MEDS: levETIRAcetam 1500MG/NACL100ML 1,500 MG/100 ML BAG 400 MG IVPB (12:09)
--- OUTSIDE RECORDS SUMMARY | 2025-05-02 12:19 | XMS_ITS | Clinical Summary ---
Author Organization [facility] [employer] Address [address] [place] [address] Care Team Providers Care Cytotechnologist Name Role Phone Maurice Link MD Primary Care Provider [phone] Yennifer Lynna TELEVISION NEWS VIDEO EDITOR-DOMAIN ARCHITECT Unavailable [phone] Source Comments [facility] [employer],non-owned Affiliates and Associated Physician Practices is amultiple site organization consisting of ambulatory clinics and hospital sitesin [place], [place], [place] and [place]. This disclosure is being madepursuant to the Care Everywhere program and may not contain all information available regarding this patient. Last updated 18.[facility] [employer] Allergies No known active allergies Medications * [...] [facility] - Care Coordination [address] [place] [phone] Karlie Colmenares Outreach Preventive Care 04/17/2025 Patient Outreach [facility] - Care Coordination [address] [place] [phone] Dedra Karlie N Outreach Preventive Care from [...] Recorded Patient Health Questionnaire-2 Score 0 07/27/2024 [facility] of Occupat ional Health - Occupational Stress [...] place to sleep or slept in a group home (including now)? No 04/06/2024 Comments Unknown Sex and Gender Information Value Date Recorded Sex Assigned at Not on file Legal Sex Female 1:57 PM TOOLING MECHANIC Gender Identity Not on file Sexual Orientation Not on file Last Filed Vital Signs Vital Sign Reading Time Taken Comments Blood Pressure 121/71 05/14/2024 12:12 PM TOOLING MECHANIC Pulse 74 05/14/2024 12:12 PM TOOLING MECHANIC Temperature 36.2 C (97.2 F) 05/14/2024 12:12 PM TOOLING MECHANIC Respiratory Rate 20 05/14/2024 12:12 PM TOOLING MECHANIC Oxygen Saturation 94% 05/14/2024 12:12 PM TOOLING MECHANIC Inhaled Oxygen Concentration - - Weight 88 kg (194 lb) 07/27/2024 9:25 AM TOOLING MECHANIC Height 172.7 cm (5' 8) 07/27/2024 9:25 AM TOOLING MECHANIC Body Mass Index 29.5 07/27/2024 9:25 AM TOOLING MECHANIC Plan of Treatment Health Maintenance Due Date [...] Safe discharge Medical Devices Implanted Type Area Triage Assistant Device Identifier Shelf Expiration Date Model / Serial / Lot Screw 2.7mm 2.1mm 14mm T8 Slf-Tap Lck Implanted:Qty: 2 on 04/09/2024 by Nacho Zavaleta DO at [facility] Right: Ankle Synthes [facility] [id number] / / 3.5 Mm Locking Screws Self Tapping With Start Drive Recess 85mm Implanted:Qty: 1 on 04/09/2024 by Sathish Park MD at [facility] Right: Ankle 204.885 / / Screw 3.5mm 2.9mm 14mm T15 Ft Slf-Tap Implanted:Qty: 1 on 04/09/2024 by Sathish Park MD at [facility] Right: Ankle Synthes [employer] 212.103 / / Plate 7 Hl Fib Rt Dist Lat 125mm Contr Implanted:Qty: 1 on 04/09/2024 by Sathish Park MD at [facility] Right: Ankle Synthes [employer] [id number] / / Plate 3 Hl Shrp Hk Lopro Precontr Fib Implanted:Qty: 1 on 04/09/2024 by Sathish Park MD at [facility] Right: Ankle Synthes [employer] 02.113.103S / / Screw 2.7mm 2.1mm 16mm T8 Slf-Tap Lck Implanted:Qty: 2 on 04/09/2024 by Nacho Zavaleta DO at [facility] Right: Ankle Synthes [employer] 202.216 / / Screw 2.7mm 2.1mm 18mm T8 Slf-Tap Lck Implanted:Qty: 3 on 04/09/2024 by Nacho Zavaleta DO at [facility] Right: Ankle Synthes [employer] 202.218 / / Screw 3.5mm 6mm 14mm Ft Lawson Slf-Tap Sm Implanted:Qty: 2 on 04/09/2024 by Nacho Zavaleta DO at [facility] Right: Ankle Synthes [employer] 204.814 / / Screw 3.5mm 6mm 38mm 2.5mm Ft Slf-Tap Implanted:Qty: 1 on 04/09/2024 by Nacho Zavaleta DO at [facility] Right: Ankle Synthes [employer] 204.838 / / Screw 3.5mm 6mm 50mm Slf-Tap Sm Hex Sckt Implanted:Qty: 1 on 04/09/2024 by Nacho Zavaleta DO at [facility] Right: Ankle Synthes [employer] 204.850 / / Screw 3.5mm 6mm 55mm 2.5mm Ft Slf-Tap Implanted:Qty: 1 on 04/09/2024 by Nacho Zavaleta DO at [facility] Right: Ankle Synthes [employer] 204.855 / / Screw 3.5mm 6mm 44mm 2.5mm Ft Slf-Tap Implanted:Qty: 1 on 04/09/2024 by Nacho Zavaleta DO at [facility] Right: Ankle Synthes [employer] 204.844 / / Explanted Type Area Triage Assistant Device Identifier Shelf Expiration Date Model / Serial / Lot Screw 3.5mm 6mm 95mm Ft Lawson Slf-Tap Sm Explanted:Qty: 1 on 04/09/2024 by Sathish Park MD at [facility] Right: Ankle Synthes [employer] 204.895 / / Procedures Procedure Name Priority Date/Time Associated Diagnosis Comments RENAL FUNCTION PANEL Routine 04/11/2024 2:41 AM CDT from Last 3 Months or Most Recently Relevant to Health Maintenance Results * (ABNORMAL) RENAL FUNCTION PANEL (04/11/2024 2:41 AM CDT) BUN 9 7 - 26 mg/dL 04/11/2024 4:09 AM [facility] Creatinine 0.76 0.56 - 0.96 mg/dL 04/11/2024 4:09 AM [facility] Sodium 137 136 - 145 mmol/L 04/11/2024 4:09 AM [facility] Potassium 3.6 3.5 - 4.5 mmol/L 04/11/2024 4:09 AM [facility] Chloride 107 98 - 107 mmol/L 04/11/2024 4:09 AM [facility] CO2 23 22 - 29 mmol/L 04/11/2024 4:09 AM [facility] Glucose 98 70 - 115 mg/dL 04/11/2024 4:09 AM [facility] Albumin 2.6(L) 3.4 - 5.0 g/dL 04/11/2024 4:09 AM [facility] Calcium 9.5 8.4 - 10.2 mg/dL 04/11/2024 4:09 AM [facility] Phosphorus 2.3(L) 2.9 - 5.1 mg/dL 04/11/2024 4:09 AM [facility] Anion Gap 7 6 - 16 04/11/2024 4:09 AM [facility] BUN/Creatinine Ratio 12 7 - 23 04/11/2024 4:09 AM [facility] Osmolality Calculated 283 275 - 295 mOsm/kg 04/11/2024 4:09 AM [facility] eGFR by CKD-EPI 85(L) >=90 mL/min/1.7 3 m2 04/11/2024 4:09 AM [facility] Blood BLOOD SPECIMEN / Unknown Lab Venipuncture / Unknown 04/11/2024 2:41 AM CDT 04/11/2024 3:39 AM CDT us José Miguel Philip MD LAB - CHEMISTRY ORDERABLES F inal Result [facility] [address] [place] [address], [facility] [phone] from Last 3 Months or Most Recently Relevant to Health Maintenance Insurance [facility] MEDICARE MEDICARE Advance Directives * Full Code (Latest Code Status on File) Date Activated Date Inactivated Comments 04/06/2024 4:50 PM 04/11/2024 6:45 PM * Full Code Date Activated Date Inactivated Comments 06/26/2021 5:21 PM 07/01/2021 2:25 PM Care Teams Cytotechnologist Relationship Specialty Start Date End Date Maurice Link MD [address] [place] [address] PCP - General Internal Medicine 07/27/24 America Ly APRN-DOMAIN ARCHITECT [address] [place] [id number] PCP - Attributed-[facility] 02/08/25
--- OUTSIDE RECORDS SUMMARY | 2025-05-02 12:19 | XMS_ITS ---
Author Organization [facility] Address [address] [place] [address] Care Team Providers Care Ecologist Technician Name Role Phone Maurice Link MD Primary Care Provider America Ly HAND PACKER-BLEND TECHNICIAN Unavailable [phone] Active Problems Problem Noted Date Diagnosed Date [...]
--- OUTSIDE RECORDS SUMMARY | 2025-05-02 12:19 | XMS_ITS | Clinical Summary ---
Author Organization [facility] Address Counts include 234 beds at the [facility] [place] [address] Care Team Providers Care Rehab Specialist Name Role Phone Darin Valles Primary Care Provider + Portillo Maciel MD Unavailable [phone] Pradeep Guerra MD Unavailable [phone] Allergies Active Allergy Reactions Criticality Noted Date [...] Active medical supply, miscellaneous (MISCELLANEOUS MEDICAL SUPPLY [facility]) nightly HOME OXYGEN AT BEDTIME: 2-3L/NC Active [...] (09/28/2021): Added automatically from request for surgery [id number] Abnormal electrocardiogram (ECG) (EKG) Allergic rhinitis 09/07/2021 [...] Description 03/27/2025 Telephone [facility] [address] [place] [address] Mariah Valdes RN 03/02/2025 4:00 AM CDT - 03/06/2025 3:34 PM CDT Hospital Encounter [address] [phone] Cleveland Pierce MD Paulsen, MD Jaylene Dove, Joe Cha MD Other closed displaced fracture of proximal end of left humerus, initial encounter (Primary Dx); Closed fracture of left scapula, unspecified part of scapula, initial encounter; Closed fracture of left inferior pubic ramus, initial encounter (HCC); Closed fracture of superior ramus of left pubis, initial encounter (HCC) Discharge Disposition: Discharge to [facility] 02/23/2025 Documentation Specialty Care Clinic [facility] 4th Floor [address] [place] [phone] Iveth Pepe MD from Last 3 Months Surgical History Surgery Date Site/Laterality Comments CARDIAC CATHETERIZATION COLON SURGERY 07/24/2021 SIGMOIDOSCOPY 07/23/2021 CHOLECYSTECTOMY 10/29/2021 Medical History Medical History Date Comments COPD (chronic obstructive pulmonary disease) HTN (hypertension) Heart attack (HCC) 2008 Colon cancer (HCC) 04/08/2021 Mild cognitive impairment GERD (gastroesophageal reflux disease) Seizure disorder ([facility]) since age 5 RBBB (right bundle branch [...] on file 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 Gender Identity Not on file Sexual Orientation [...] Screening-Colonoscopy 07/23/20312021 Medical Devices Implanted Type Area Stucco Worker Device Identifier Shelf Expiration Date Model / Serial / Lot Vesolock [id number] Symmetry Vesolock Large Clip Internal - [id number] - [id number] Implanted:Qty: 2 on 10/29/2021 by Ezequiel Casiano MD PhD at [facility] Clip N/A: Abdomen [employer] 05/11/2024 [id number] / [id number] / [id number] Procedures Procedure Name Priority Date/Time Associated Diagnosis [...] 4:15 AM CDT COLONOSCOPY 07/23/2021 9:14 AM DEPUTY BRAND INSPECTOR from Last 3 Months or Most Recently Relevant to Health Maintenance Results * Infection Prevention Sophia auris PCR, surveillance Axilla/Groin (03/06/2025 6:09 PM CDT) Pathologist [facility] Sophia auris DNA Not Detected Not Detected [facility] Comment: Interpretive Data Testing performed by [facility] using the Jefe rony 6800 Sophia auris assay. This assay detects DNA from Sophia auris using Real-Time PCR. This assay is laboratory developed and is not cleared by the [place] Food and Drug Administration. The performance characteristics have been verified by the [facility]. Axilla/Groin 03/06/2025 6:09 PM CDT 03/06/2025 6:20 PM CDT Narrative HILDA [facility] - 03/07/2025 1:02 AM CDT Order placed by [facility] due to ring surveillance. us Instant Order Generic Provider LAB MICROBIOLOGY - GENERAL ORDERABLES Final Result HILDA [facility] Department [place] [address] [facility] * eGFR (03/03/2025 8:06 PM CDT) [...] MD LAB BLOOD ORDERABLES Roberta bernal Result [facility] Department [place] [address] * (ABNORMAL) CBC without differential (03/03/2025 8:06 PM CDT) WBC 5.32 3.80 - 9.90 K/cumm Hgb 10.7(L) 11.9 - 15.5 g/dL [facility] Hct 31.9(L) 35.6 - 45.5 % [facility] Plt 199 150 - 400 K/cumm [facility] MPV 10.8 9.1 - 12.3 fL [facility] RBC 3.33(L) 3.90 - 5.20 M/cumm [facility] MCV 95.8 81.3 - 96.4 fL [facility] MCH 32.1 27.1 - 33.3 pg [facility] MCHC 33.5 32.3 - 35.7 g/dL [facility] RDW CV 11.9 11.1 - 14.9 % [facility] RDW SD 41.2 35.7 - 48.1 fL [facility] NRBC abs 0.00 0.00 - 0.01 K/cumm [facility] Blood 03/03/2025 8:06 PM CDT 03/03/2025 9:17 PM CDT Joe Mariee MD LAB BLOOD ORDERABLES Roberta l Result Performing Organization Address City/[facility] Co de Phone Number [facility] Department [place] [address] * (ABNORMAL) Albumin (03/03/2025 8:06 PM CDT) [facility] Albumin 3.2(L) 3.5 - 5.0 g/dL Blood 03/03/2025 8:06 PM CDT 03/03/2025 9:18 PM CDT Niles Albarran MD LAB BLOOD ORDERABLES Roberta l Result Performing Organization Address [facility] Co de Phone Number [facility] [place] [address] * Basic metabolic panel (03/03/2025 8:06 PM CDT) [facility] Sodium 136 135 - 145 mmol/L Potassium, pl 4.0 3.3 - 4.9 mmol/L [facility] Chloride 102 97 - 110 mmol/L [facility] CO2 25 22 - 32 mmol/L [facility] Anion gap 9 2 - 15 mmol/L [facility] BUN 17 6 - 25 mg/dL [facility] Creatinine 0.81 0.60 - 1.10 mg/dL [facility] Glucose 90 70 - 199 mg/dL [facility] Comment: Interpretive Data Fasting glucose >/= [...] 2022. Calcium 9.8 8.5 - 10.3 mg/dL [facility] Blood 03/03/2025 8:06 PM CDT 03/03/2025 9:18 PM CDT Joe Mariee MD LAB BLOOD ORDERABLES Roberta l Result Performing Organization Address City/[facility]/ZIP Co de Phone Number [facility] [place] [address] * ECG 12 lead (03/02/2025 8:08 PM CDT) Pathologist [facility] Ventricular Rate EKG/Min 71 BPM [facility] Atrial Rate 71 BPM [facility] W[place]-Interval (MSEC) 152 ms [facility] QRS-Interval (MSEC) 144 ms [facility] QT-Interval (MSEC) 442 ms [facility] QTc 480 ms [facility] R Zap 227 degrees [facility] T Zap 67 degrees [facility] Diagnosis Normal sinus rhythm Right bundle branch block , plus right ventricular hypertrophy Abnormal ECG Confirmed by Rhaul GRANDE [facility] ([id number]) on 03/05/2025 8:20:01 AM [facility] 03/02/2025 8:08 PM CDT 03/05/2025 8:20 AM CDT Joe Mariee MD ECG ORDERABLES Final Res ult Performing Organization Address City/[facility]/ZIP Co de Phone Number [facility] * CT Pelvis WO Contrast (03/02/2025 2:00 [...] by: Vicente Phillips M.D. Piotr Machuca MD [facility] XR PROCEDURES Final Result * XR Chest [...] MD LAB BLOOD ORDERABLES Roberta dolores Result [facility] [place] [address] * Differential, auto (03/02/2025 4:15 AM CDT) Neutrophil abs 5.82 1.50 - 6.50 K/cumm Imm gran abs 0.03 0.00 - 0.10 K/cumm [facility] Lymphocyte abs 1.49 0.80 - 3.30 K/cumm [facility] Monocyte abs 0.80 0.20 - 0.80 K/cumm [facility] Eosinophil abs 0.03 0.00 - 0.50 K/cumm [facility] Basophil abs 0.02 0.00 - 0.10 K/cumm [facility] Neutrophil pct 71.0 % [facility] Comment: Interpretive Data Percent cell count reference ranges are not reported, since discordance with absolute values may lead to misinterpretation of CBC data. Current Interpretive Data was last revised on 2017. Imm gran pct 0.4 % [facility] Comment: Interpretive Data Percent cell count reference ranges are not reported, since discordance with absolute values may lead to misinterpretation of CBC data. Current Interpretive Data was last revised on 2017. Lymphocyte pct 18.2 % [facility] Comment: Interpretive Data Percent cell count reference ranges are not reported, since discordance with absolute values may lead to misinterpretation of CBC data. Current Interpretive Data was last revised on 2017. Monocyte pct 9.8 % [facility] Comment: Interpretive Data Percent cell count reference ranges are not reported, since discordance with absolute values may lead to misinterpretation of CBC data. Current Interpretive Data was last revised on 2017. Eosinophil pct 0.4 % [facility] Comment: Interpretive Data Percent cell count reference ranges are not reported, since discordance with absolute values may lead to misinterpretation of CBC data. Current Interpretive Data was last revised on 2017. Basophil pct 0.2 % [facility] Comment: Interpretive Data Percent cell count reference ranges are not reported, since discordance with absolute values may lead to misinterpretation of CBC data. Current Interpretive Data was last revised on 2017. Blood 03/02/2025 4:15 AM CDT 03/02/2025 4:24 AM CDT Cleveland Pierce MD LAB BLOOD ORDERABLES Roberta l Result [facility] [place] [address] * (ABNORMAL) CBC with auto differential (03/02/2025 4:15 AM CDT) WBC 8.19 3.80 - 9.90 K/cumm Hgb 11.4(L) 11.9 - 15.5 g/dL [facility] Hct 34.6(L) 35.6 - 45.5 % [facility] Plt 209 150 - 400 K/cumm [facility] MPV 10.0 9.1 - 12.3 fL [facility] RBC 3.54(L) 3.90 - 5.20 M/cumm [facility] MCV 97.7(H) 81.3 - 96.4 fL [facility] MCH 32.2 27.1 - 33.3 pg [facility] MCHC 32.9 32.3 - 35.7 g/dL [facility] RDW CV 11.8 11.1 - 14.9 % [facility] RDW SD 42.8 35.7 - 48.1 fL [facility] NRBC abs 0.00 0.00 - 0.01 K/cumm [facility] Blood 03/02/2025 4:15 AM CDT 03/02/2025 4:24 AM CDT Cleveland Pierce MD LAB BLOOD ORDERABLES Roberta l Result Performing Organization Address [facility] Co de Phone Number [facility] [place] [address] * (ABNORMAL) aPTT (03/02/2025 4:15 AM CDT) [...] ORDERABLES Roberta l Result Performing Organization Address [facility] [[email or web address]] de Phone Number [facility] [place] [address] * Protime-INR (03/02/2025 4:15 AM CDT) PT 11.3 10.2 - 13.5 sec INR 1.00 0.90 - 1.20 [facility] Comment: Interpretive data Oral anticoagulant therapeutic [...] Roberta l Result Performing Organization Address [facility] Co de Phone Number [facility] [place] [address] * (ABNORMAL) Basic metabolic panel (03/02/2025 4:15 AM CDT) Sodium 141 135 - 145 mmol/L Potassium, pl 4.5 3.3 - 4.9 mmol/L [facility] Chloride 111(H) 97 - 110 mmol/L [facility] CO2 23 22 - 32 mmol/L [facility] Anion gap 7 2 - 15 mmol/L [facility] BUN 18 6 - 25 mg/dL [facility] Creatinine 0.75 0.60 - 1.10 mg/dL [facility] Glucose 124 70 - 199 mg/dL [facility] Comment: Interpretive Data Fasting glucose >/= [...] 2022. Calcium 9.7 8.5 - 10.3 mg/dL [facility] Blood 03/02/2025 4:15 AM CDT 03/02/2025 4:24 AM CDT Cleveland Pierce MD LAB BLOOD ORDERABLES Roberta bernal Result Performing Organization Address City/State/[facility] Co de Phone Number [facility] [place] [address] * COLONOSCOPY (07/23/2021 9:14 AM DEPUTY BRAND INSPECTOR) Anatomical Region Laterality Modality Other Narrative Procedure Note Ashly Sparks MD - 07/23/2021 9:14 AM [facility] ENDOSCOPY LAB Patient Name: Lluvia Brink Procedure Date: 07/23/2021 9:14 AM Date of : 1955 Admit Type: Outpatient Age: 66 Gender: Female Attending MD: Ashly Sparks M.D. Room: [facility] ENDOSCOPY ROOM 05 Note Status: Finalized [...] The scope was passed under direct vision.The [id number] was introduced through the anusand advanced to [...] Most Recently Relevant to Health Maintenance Insurance [facility] MEDICARE ADVANTAGE [facility] MEDICARE ADVANTAGE Advance Directives For more information, please contact: [phone] * Full Code (Latest Code Status on File) Date Activated Date Inactivated Comments 03/02/2025 4:57 PM 03/06/2025 11:28 PM * Full Code Date Activated Date Inactivated Comments 07/23/2021 1:41 PM 07/28/2021 4:41 PM * Full Code Date Activated Date Inactivated Comments 07/23/2021 7:15 AM 07/23/2021 12:29 PM Care Teams Rehab Specialist Relationship Specialty Start Date End Date Darin Valles PA [address] [place] [address] PCP - General Internal Medicine 05/27/21 Portillo Maciel MD [phone] [place] [address] Surgeon Colon and Rectal Surgery 07/28/21 [place] [address] [address] [facility] [address] [place] [address] Canning Machine Operator Gastroenterology 07/28/21
--- OUTSIDE RECORDS SUMMARY | 2025-05-02 12:19 | XMS_ITS ---
Author Organization [facility] Address [address] [place] [address] Care Team Providers Care Sales Representative Jewelry Name Role Phone Darin Valles Primary Care [...] (09/28/2021): Added automatically from request for surgery [id number] Abnormal electrocardiogram (ECG) (EKG) Allergic rhinitis 09/07/2021 [...] from the original note were not included. [facility] [address] [place] [address] This Survivorship Care Plan is a cancer [...] Information: Primary Care Physician Darin Valles PA [phone] Surgeon Portillo Maciel MD [phone] Radiation Oncologist No care steam tank operator to display Medical Oncologist No care steam tank operator to display Attendant Child Activity Pradeep Guerra MD [phone] Treatment Summary Cancer Diagnosis Information Diagnosis Malignant [...] Help learning to eat healthier, call the embossing calender operator at: [facility] for [facility] . Have an active lifestyle, [...] physician. Resources you may be interested in: [facility] Cancer [place] A National [facility] http://www.[facility]/ [facility] 1st floor of [facility] [phone]. Computer access, educational material, counseling services (FREE) [employer]: the place for ostomy resources, advocacy, and support. www.ostomy.org The ostomy nurse at [facility] can be reached at [phone] Online Resources: www.cancer.net; http://www.cdc.gov/cancer/survivorship; http://www.cancercare.org/tagged/post-treatment_survivorship; http://www.cancer.gov/about-cancer/coping/survivorship [employer]: https://survivorship.cancer.gov/ an online tool for cancer survivors andcaregivers created by the [place] [employer] and the National Cancer [place]. It provides: Information on dealing with side effects from cancer and treatment Caregivers with support and resources Practical advice about talking to friends and family about cancer Questions to ask their health care team Help understanding their rights in the workplace
[2025-05-02 12:24] LABS: Add Urine Microscopic? YES; Appearance Urine Clear (Clear); Glucose Urine UA Negative (Negative); Leukocyte Esterase Ur Trace LEU/UL (Negative); Nitrate Urine Negative (Negative); Non Pathogenic Casts 0-2; Specific Grav Ur 1.020 (1.001-1.035)
[2025-05-02] MEDS: PHENobarbitaL sodium (*CRX) 130 MG/ML VIAL 100 MG IV PUSH (12:51)
== END 2025-05-02 13:50 ==
PROVIDERS: Emergency Provider Emergency Medicine
DX: G40.909 Epilepsy, unspecified, not intractable, without status epilepticus (principal); N39.0 Urinary tract infection, site not specified; Z20.822 Contact with and (suspected) exposure to COVID-19; Z79.899 Other long term (current) drug therapy
CPT/HCPCS: 36415; 71045; 80053; 80177; 81001; 82948; 83605; 85025; 87086; 87637; 96374; 96375; 99284; J1953; J2560

== ENCOUNTER 2025-06-03 07:30 | Emergency (ER) | payer MEDICARE, MEDICAID, SELFPAY ==
--- NOTE | ~2025-06-03 | CT_ITS ---
CT ABDOMEN AND PELVIS WITHOUT CONTRAST Clinical History: ill feeling, lower ab pain Comparison: None Technique: Unenhanced axial images lung bases to symphysis pubis Coronal, sagittal reformats CT images acquired with automatic exposure control for dose reduction DLP: 270 mGy-cm Findings: Without intravenous contrast, sensitivity for detecting visceral parenchymal abnormalities decreased. Lung bases: Clear. Visualized heart and pericardium: Unremarkable. Liver: Unremarkable. Gallbladder: Unremarkable. Spleen: Unremarkable. Pancreas: Unremarkable. Adrenal glands: Unremarkable. Kidneys: Right kidney- No hydronephrosis. No renal stones. Left kidney- No hydronephrosis. A few small stones. Distal esophagus/stomach: Unremarkable. Small bowel loops: Normal caliber and wall thickness. A few air-fluid levels suggesting possible enteritis. Colon: Rectal suture line. Normal RLQ appendix. Nodes: No enlarged nodes. Peritoneum: No ascites. No free intraperitoneal air. Urinary bladder: Unremarkable. Uterus: Unremarkable. Adnexa: No masses. Bilobed cystic focus right side Bones: Superior endplate compression T12. Chronic fractures left hemipelvis. Soft tissues: Unremarkable. Unopacified abdominal aorta: No aneurysmal dilatation. Atherosclerotic disease. IMPRESSION: 1. No acute abnormality. 2. Bilobed cystic focus right adnexa. Recommend short interval follow-up transvaginal sonography. 3. Additional findings as above. Reviewed, dictated and finalized at location R. S REPRESENTATIVE UNIFORMS IMPRESSION: 1. No acute abnormality. 2. Bilobed cystic focus right adnexa. Recommend short interval follow-up trans vaginal sonography. 3. Additional findings as above.
[2025-06-03 07:33] VITALS: BP 115/78; PULSE 107; RESP 33; TEMP 37.6; O2SAT 92
--- NOTE | 2025-06-03 08:11 | ED_ITS ---
HPI - General Adult General Chief complaint: Urogenital-Female Stated complaint: UTI - triggers seizures Time Seen by Provider: 06/03/25 07:38 History of Present Illness HPI narrative: 69-year-old female with history epilepsy and COPD present to the emergency department for evaluation for urinary symptoms. Patient reports she woke up this morning she was having burning with urination. Patient states this does feel similar to her previous urinary tract infections. Patient denies any recent coughs colds fevers nausea vomiting or diarrhea. She states she has not yet taken her seizure medications, she reports she takes them at 9:00 a.m.. These will be ordered for her in the emergency department. Related Data Allergies Allergy/AdvReac Type Severity Reaction Status Date / Time iodine Allergy Intermediate Unknown Verified 06/03/25 07:39 Review of Systems 2 Review of Systems: All systems reviewed & are unremarkable except as noted in HPI and below PMFSH Surgical History Surgical History History of ankle surgery Social History Social History Smoking status: Never smoker Exam 2 Narrative: APPEARANCE: Well appearing, no pain, no distress, well-nourished. HEAD: normocephalic, atraumatic. EYES: PERRLA/EOMI, conjunctivae clear. NOSE: Normal no drainage EARS:TMS clear with good light reflex. THROAT: Pharynx clear, no exudate. NECK: Supple. No adenopathy, no masses. RESPIRATORY: Airway patent, respirations nonlabored. Clear to auscultation bilaterally, no rales, rhonchi, wheezing. CARDIOVASCULAR: Regular rate and rhythm without murmurs rubs or gallops. ABDOMINAL: Soft, nontender, nondistended, normal bowel sounds MUSCULOSKELETAL: Moves all extremities. Strength/ROM intact, No edema, No calf tenderness. NEURO: Alert. Cranial nerves II through XII intact. Good gait. Good coordination SKIN: Warm, dry. Normal Color Course Vital Signs Vital signs: Vital Signs Temperature 99.6 F 06/03/25 07:33 Pulse Rate 107 H 06/03/25 07:33 Respiratory Rate 33 H 06/03/25 07:33 Blood Pressure 115/78 06/03/25 07:33 Pulse Oximetry 92 06/03/25 07:33 Oxygen Delivery Room Air 06/03/25 07:33 Temperature 99.6 F 06/03/25 07:33 Pulse Rate 96 06/03/25 10:13 Respiratory Rate 20 06/03/25 10:13 Blood Pressure 119/73 06/03/25 10:13 Pulse Oximetry 92 06/03/25 10:13 Oxygen Delivery Room Air 06/03/25 07:33 Medical Decision Making MDM Narrative Medical decision making narrative: 69-year-old female present to the emergency department for evaluation for burning with urination. Patient is currently afebrile with no leukocytosis hemoglobin 14.5. Patient has no significant abnormalities on her CMP. Patient does have mild elevation in AST ALT alk-phos but normal T bili. UA was negative for an infection. CT scan was ordered due to the complaint of not feeling well with burning urination. CT scan showed no acute abnormality. but did show a bilobed cystic focus right adnexa. patient was encouraged close follow-up with primary care physician for additional outpatient ultrasound imaging. All questions concerns were addressed patient was well-appearing at time of discharge. Differential Diagnosis Differential Diagnosis: UTI, COVID, RSV, influenza, pneumonia Vital Signs Vital Signs: Vital Signs Temperature 99.6 F 06/03/25 07:33 Pulse Rate 107 H 06/03/25 07:33 Respiratory Rate 33 H 06/03/25 07:33 Blood Pressure 115/78 06/03/25 07:33 Pulse Oximetry 92 06/03/25 07:33 Oxygen Delivery Room Air 06/03/25 07:33 Temperature 99.6 F 06/03/25 07:33 Pulse Rate 96 06/03/25 10:13 Respiratory Rate 20 06/03/25 10:13 Blood Pressure 119/73 06/03/25 10:13 Pulse Oximetry 92 06/03/25 10:13 Oxygen Delivery Room Air 06/03/25 07:33 Lab Data Lab results reviewed: Yes I reviewed the patient's lab results. 06/03/25 08:19 06/03/25 08:19 Labs: Lab Results 06/03/25 06/03/25 Range/Units 07:48 08:19 WBC 3.7 L (4.5-10.0) K/mm3 RBC 4.82 (4.2-5.4) M/mm3 Hgb 14.5 (12.0-15.0) g/dL Hct 43.3 (37.0-47.0) % MCV 89.8 (80-100) fl MCH 30.1 (26-34) pg MCHC 33.5 (32-36) g/dl RDW 11.9 (11.5-14.5) % Plt Count 100 L D (150-375) k/mm3 MPV 10.6 H (7.4-10.4) fl Immature Gran % (Auto) 0.3 (0-0.5) % Neut % (Auto) 68.9 (45.5-73.1) % Lymph % (Auto) 18.8 (18.3-44.2) % [place] % (Auto) 12.0 H (2.6-8.5) % Eos % (Auto) 0.0 (0-4.4) % Baso % (Auto) 0.0 L (0.2-1.2) % Lymph # (Auto) 0.69 L (0.9-3.2) K/mm3 [place] # (Auto) 0.4 (0.1-0.6) K/mm3 Eos # (Auto) 0.0 (0-0.3) K/mm3 Baso # (Auto) 0.0 (0.0-0.1) K/mm3 Abs Immat Gran (auto) 0.01 (0.00-0.031) K/mm3 Absolute Neuts (auto) 2.5 (1.3-6.7) K/mm3 Absolute Nucleated RBC 0.000 (0.0-0.012) K/mm3 Nucleated RBC % 0.0 (0.0-0.2) % % Immature Plt Fraction 3.8 (0.9-11.2) % Sodium 133 L (137-145) mmol/L Potassium 3.9 (3.4-5.0) mmol/L Chloride 101 (98-107) mmol/L Carbon Dioxide 23 (22-30) mmol/L Anion Gap 9 (4-12) mmol/L BUN 13 (7-17) mg/dL Creatinine 0.68 L (0.7-1.0) mg/dL Estim Creat Clear Calc 66 ml/min Estimated GFR > 60 (59 - ) Glucose 113 H (65-110) mg/dL Calcium 10.0 (8.4-10.2) mg/dL Total Bilirubin 0.5 (0.2-1.3) mg/dL AST 247 H (14-36) U/L ALT 163 H (6-35) U/L Alkaline Phosphatase 318 H (38-126) U/L Total Protein 7.2 (6.3-8.2) g/dL Albumin 4.0 (3.5-5.1) g/dL Urine Color Yellow (Yellow) Urine Appearance Clear (Clear) Urine pH 5.5 (5.0-9.0) Ur Specific [place] 1.023 (1.001-1.035) Urine Protein 2+ H (Negative) mg/dL Urine Glucose (UA) Negative (Negative) mg/dL Urine Ketones 1+ H (Negative) mg/dL Ur Blood (Man) 1+ H (Negative) Urine Nitrate Negative (Negative) Urine Bilirubin Negative (Negative) Urine Urobilinogen 1.0 (<2.0) mg/dL Add Ur Microanalysis Reviewed Leukocyte Esterase Rfl Negative (Negative) JOSE ALEJANDRO/UL Urine RBC 0-2 (0-2) /hpf Urine WBC 0-5 (0-3) /hpf Ur Squamous Epith Cells None seen (Few) /hpf Urine Bacteria None seen /hpf Urine Casts 3-5 Imaging Data Radiologist's impression: Impressions Abdomen/Pelvis CT 06/03/25 09:39 IMPRESSION: 1. No acute abnormality. 2. Bilobed cystic focus right adnexa. Recommend short interval follow-up transvaginal sonography. 3. Additional findings as above. Discharge Plan Discharge Clinical Impression: Dysuria Patient Disposition: Home Condition: Stable Instructions: Antibiotic Form Additional Instructions: Have close follow-up with your primary care physician for additional outpatient testing including a follow-up pelvic ultrasound. If you have any worsening symptoms then please call or return to the emergency department. Patient Language: Citizen [place] Prescriptions: No Action atorvastatin 10 mg tablet 10 mg PO DAILY Qty: 30 3RF levetiracetam [Keppra XR] 500 mg tablet extended release 24 hr 1,500 mg PO DAILY Qty: 90 6RF Rx Instructions: start with 1 tablet at bedtime for 2 weeks and then 2 tablets at bedtime for 2 weeks and then 3 tablets to continue lamotrigine 200 mg tablet See Rx Instructions .ROUTE .COMPLEX Qty: 120 0RF Dose Instruction: TAKE 2 TABLET BY MOUTH TWICE DAILY Rx Instructions: TAKE 2 TABLET BY MOUTH TWICE DAILY phenobarbital 60 mg tablet 60 mg PO Q8H Qty: 90 2RF Follow-up/Referrals: PHYSICIAN,SILK SCREEN PRINTER [Non-Staff, Internal Medicine]
[2025-06-03 08:14] LABS: Add Urine Microscopic? YES; Appearance Urine Clear (Clear); Glucose Urine UA Negative (Negative); Leukocyte Esterase Ur Negative LEU/UL (Negative); Need Manual Microscopic Reviewed; Nitrate Urine Negative (Negative); Specific Grav Ur 1.023 (1.001-1.035)
[2025-06-03 08:30] LABS: Hematocrit 43.3 % (37.0-47.0); Hemoglobin 14.5 g/dL (12.0-15.0); Immature Granulocyte Percent A 0.3 % (0-0.5); Immature Platelet Fraction Pct 3.8 % (0.9-11.2); Lymphocytes Absolute Auto 0.69 K/mm3 (0.9-3.2); Mean Corpuscular HGB Conc 33.5 g/dl (32-36); Mean Corpuscular Hemoglobin 30.1 pg (26-34); Mean Corpuscular Volume 89.8 fl (80-100); Nucleated Red Blood Cells Absolute Auto 0.000 K/mm3 (0.0-0.012); Nucleated Red Blood Cells Perc 0.0 % (0.0-0.2); Platelet Count Result 100 k/mm3 (150-375); Red Blood Count 4.82 M/mm3 (4.2-5.4); White Blood Count 3.7 K/mm3 (4.5-10.0)
[2025-06-03 08:39] LABS: Alanine Aminotransferase 163 U/L (6-35); Albumin Level 4.0 g/dL (3.5-5.1); Alkaline Phosphatase 318 U/L (38-126); Anion Gap 9 mmol/L (4-12); Aspartate Amino Transferase 247 U/L (14-36); Bilirubin,Total 0.5 mg/dL (0.2-1.3); Blood Urea Nitrogen 13 mg/dL (7-17); Calcium 10.0 mg/dL (8.4-10.2); Carbon Dioxide 23 mmol/L (22-30); Chloride 101 mmol/L (98-107); Estimated CRCL calculation 66 ml/min; Estimated Glomerular Filt Rate > 60; Glucose 113 mg/dL (65-110); Potassium 3.9 mmol/L (3.4-5.0); Sodium 133 mmol/L (137-145); Total Protein 7.2 g/dL (6.3-8.2)
[2025-06-03] MEDS: PHENobarbital (*CRX) 60 MG TABLET PO (09:05)
[2025-06-03 09:06] VITALS: BP 118/69; PULSE 94; RESP 22; O2SAT 92
--- NOTE | 2025-06-03 10:05 | PHAR ---
Drug Name:levETIRAcetam Ingredients:??Levetiracetam?-- 500 MG Color:?White Shape:?Oval Imprint:??HH?;?172 Imprint code variation:??172?;?HH Imprint Code Description:?Tablet debossed with HH on one side and 172 on the other side. Form:?Oral Tablet, Extended Release
[2025-06-03 10:13] VITALS: BP 119/73; PULSE 96; RESP 20; O2SAT 92
== END 2025-06-03 10:16 | disposition home or self-care (01) ==
PROVIDERS: Emergency Provider Emergency Medicine
DX: R30.0 Dysuria (principal); J44.9 Chronic obstructive pulmonary disease, unspecified
CPT/HCPCS: 36415; 74176; 80053; 81001; 85025; 85055; 99284; A9270